=== PATIENT | male | born 1960 | race Hispanic/Latino ===

== ENCOUNTER 2021-07-13 11:40 | Inpatient (IN) | payer SELFPAY, OTHER ==
[2021-07-13] VITALS (10 sets, daily range): BP systolic 104–148; BP diastolic 65–87
[~2021-07-13] VITALS: Ht 160 cm; Wt 70.9 kg
[2021-07-13] MEDS ORDERED: DEXAMETHASONE SOD PHOS 10 MG/1 ML VIAL IV NR (12:00)
[2021-07-13 12:21] LABS: BASOPHILS % 0.1 % (0.0-1.0); EOSINOPHILS % 0.3 % (0.0-6.0); HEMATOCRIT 37.9 % (38.2-49.6); HEMOGLOBIN 12.8 g/dL (14.0-18.0); LYMPHOCYTES # (AUTO) 0.8 (1.0-3.2); LYMPHOCYTES % 11.8 % (18.0-39.1); MEAN CORPUSCULAR HEMOGLOBIN 30.2 pg (28-32); MEAN CORPUSCULAR HGB CONC 33.8 g/dL (31-35); MEAN CORPUSCULAR VOLUME 89.4 fL (81-99); MONOCYTES # (AUTO) 0.2 (0.2-0.8); MONOCYTES % 2.4 % (4.4-11.3); NEUTROPHILS % 84.5 % (38.7-80.0); PLATELET COUNT 239 x10e3/uL (140-360); RED BLOOD COUNT 4.24 x10e6/uL (4.3-5.7); RED CELL DISTRIBUTION WIDTH 13.5 % (11.7-14.4)
[2021-07-13 12:39] LABS: ALBUMIN/GLOBULIN RATIO 0.4 (0.8-2.0); ANION GAP 14.8 mmol/L (8-16); CALCIUM 7.9 mg/dL (8.4-10.2); CREATININE, SERUM 0.7 mg/dL (0.72-1.25); POTASSIUM 4.8 mmol/L (3.5-5.1)
[2021-07-13] MEDS ORDERED: HYDRALAZINE HCL 20 MG/ML VIAL IV PRN (14:15)
[2021-07-13] MEDS ORDERED: POTASSIUM CHLORIDE 20 MEQ TAB CR PO PRN (14:15)
[2021-07-13] MEDS ORDERED: GUAIFENESIN/CODEINE 5 ML LIQD PO PRN (14:15)
[2021-07-13] MEDS ORDERED: SIMETHICONE 80 MG CHEW PO PRN (14:15)
[2021-07-13] MEDS ORDERED: DEXTROSE 50% SYRINGE 50 ML IV PRN ×2 (14:15→15:00)
[2021-07-13] MEDS ORDERED: ONDANSETRON HCL INJ 2MG/ML 2ML 2 MG/ML VIAL IV PRN (14:15)
[2021-07-13] MEDS ORDERED: LIDOCAINE 4% PATCH TP PRN (14:15)
[2021-07-13] MEDS ORDERED: DOCUSATE SODIUM 100 MG CAP PO PRN (14:15)
[2021-07-13] MEDS ORDERED: TRAMADOL HCL 50 MG TAB PO PRN (14:15)
[2021-07-13] MEDS ORDERED: DIPHENHYDRAMINE HCL 25 MG CAP PO PRN (14:15)
[2021-07-13] MEDS ORDERED: ALBUTEROL/IPRATROPIUM 3 ML NEB NEB PRN (14:15)
[2021-07-13] MEDS ORDERED: CHLORASEPTIC SPRAY 177 ML BTL MM PRN (14:15)
[2021-07-13] MEDS: CEFTRIAXONE 1 GM in SODIUM CHLORIDE 0.9% 50ML 50 ML IV SCH (14:39)
[2021-07-13] MEDS ORDERED: REMDESIVIR 200MG 200 MG in SODIUM CHLORIDE 0.9% 100 ML IV ONE (14:45)
[2021-07-13] MEDS ORDERED: ENOXAPARIN SOD INJ 40 MG/0.4 ML SYR SC SCH (17:00)
[2021-07-13 17:35] LABS: FERRITIN 1891.76 ng/mL (21.81-274.66)
[2021-07-13] MEDS: INSULIN REGULAR, HUMAN 100 UNIT/1 ML SQ SCH ×2 (17:46→21:33)
[2021-07-13] MEDS: ENOXAPARIN INJ 80 MG/0.8 ML SYR SC SCH (21:32)
[2021-07-13] MEDS: METHYLPREDNISOLONE SOD SUCC 125 MG/2ML VIAL IV SCH (21:33)
[2021-07-14] VITALS (24 sets, daily range): BP systolic 89–119; BP diastolic 55–74
[2021-07-14 05:38] LABS: HEMATOCRIT 39.1 % (38.2-49.6); HEMOGLOBIN 13.1 g/dL (14.0-18.0); LYMPHOCYTES # (AUTO) 0.7 (1.0-3.2); MEAN CORPUSCULAR HGB CONC 33.5 g/dL (31-35); MEAN CORPUSCULAR VOLUME 89.5 fL (81-99); MONOCYTES # (AUTO) 0.1 (0.2-0.8); NEUTROPHILS % 82.4 % (38.7-80.0); PLATELET COUNT 261 x10e3/uL (140-360); RED BLOOD COUNT 4.37 x10e6/uL (4.3-5.7); RED CELL DISTRIBUTION WIDTH 13.4 % (11.7-14.4)
[2021-07-14 06:12] LABS: ANION GAP 13.3 mmol/L (8-16); CALCIUM 8.4 mg/dL (8.4-10.2); CREATININE, SERUM 0.66 mg/dL (0.72-1.25); MAGNESIUM 2.1 MG/DL (1.3-2.1); PHOSPHORUS 3.3 MG/DL (2.3-4.7); POTASSIUM 4.3 mmol/L (3.5-5.1)
[2021-07-14] MEDS: METHYLPREDNISOLONE SOD SUCC 125 MG/2ML VIAL IV SCH (06:27)
[2021-07-14 06:33] LABS: THYROID STIMULATING HORMONE 0.161 uIU/mL (0.350-4.940)
[2021-07-14] MEDS: PANTOPRAZOLE SOD 40 MG TABEC PO SCH (08:16)
[2021-07-14] MEDS: REMDESIVIR 100MG 100 MG in SODIUM CHLORIDE 0.9% 100 ML IV SCH (08:30)
[2021-07-14] MEDS: INSULIN REGULAR, HUMAN 100 UNIT/1 ML SQ SCH ×4 (08:30→20:20)
[2021-07-14] MEDS: CEFTRIAXONE 1 GM in SODIUM CHLORIDE 0.9% 50ML 50 ML IV SCH (08:31)
[2021-07-14] MEDS: ENOXAPARIN INJ 80 MG/0.8 ML SYR SC SCH ×2 (08:31→20:16)
[2021-07-14] MEDS ORDERED: DEXAMETHASONE PHOS 4MG/ML 5ML MULTIDOSE VIAL IV SCH (09:00)
[2021-07-14] MEDS ORDERED: LACTATED RINGER'S 500 ML INJ ONE (10:30)
[2021-07-14] MEDS: INSULIN GLARGINE 100 UNITS/ML VIAL SQ SCH ×2 (13:00→20:20)
[2021-07-14] MEDS: GUAIFENESIN/CODEINE 5 ML LIQD PO PRN ×2 (18:15→22:17)
[2021-07-14] MEDS ORDERED: METHYLPREDNISOLONE SOD SUCC 125 MG/2ML VIAL IV SCH (21:00)
[2021-07-14] MEDS: Vancomycin IV 1 GM in SODIUM CHLORIDE 0.9% 250ML 250 ML IV SCH (21:58)
[2021-07-14] MEDS: BENZONATATE 100 MG CAP PO PRN (22:17)
[2021-07-15] VITALS (25 sets, daily range): BP systolic 91–135; BP diastolic 58–82
[2021-07-15 05:02] LABS: BASOPHILS % 0.2 % (0.0-1.0); HEMATOCRIT 37.6 % (38.2-49.6); HEMOGLOBIN 12.8 g/dL (14.0-18.0); LYMPHOCYTES # (AUTO) 0.8 (1.0-3.2); LYMPHOCYTES % 6.7 % (18.0-39.1); MEAN CORPUSCULAR HEMOGLOBIN 29.9 pg (28-32); MEAN CORPUSCULAR VOLUME 87.9 fL (81-99); MONOCYTES # (AUTO) 0.2 (0.2-0.8); MONOCYTES % 1.9 % (4.4-11.3); NEUTROPHILS # (AUTO) 10.9 (2.1-6.9); NEUTROPHILS % 90.6 % (38.7-80.0); PLATELET COUNT 309 x10e3/uL (140-360); RED BLOOD COUNT 4.28 x10e6/uL (4.3-5.7); RED CELL DISTRIBUTION WIDTH 13.4 % (11.7-14.4)
[2021-07-15 05:22] LABS: ALBUMIN 1.8 g/dL (3.5-5.0); ALBUMIN/GLOBULIN RATIO 0.5 (0.8-2.0); CALCIUM 8.3 mg/dL (8.4-10.2); CREATININE, SERUM 0.65 mg/dL (0.72-1.25)
[2021-07-15 06:25] LABS: LYMPHOCYTES % (MANUAL) 6 % (19-48); MONOCYTES % (MANUAL) 1 % (3.4-9.0); NEUTROPHILS % (MANUAL) 93 % (40-74); PLATELET ESTIMATE ADEQUATE; PLATELET MORPHOLOGY COMMENT NORMAL; RBC MORPHOLOGY COMMENT NORMAL
[2021-07-15] MEDS: INSULIN REGULAR, HUMAN 100 UNIT/1 ML SQ SCH ×4 (07:30→21:26)
[2021-07-15] MEDS: PANTOPRAZOLE SOD 40 MG TABEC PO SCH (07:36)
[2021-07-15] MEDS ORDERED: ONDANSETRON HCL 4 MG ORAL DISINTEGRATING TAB SL PRN (07:45)
[2021-07-15] MEDS: CEFTRIAXONE 1 GM in SODIUM CHLORIDE 0.9% 50ML 50 ML IV SCH (08:27)
[2021-07-15] MEDS: BARICITINIB 2 MG TABLET PO SCH (08:28)
[2021-07-15] MEDS: ENOXAPARIN INJ 80 MG/0.8 ML SYR SC SCH ×2 (08:29→20:04)
[2021-07-15] MEDS: INSULIN GLARGINE 100 UNITS/ML VIAL SQ SCH ×2 (08:31→21:26)
[2021-07-15] MEDS: REMDESIVIR 100MG 100 MG in SODIUM CHLORIDE 0.9% 100 ML IV SCH (09:14)
[2021-07-15] MEDS: Vancomycin IV 1 GM in SODIUM CHLORIDE 0.9% 250ML 250 ML IV SCH ×2 (11:01→21:15)
[2021-07-15] MEDS: GUAIFENESIN/CODEINE 5 ML LIQD PO PRN (12:58)
[2021-07-15] MEDS: BENZONATATE 100 MG CAP PO PRN (20:04)
[2021-07-15 20:39] LABS: INR 1.03; PROTHROMBIN TIME 14.3 seconds (11.9-14.5)
[2021-07-15 20:40] LABS: PARTIAL THROMBOPLASTIN TIME 27.2 seconds (23.8-35.5)
[2021-07-15] MEDS: METHYLPREDNISOLONE SOD SUCC 40 MG/ML VIAL 1ML IV SCH (21:15)
[2021-07-16] VITALS (25 sets, daily range): BP systolic 92–118; BP diastolic 60–83
[2021-07-16] MEDS: DEXTROSE 50% SYRINGE 50 ML IV PRN (00:45)
[2021-07-16] MEDS ORDERED: SODIUM CHLORIDE 0.9% 250ML 250 ML ONE (03:43)
[2021-07-16 06:10] LABS: BASOPHILS % 0.1 % (0.0-1.0); HEMOGLOBIN 13.8 g/dL (14.0-18.0); LYMPHOCYTES # (AUTO) 0.8 (1.0-3.2); LYMPHOCYTES % 8.4 % (18.0-39.1); MEAN CORPUSCULAR HEMOGLOBIN 30.1 pg (28-32); MEAN CORPUSCULAR HGB CONC 33.7 g/dL (31-35); MEAN CORPUSCULAR VOLUME 89.5 fL (81-99); MONOCYTES # (AUTO) 0.2 (0.2-0.8); NEUTROPHILS # (AUTO) 8.4 (2.1-6.9); NEUTROPHILS % 89.1 % (38.7-80.0); PLATELET COUNT 301 x10e3/uL (140-360); RED BLOOD COUNT 4.58 x10e6/uL (4.3-5.7); RED CELL DISTRIBUTION WIDTH 13.2 % (11.7-14.4)
[2021-07-16 06:32] LABS: ALBUMIN/GLOBULIN RATIO 0.5 (0.8-2.0); ANION GAP 14.1 mmol/L (8-16); CALCIUM 8.2 mg/dL (8.4-10.2); CREATININE, SERUM 0.61 mg/dL (0.72-1.25); POTASSIUM 4.1 mmol/L (3.5-5.1)
[2021-07-16] MEDS: PANTOPRAZOLE SOD 40 MG TABEC PO SCH (07:26)
[2021-07-16] MEDS: INSULIN REGULAR, HUMAN 100 UNIT/1 ML SQ SCH ×4 (07:30→21:15)
[2021-07-16] MEDS: BENZONATATE 100 MG CAP PO PRN (08:36)
[2021-07-16] MEDS: BARICITINIB 2 MG TABLET PO SCH (08:36)
[2021-07-16] MEDS: CEFTRIAXONE 1 GM in SODIUM CHLORIDE 0.9% 50ML 50 ML IV SCH (08:36)
[2021-07-16] MEDS: ENOXAPARIN INJ 80 MG/0.8 ML SYR SC SCH ×2 (08:38→21:15)
[2021-07-16] MEDS: INSULIN GLARGINE 100 UNITS/ML VIAL SQ SCH ×2 (08:39→21:16)
[2021-07-16] MEDS: REMDESIVIR 100MG 100 MG in SODIUM CHLORIDE 0.9% 100 ML IV SCH (09:26)
[2021-07-16] MEDS: Vancomycin IV 1 GM in SODIUM CHLORIDE 0.9% 250ML 250 ML IV SCH (10:52)
[2021-07-16] MEDS: GUAIFENESIN/CODEINE 5 ML LIQD PO PRN ×2 (12:37→21:53)
[2021-07-16] MEDS: METHYLPREDNISOLONE SOD SUCC 40 MG/ML VIAL 1ML IV SCH (21:16)
[2021-07-17] VITALS (24 sets, daily range): BP systolic 79–148; BP diastolic 46–89
[2021-07-17] MEDS: BENZONATATE 100 MG CAP PO PRN (05:00)
[2021-07-17 05:01] LABS: BASOPHILS % 0.1 % (0.0-1.0); HEMATOCRIT 42.6 % (38.2-49.6); HEMOGLOBIN 14.7 g/dL (14.0-18.0); LYMPHOCYTES # (AUTO) 0.9 (1.0-3.2); LYMPHOCYTES % 9.7 % (18.0-39.1); MEAN CORPUSCULAR HEMOGLOBIN 30.4 pg (28-32); MEAN CORPUSCULAR HGB CONC 34.5 g/dL (31-35); MONOCYTES # (AUTO) 0.1 (0.2-0.8); MONOCYTES % 1.5 % (4.4-11.3); NEUTROPHILS # (AUTO) 7.9 (2.1-6.9); NEUTROPHILS % 87.6 % (38.7-80.0); PLATELET COUNT 283 x10e3/uL (140-360); RED BLOOD COUNT 4.84 x10e6/uL (4.3-5.7); RED CELL DISTRIBUTION WIDTH 13.3 % (11.7-14.4)
[2021-07-17 05:26] LABS: ALBUMIN/GLOBULIN RATIO 0.5 (0.8-2.0); ANION GAP 14.6 mmol/L (8-16); CALCIUM 8.3 mg/dL (8.4-10.2); CREATININE, SERUM 0.65 mg/dL (0.72-1.25); POTASSIUM 4.6 mmol/L (3.5-5.1)
[2021-07-17] MEDS: PANTOPRAZOLE SOD 40 MG TABEC PO SCH (07:37)
[2021-07-17] MEDS: INSULIN REGULAR, HUMAN 100 UNIT/1 ML SQ SCH ×4 (08:07→21:00)
[2021-07-17] MEDS: REMDESIVIR 100MG 100 MG in SODIUM CHLORIDE 0.9% 100 ML IV SCH (08:27)
[2021-07-17] MEDS: BARICITINIB 2 MG TABLET PO SCH (08:27)
[2021-07-17] MEDS: ENOXAPARIN INJ 80 MG/0.8 ML SYR SC SCH ×2 (08:27→21:26)
[2021-07-17] MEDS: INSULIN GLARGINE 100 UNITS/ML VIAL SQ SCH (08:28)
[2021-07-17] MEDS ORDERED: WATER STERILE 10 ML VIAL ONE (13:18)
[2021-07-17] MEDS ORDERED: MIDAZOLAM HCL 2 MG/2 ML VIAL ONE (13:18)
[2021-07-17] MEDS ORDERED: ETOMIDATE 2 MG/ML 10 ML INJ IV ONE (13:18)
[2021-07-17] MEDS ORDERED: VECURONIUM BROMIDE FOR INJ 20 MG VIAL ONE (13:18)
[2021-07-17] MEDS ORDERED: SUCCINYLCHOLINE CHLORIDE 20 MG/ML 10ML VIAL ONE (13:18)
[2021-07-17] MEDS ORDERED: DEXMEDETOMIDINE 400MCG/NS100ML 100 ML IV PRN (16:00)
[2021-07-17] MEDS ORDERED: SODIUM CHLORIDE 0.9% 1000ML 1,000 ML ONE ×2 (16:43→18:06)
[2021-07-17] MEDS: FENTANYL 2000MCG/NS 250 250 ML IV SCH (17:12)
[2021-07-17] MEDS: MIDAZOLAM HCL 5MG/ML 10ML VIAL 100 ML IV PRN ×2 (17:13→23:51)
[2021-07-17] MEDS ORDERED: NOREPINEPHRINE 8 MG/D5W 250 ML 250 ML IV PRN (18:00)
[2021-07-17] MEDS ORDERED: SODIUM CHLORIDE 0.9% 1000ML 500 ML IV ONE (18:00)
[2021-07-17 19:50] LABS: ABG HCO3 27 mmol/L (22-26); ABG PCO2 46 mmHg (35-45); ABG PH 7.37 (7.35-7.45); ABG PO2 70 mmHg (80-105); ABG TCO2 28
[2021-07-17] MEDS: METHYLPREDNISOLONE SOD SUCC 40 MG/ML VIAL 1ML IV SCH (21:26)
[2021-07-18] VITALS (25 sets, daily range): BP systolic 93–131; BP diastolic 47–73
[2021-07-18] MEDS: INSULIN REGULAR, HUMAN 100 UNIT/1 ML SQ SCH ×4 (00:58→17:28)
[2021-07-18] MEDS: FENTANYL 2000MCG/NS 250 250 ML IV SCH ×3 (02:20→19:42)
[2021-07-18] MEDS: MIDAZOLAM HCL 5MG/ML 10ML VIAL 100 ML IV PRN ×2 (05:39→08:57)
[2021-07-18 05:48] LABS: BASOPHILS % 0.1 % (0.0-1.0); HEMATOCRIT 40.5 % (38.2-49.6); HEMOGLOBIN 13.3 g/dL (14.0-18.0); LYMPHOCYTES # (AUTO) 0.8 (1.0-3.2); LYMPHOCYTES % 7.7 % (18.0-39.1); MEAN CORPUSCULAR HEMOGLOBIN 30.2 pg (28-32); MEAN CORPUSCULAR HGB CONC 32.8 g/dL (31-35); MEAN CORPUSCULAR VOLUME 91.8 fL (81-99); MONOCYTES # (AUTO) 0.1 (0.2-0.8); NEUTROPHILS # (AUTO) 9.2 (2.1-6.9); NEUTROPHILS % 90.3 % (38.7-80.0); PLATELET COUNT 347 x10e3/uL (140-360); RED BLOOD COUNT 4.41 x10e6/uL (4.3-5.7); RED CELL DISTRIBUTION WIDTH 13.4 % (11.7-14.4)
[2021-07-18 06:15] LABS: ALBUMIN 1.8 g/dL (3.5-5.0); ALBUMIN/GLOBULIN RATIO 0.4 (0.8-2.0); ANION GAP 13.5 mmol/L (8-16); CALCIUM 7.9 mg/dL (8.4-10.2); CREATININE, SERUM 0.76 mg/dL (0.72-1.25)
[2021-07-18 06:17] LABS: POTASSIUM 5.5 mmol/L (3.5-5.1)
[2021-07-18 07:26] LABS: LYMPHOCYTES % (MANUAL) 4 % (19-48); MONOCYTES % (MANUAL) 1 % (3.4-9.0); NEUTROPHILS % (MANUAL) 94 % (40-74); PLATELET ESTIMATE ADEQUATE; PLATELET MORPHOLOGY COMMENT NORMAL; RBC MORPHOLOGY COMMENT NORMAL
[2021-07-18 07:55] LABS: ABG HCO3 28 mmol/L (22-26); ABG PCO2 56 mmHg (35-45); ABG PH 7.31 (7.35-7.45); ABG PO2 133 mmHg (80-105); ABG TCO2 30
[2021-07-18] MEDS: BARICITINIB 2 MG TABLET PO SCH (08:41)
[2021-07-18] MEDS: FAMOTIDINE 20 MG/2 ML VIAL IV SCH ×2 (08:41→17:05)
[2021-07-18] MEDS: SENNA-S TABLET PO SCH (08:41)
[2021-07-18] MEDS: ENOXAPARIN INJ 80 MG/0.8 ML SYR SC SCH ×2 (08:42→21:13)
[2021-07-18] MEDS: INSULIN GLARGINE 100 UNITS/ML VIAL SQ SCH (08:56)
[2021-07-18 14:03] LABS: ANION GAP 13.2 mmol/L (8-16); CALCIUM 7.9 mg/dL (8.4-10.2); CREATININE, SERUM 0.71 mg/dL (0.72-1.25); POTASSIUM 5.2 mmol/L (3.5-5.1)
[2021-07-18] MEDS ORDERED: FUROSEMIDE INJ 10 MG/ML 4 ML VIAL IV ONE (14:15)
[2021-07-18] MEDS ORDERED: FUROSEMIDE INJ 10 MG/ML 4 ML VIAL ONE (14:28)
[2021-07-18] MEDS: METHYLPREDNISOLONE SOD SUCC 40 MG/ML VIAL 1ML IV SCH (22:26)
[2021-07-19] VITALS (27 sets, daily range): BP systolic 92–140; BP diastolic 41–77
[2021-07-19] MEDS: INSULIN REGULAR, HUMAN 100 UNIT/1 ML SQ SCH ×5 (00:15→23:35)
[2021-07-19] MEDS: MIDAZOLAM HCL 5MG/ML 10ML VIAL 100 ML IV PRN ×2 (03:00→15:19)
[2021-07-19 04:56] LABS: BASOPHILS % 0.1 % (0.0-1.0); EOSINOPHILS # (AUTO) 0.1 (0.0-0.4); EOSINOPHILS % 0.9 % (0.0-6.0); HEMATOCRIT 38.2 % (38.2-49.6); HEMOGLOBIN 12.9 g/dL (14.0-18.0); LYMPHOCYTES # (AUTO) 1.9 (1.0-3.2); LYMPHOCYTES % 16.2 % (18.0-39.1); MEAN CORPUSCULAR HEMOGLOBIN 29.9 pg (28-32); MEAN CORPUSCULAR HGB CONC 33.8 g/dL (31-35); MEAN CORPUSCULAR VOLUME 88.6 fL (81-99); MONOCYTES # (AUTO) 0.3 (0.2-0.8); MONOCYTES % 2.5 % (4.4-11.3); NEUTROPHILS # (AUTO) 9.3 (2.1-6.9); NEUTROPHILS % 79.3 % (38.7-80.0); PLATELET COUNT 332 x10e3/uL (140-360); RED BLOOD COUNT 4.31 x10e6/uL (4.3-5.7); RED CELL DISTRIBUTION WIDTH 13.2 % (11.7-14.4)
[2021-07-19 05:14] LABS: ALBUMIN 1.8 g/dL (3.5-5.0); ALBUMIN/GLOBULIN RATIO 0.5 (0.8-2.0); ANION GAP 13.5 mmol/L (8-16); CALCIUM 8.3 mg/dL (8.4-10.2); CREATININE, SERUM 0.7 mg/dL (0.72-1.25); POTASSIUM 4.5 mmol/L (3.5-5.1)
[2021-07-19] MEDS: FENTANYL 2000MCG/NS 250 250 ML IV SCH ×2 (05:27→15:18)
[2021-07-19 08:14] LABS: ABG HCO3 33 mmol/L (22-26); ABG PCO2 53 mmHg (35-45); ABG PH 7.41 (7.35-7.45); ABG PO2 105 mmHg (80-105); ABG TCO2 35
[2021-07-19] MEDS: BARICITINIB 2 MG TABLET PO SCH (09:41)
[2021-07-19] MEDS: FAMOTIDINE 20 MG/2 ML VIAL IV SCH ×2 (09:41→17:08)
[2021-07-19] MEDS: SENNA-S TABLET PO SCH (09:41)
[2021-07-19] MEDS: ENOXAPARIN INJ 80 MG/0.8 ML SYR SC SCH ×2 (09:41→21:21)
[2021-07-19] MEDS: INSULIN GLARGINE 100 UNITS/ML VIAL SQ SCH (09:42)
[2021-07-19] MEDS ORDERED: CEFEPIME 1 GM in SODIUM CHLORIDE 0.9% 50ML 50 ML IV SCH (14:00)
[2021-07-19] MEDS: METHYLPREDNISOLONE SOD SUCC 40 MG/ML VIAL 1ML IV SCH (22:12)
[2021-07-20] VITALS (23 sets, daily range): BP systolic 90–156; BP diastolic 45–66
[2021-07-20] MEDS: MIDAZOLAM HCL 5MG/ML 10ML VIAL 100 ML IV PRN ×3 (00:10→21:17)
[2021-07-20 05:00] LABS: BASOPHILS % 0.1 % (0.0-1.0); HEMATOCRIT 37.7 % (38.2-49.6); HEMOGLOBIN 12.7 g/dL (14.0-18.0); LYMPHOCYTES # (AUTO) 0.5 (1.0-3.2); LYMPHOCYTES % 5.6 % (18.0-39.1); MEAN CORPUSCULAR HEMOGLOBIN 30.2 pg (28-32); MEAN CORPUSCULAR HGB CONC 33.7 g/dL (31-35); MEAN CORPUSCULAR VOLUME 89.5 fL (81-99); MONOCYTES # (AUTO) 0.1 (0.2-0.8); MONOCYTES % 0.7 % (4.4-11.3); NEUTROPHILS % 92.6 % (38.7-80.0); PLATELET COUNT 360 x10e3/uL (140-360); RED BLOOD COUNT 4.21 x10e6/uL (4.3-5.7); RED CELL DISTRIBUTION WIDTH 13.2 % (11.7-14.4)
[2021-07-20 05:28] LABS: ALBUMIN 1.9 g/dL (3.5-5.0); ALBUMIN/GLOBULIN RATIO 0.4 (0.8-2.0); ANION GAP 15.8 mmol/L (8-16); CALCIUM 8.4 mg/dL (8.4-10.2); CREATININE, SERUM 0.74 mg/dL (0.72-1.25); POTASSIUM 4.8 mmol/L (3.5-5.1)
[2021-07-20] MEDS: INSULIN REGULAR, HUMAN 100 UNIT/1 ML SQ SCH ×3 (05:51→18:18)
[2021-07-20 08:08] LABS: ABG HCO3 33 mmol/L (22-26); ABG PCO2 52 mmHg (35-45); ABG PH 7.41 (7.35-7.45); ABG PO2 73 mmHg (80-105); ABG TCO2 34
[2021-07-20] MEDS: FAMOTIDINE 20 MG/2 ML VIAL IV SCH ×2 (08:26→18:08)
[2021-07-20] MEDS: SENNA-S TABLET PO SCH (08:26)
[2021-07-20] MEDS: ENOXAPARIN INJ 80 MG/0.8 ML SYR SC SCH ×2 (08:26→21:16)
[2021-07-20] MEDS: BARICITINIB 2 MG TABLET PO SCH (08:26)
[2021-07-20] MEDS ORDERED: INSULIN GLARGINE 100 UNITS/ML VIAL SQ SCH (09:00)
[2021-07-20] MEDS: FENTANYL 2000MCG/NS 250 250 ML IV SCH (11:20)
[2021-07-20 11:41] LABS: ABG HCO3 34 mmol/L (22-26); ABG PCO2 52 mmHg (35-45); ABG PH 7.43 (7.35-7.45); ABG PO2 83 mmHg (80-105); ABG TCO2 36
[2021-07-20] MEDS: INSULIN GLARGINE 100 UNITS/ML VIAL SQ SCH (21:17)
[2021-07-20] MEDS: METHYLPREDNISOLONE SOD SUCC 40 MG/ML VIAL 1ML IV SCH (21:18)
[2021-07-21] VITALS (26 sets, daily range): BP systolic 80–145; BP diastolic 46–97
[2021-07-21] MEDS: FENTANYL 2000MCG/NS 250 250 ML IV SCH (00:21)
[2021-07-21 05:31] LABS: BASOPHILS % 0.1 % (0.0-1.0); LYMPHOCYTES # (AUTO) 0.5 (1.0-3.2); LYMPHOCYTES % 5.4 % (18.0-39.1); MEAN CORPUSCULAR HEMOGLOBIN 30.4 pg (28-32); MEAN CORPUSCULAR HGB CONC 33.3 g/dL (31-35); MEAN CORPUSCULAR VOLUME 91.1 fL (81-99); MONOCYTES # (AUTO) 0.2 (0.2-0.8); MONOCYTES % 1.8 % (4.4-11.3); NEUTROPHILS # (AUTO) 8.6 (2.1-6.9); NEUTROPHILS % 92.2 % (38.7-80.0); PLATELET COUNT 359 x10e3/uL (140-360); RED BLOOD COUNT 4.28 x10e6/uL (4.3-5.7); RED CELL DISTRIBUTION WIDTH 12.8 % (11.7-14.4)
[2021-07-21] MEDS: INSULIN REGULAR, HUMAN 100 UNIT/1 ML SQ SCH ×4 (05:44→18:14)
[2021-07-21 05:55] LABS: ALBUMIN 1.9 g/dL (3.5-5.0); ALBUMIN/GLOBULIN RATIO 0.4 (0.8-2.0); ANION GAP 12.4 mmol/L (8-16); CALCIUM 8.5 mg/dL (8.4-10.2); CREATININE, SERUM 0.61 mg/dL (0.72-1.25); POTASSIUM 4.4 mmol/L (3.5-5.1)
[2021-07-21] MEDS: MIDAZOLAM HCL 5MG/ML 10ML VIAL 100 ML IV PRN (06:15)
[2021-07-21 08:12] LABS: ABG HCO3 36 mmol/L (22-26); ABG PCO2 52 mmHg (35-45); ABG PH 7.44 (7.35-7.45); ABG PO2 73 mmHg (80-105); ABG TCO2 37
[2021-07-21] MEDS ORDERED: HYDRALAZINE HCL 20 MG/ML VIAL IV PRN (08:15)
[2021-07-21] MEDS ORDERED: LACTULOSE SYRUP 20 GM/30 ML UDC PO ONE (09:00)
[2021-07-21] MEDS: BARICITINIB 2 MG TABLET PO SCH (09:34)
[2021-07-21] MEDS: FAMOTIDINE 20 MG/2 ML VIAL IV SCH ×2 (09:34→17:33)
[2021-07-21] MEDS: SENNA-S TABLET PO SCH (09:34)
[2021-07-21] MEDS: ENOXAPARIN INJ 80 MG/0.8 ML SYR SC SCH ×2 (09:34→21:45)
[2021-07-21] MEDS: INSULIN GLARGINE 100 UNITS/ML VIAL SQ SCH ×2 (09:35→21:45)
[2021-07-21] MEDS: METHYLPREDNISOLONE SOD SUCC 40 MG/ML VIAL 1ML IV SCH (21:50)
[2021-07-21] MEDS ORDERED: VECURONIUM BROMIDE FOR INJ 20 MG VIAL ONE (22:19)
[2021-07-21] MEDS: ACETAMINOPHEN 325 MG TAB PO PRN (23:15)
[2021-07-22] VITALS (28 sets, daily range): BP systolic 90–225; BP diastolic 45–89
[2021-07-22] MEDS ORDERED: VECURONIUM BROMIDE FOR INJ 20 MG VIAL IV ONE
[2021-07-22] MEDS: MIDAZOLAM HCL 5MG/ML 10ML VIAL 100 ML IV PRN ×2 (01:23→21:58)
[2021-07-22] MEDS: FENTANYL 2000MCG/NS 250 250 ML IV SCH ×2 (01:23→13:11)
[2021-07-22] MEDS ORDERED: ATROPINE SULFATE 0.1 MG/ML 10ML SYR IV PRN (05:00)
[2021-07-22 05:39] LABS: BASOPHILS % 0.1 % (0.0-1.0); HEMATOCRIT 41.8 % (38.2-49.6); LYMPHOCYTES # (AUTO) 0.5 (1.0-3.2); LYMPHOCYTES % 4.4 % (18.0-39.1); MEAN CORPUSCULAR HEMOGLOBIN 30.2 pg (28-32); MEAN CORPUSCULAR HGB CONC 33.5 g/dL (31-35); MEAN CORPUSCULAR VOLUME 90.1 fL (81-99); MONOCYTES # (AUTO) 0.2 (0.2-0.8); MONOCYTES % 1.8 % (4.4-11.3); NEUTROPHILS # (AUTO) 9.8 (2.1-6.9); NEUTROPHILS % 93.4 % (38.7-80.0); PLATELET COUNT 376 x10e3/uL (140-360); RED BLOOD COUNT 4.64 x10e6/uL (4.3-5.7); RED CELL DISTRIBUTION WIDTH 12.8 % (11.7-14.4)
[2021-07-22] MEDS ORDERED: ATROPINE SULFATE 0.1 MG/ML 10ML SYR ONE (05:54)
[2021-07-22] MEDS: INSULIN REGULAR, HUMAN 100 UNIT/1 ML SQ SCH ×4 (06:00→18:43)
[2021-07-22 06:13] LABS: ALBUMIN/GLOBULIN RATIO 0.4 (0.8-2.0); ANION GAP 12.9 mmol/L (8-16); CALCIUM 9.3 mg/dL (8.4-10.2); CREATININE, SERUM 0.68 mg/dL (0.72-1.25); POTASSIUM 4.9 mmol/L (3.5-5.1)
[2021-07-22] MEDS ORDERED: METOCLOPRAMIDE HCL 10 MG/2ML VIAL IV ONE (07:20)
[2021-07-22 09:05] LABS: ABG HCO3 33 mmol/L (22-26); ABG PCO2 49 mmHg (35-45); ABG PH 7.44 (7.35-7.45); ABG PO2 99 mmHg (80-105); ABG TCO2 34
[2021-07-22] MEDS ORDERED: LACTULOSE SYRUP 20 GM/30 ML UDC PO ONE (09:10)
[2021-07-22] MEDS ORDERED: BISACODYL 10 MG SUPP PR ONE (09:10)
[2021-07-22] MEDS: SENNA-S TABLET PO SCH (10:06)
[2021-07-22] MEDS: BARICITINIB 2 MG TABLET PO SCH (10:06)
[2021-07-22] MEDS: FAMOTIDINE 20 MG/2 ML VIAL IV SCH ×2 (10:06→18:42)
[2021-07-22] MEDS: ENOXAPARIN INJ 80 MG/0.8 ML SYR SC SCH (10:06)
[2021-07-22] MEDS: INSULIN GLARGINE 100 UNITS/ML VIAL SQ SCH ×2 (10:07→21:55)
[2021-07-22] MEDS: METOCLOPRAMIDE HCL 10 MG/2ML VIAL IV SCH ×2 (13:01→18:42)
[2021-07-22] MEDS: METHYLPREDNISOLONE SOD SUCC 40 MG/ML VIAL 1ML IV SCH (22:00)
[2021-07-23] VITALS (26 sets, daily range): BP systolic 83–144; BP diastolic 40–94
[2021-07-23] MEDS: METOCLOPRAMIDE HCL 10 MG/2ML VIAL IV SCH ×4 (02:56→17:20)
[2021-07-23] MEDS: FENTANYL 2000MCG/NS 250 250 ML IV SCH ×2 (05:23→22:25)
[2021-07-23] MEDS: MIDAZOLAM HCL 5MG/ML 10ML VIAL 100 ML IV PRN ×2 (05:32→13:36)
[2021-07-23] MEDS: INSULIN REGULAR, HUMAN 100 UNIT/1 ML SQ SCH ×4 (06:00→17:20)
[2021-07-23 06:20] LABS: BASOPHILS % 0.1 % (0.0-1.0); HEMATOCRIT 41.3 % (38.2-49.6); HEMOGLOBIN 13.7 g/dL (14.0-18.0); LYMPHOCYTES # (AUTO) 0.5 (1.0-3.2); LYMPHOCYTES % 6.5 % (18.0-39.1); MEAN CORPUSCULAR HGB CONC 33.2 g/dL (31-35); MEAN CORPUSCULAR VOLUME 90.4 fL (81-99); MONOCYTES # (AUTO) 0.1 (0.2-0.8); MONOCYTES % 1.4 % (4.4-11.3); NEUTROPHILS # (AUTO) 7.6 (2.1-6.9); NEUTROPHILS % 91.6 % (38.7-80.0); PLATELET COUNT 388 x10e3/uL (140-360); RED BLOOD COUNT 4.57 x10e6/uL (4.3-5.7)
[2021-07-23 06:50] LABS: ALBUMIN/GLOBULIN RATIO 0.4 (0.8-2.0); ANION GAP 13.7 mmol/L (8-16); CREATININE, SERUM 0.65 mg/dL (0.72-1.25); POTASSIUM 4.7 mmol/L (3.5-5.1)
[2021-07-23 08:16] LABS: ABG HCO3 34 mmol/L (22-26); ABG PCO2 49 mmHg (35-45); ABG PH 7.45 (7.35-7.45); ABG PO2 95 mmHg (80-105)
[2021-07-23 08:17] LABS: ABG TCO2 35
[2021-07-23] MEDS: SENNA-S TABLET PO SCH (08:44)
[2021-07-23] MEDS: BARICITINIB 2 MG TABLET PO SCH (08:44)
[2021-07-23] MEDS: FAMOTIDINE 20 MG/2 ML VIAL IV SCH ×2 (08:44→17:20)
[2021-07-23] MEDS: INSULIN GLARGINE 100 UNITS/ML VIAL SQ SCH ×2 (08:46→20:42)
[2021-07-23] MEDS ORDERED: BUPIVACAINE HCL 0.5% INJ 30 ML VIAL INJ ONE (10:03)
[2021-07-23] MEDS ORDERED: LIDOCAINE HCL 1% 30ML-PF VIAL ONE (10:03)
[2021-07-23] MEDS ORDERED: LIDOCAINE 1% W/EPINEPHRINE 20 ML VIAL ONE (10:34)
[2021-07-23 13:38] LABS: ABG PH 7.43 (7.35-7.45)
[2021-07-23 13:39] LABS: ABG HCO3 33 mmol/L (22-26); ABG PCO2 50 mmHg (35-45); ABG PO2 94 mmHg (80-105); ABG TCO2 34
[2021-07-23] MEDS ORDERED: POVIDONE IODINE 0.05% 0.05 % ML PO ONE (13:50)
[2021-07-23] MEDS ORDERED: ROCURONIUM BROMIDE 10 MG/ML 5ML VIAL IV ONE (13:50)
[2021-07-23] MEDS ORDERED: SEVOFLURANE INHAL SOLN 250 ML PEN BTL ONE (13:50)
[2021-07-23] MEDS ORDERED: FENTANYL CITRATE/PF 100MCG/2 ML INJ ONE (14:32)
[2021-07-23] MEDS: ACETAMINOPHEN 325 MG TAB PO PRN (20:11)
[2021-07-23] MEDS: METHYLPREDNISOLONE SOD SUCC 40 MG/ML VIAL 1ML IV SCH (22:00)
[2021-07-24] VITALS (30 sets, daily range): BP systolic 98–143; BP diastolic 47–72
[2021-07-24] MEDS: METOCLOPRAMIDE HCL 10 MG/2ML VIAL IV SCH ×4 (00:14→17:39)
[2021-07-24] MEDS: MIDAZOLAM HCL 5MG/ML 10ML VIAL 100 ML IV PRN ×2 (05:00→23:25)
[2021-07-24 05:20] LABS: BASOPHILS % 0.2 % (0.0-1.0); HEMATOCRIT 44.6 % (38.2-49.6); LYMPHOCYTES # (AUTO) 0.7 (1.0-3.2); LYMPHOCYTES % 5.6 % (18.0-39.1); MEAN CORPUSCULAR HEMOGLOBIN 30.1 pg (28-32); MEAN CORPUSCULAR HGB CONC 33.6 g/dL (31-35); MEAN CORPUSCULAR VOLUME 89.6 fL (81-99); MONOCYTES # (AUTO) 0.2 (0.2-0.8); MONOCYTES % 1.4 % (4.4-11.3); NEUTROPHILS % 92.3 % (38.7-80.0); PLATELET COUNT 398 x10e3/uL (140-360); RED BLOOD COUNT 4.98 x10e6/uL (4.3-5.7); RED CELL DISTRIBUTION WIDTH 12.9 % (11.7-14.4)
[2021-07-24 05:30] LABS: ANION GAP 16.7 mmol/L (8-16); CALCIUM 9.5 mg/dL (8.4-10.2); CREATININE, SERUM 0.65 mg/dL (0.72-1.25); POTASSIUM 4.7 mmol/L (3.5-5.1)
[2021-07-24] MEDS: INSULIN REGULAR, HUMAN 100 UNIT/1 ML SQ SCH ×4 (05:38→18:25)
[2021-07-24 08:45] LABS: ABG HCO3 33 mmol/L (22-26); ABG PCO2 48 mmHg (35-45); ABG PH 7.44 (7.35-7.45); ABG PO2 93 mmHg (80-105); ABG TCO2 34
[2021-07-24] MEDS: ENOXAPARIN INJ 80 MG/0.8 ML SYR SC SCH ×2 (09:57→21:09)
[2021-07-24] MEDS: SENNA-S TABLET PO SCH (09:57)
[2021-07-24] MEDS: FAMOTIDINE 20 MG/2 ML VIAL IV SCH ×2 (09:57→17:39)
[2021-07-24] MEDS: ALBUMIN 25% 25GM 100ML 0.25 GM/ML BTL IV SCH ×3 (09:57→21:38)
[2021-07-24] MEDS: INSULIN GLARGINE 100 UNITS/ML VIAL SQ SCH ×2 (10:32→21:10)
[2021-07-24] MEDS: BARICITINIB 2 MG TABLET PO SCH (12:31)
[2021-07-25] VITALS (26 sets, daily range): BP systolic 92–122; BP diastolic 36–61
[2021-07-25] MEDS: METOCLOPRAMIDE HCL 10 MG/2ML VIAL IV SCH ×5 (00:13→23:28)
[2021-07-25] MEDS: ACETAMINOPHEN 325 MG TAB PO PRN ×3 (02:00→22:41)
[2021-07-25 04:48] LABS: BASOPHILS % 0.1 % (0.0-1.0); EOSINOPHILS # (AUTO) 0.2 (0.0-0.4); EOSINOPHILS % 1.5 % (0.0-6.0); HEMATOCRIT 34.7 % (38.2-49.6); HEMOGLOBIN 11.5 g/dL (14.0-18.0); LYMPHOCYTES # (AUTO) 1.3 (1.0-3.2); LYMPHOCYTES % 13.2 % (18.0-39.1); MEAN CORPUSCULAR HEMOGLOBIN 29.8 pg (28-32); MEAN CORPUSCULAR HGB CONC 33.1 g/dL (31-35); MEAN CORPUSCULAR VOLUME 89.9 fL (81-99); MONOCYTES # (AUTO) 0.2 (0.2-0.8); MONOCYTES % 1.6 % (4.4-11.3); NEUTROPHILS # (AUTO) 8.4 (2.1-6.9); NEUTROPHILS % 83.1 % (38.7-80.0); PLATELET COUNT 360 x10e3/uL (140-360); RED BLOOD COUNT 3.86 x10e6/uL (4.3-5.7); RED CELL DISTRIBUTION WIDTH 13.1 % (11.7-14.4)
[2021-07-25] MEDS: FENTANYL 2000MCG/NS 250 250 ML IV SCH ×2 (05:05→21:00)
[2021-07-25 05:17] LABS: ALBUMIN 3.3 g/dL (3.5-5.0); ALBUMIN/GLOBULIN RATIO 0.9 (0.8-2.0); ANION GAP 14.4 mmol/L (8-16); CALCIUM 9.2 mg/dL (8.4-10.2); CREATININE, SERUM 0.75 mg/dL (0.72-1.25); POTASSIUM 4.4 mmol/L (3.5-5.1)
[2021-07-25] MEDS: INSULIN REGULAR, HUMAN 100 UNIT/1 ML SQ SCH ×5 (05:45→23:29)
[2021-07-25] MEDS: MIDAZOLAM HCL 5MG/ML 10ML VIAL 100 ML IV PRN (08:00)
[2021-07-25] MEDS: INSULIN GLARGINE 100 UNITS/ML VIAL SQ SCH ×2 (08:51→22:05)
[2021-07-25] MEDS: ENOXAPARIN INJ 80 MG/0.8 ML SYR SC SCH ×2 (08:51→21:08)
[2021-07-25] MEDS: FAMOTIDINE 20 MG/2 ML VIAL IV SCH ×2 (08:51→16:22)
[2021-07-25] MEDS: SENNA-S TABLET PO SCH (08:51)
[2021-07-25 10:23] LABS: ABG PCO2 44 mmHg (35-45); ABG PH 7.44 (7.35-7.45)
[2021-07-25 10:24] LABS: ABG HCO3 30 mmol/L (22-26); ABG PO2 104 mmHg (80-105); ABG TCO2 31
[2021-07-25] MEDS ORDERED: MIDAZOLAM HCL 2 MG/2 ML VIAL IV PRN (12:45)
[2021-07-25] MEDS: PROPOFOL IV EMULSION 10MG/ML 100 ML IV PRN (14:03)
[2021-07-25 17:29] LABS: ABG HCO3 30 mmol/L (22-26); ABG PCO2 46 mmHg (35-45); ABG PH 7.42 (7.35-7.45); ABG PO2 94 mmHg (80-105); ABG TCO2 31
[2021-07-26] VITALS (24 sets, daily range): BP systolic 90–157; BP diastolic 41–78
[2021-07-26] MEDS: PROPOFOL IV EMULSION 10MG/ML 100 ML IV PRN ×2 (03:00→22:00)
[2021-07-26] MEDS: METOCLOPRAMIDE HCL 10 MG/2ML VIAL IV SCH ×3 (05:20→17:40)
[2021-07-26] MEDS: INSULIN REGULAR, HUMAN 100 UNIT/1 ML SQ SCH ×3 (06:34→17:41)
[2021-07-26 06:35] LABS: BASOPHILS % 0.2 % (0.0-1.0); EOSINOPHILS # (AUTO) 0.1 (0.0-0.4); EOSINOPHILS % 1.5 % (0.0-6.0); HEMATOCRIT 37.7 % (38.2-49.6); HEMOGLOBIN 12.2 g/dL (14.0-18.0); LYMPHOCYTES # (AUTO) 1.3 (1.0-3.2); LYMPHOCYTES % 14.3 % (18.0-39.1); MEAN CORPUSCULAR HEMOGLOBIN 29.7 pg (28-32); MEAN CORPUSCULAR HGB CONC 32.4 g/dL (31-35); MEAN CORPUSCULAR VOLUME 91.7 fL (81-99); MONOCYTES # (AUTO) 0.2 (0.2-0.8); MONOCYTES % 2.3 % (4.4-11.3); NEUTROPHILS # (AUTO) 7.4 (2.1-6.9); NEUTROPHILS % 81.4 % (38.7-80.0); PLATELET COUNT 405 x10e3/uL (140-360); RED BLOOD COUNT 4.11 x10e6/uL (4.3-5.7); RED CELL DISTRIBUTION WIDTH 13.2 % (11.7-14.4)
[2021-07-26 07:15] LABS: ALBUMIN 2.8 g/dL (3.5-5.0); ALBUMIN/GLOBULIN RATIO 0.7 (0.8-2.0); ANION GAP 15.3 mmol/L (8-16); CREATININE, SERUM 0.66 mg/dL (0.72-1.25); POTASSIUM 4.3 mmol/L (3.5-5.1)
[2021-07-26 08:42] LABS: ABG HCO3 29 mmol/L (22-26); ABG PCO2 43 mmHg (35-45); ABG PH 7.44 (7.35-7.45); ABG PO2 77 mmHg (80-105); ABG TCO2 30
[2021-07-26] MEDS: ENOXAPARIN INJ 80 MG/0.8 ML SYR SC SCH ×2 (08:44→20:46)
[2021-07-26] MEDS: SENNA-S TABLET PO SCH (08:44)
[2021-07-26] MEDS: FAMOTIDINE 20 MG/2 ML VIAL IV SCH ×2 (08:44→17:40)
[2021-07-26] MEDS: INSULIN GLARGINE 100 UNITS/ML VIAL SQ SCH ×2 (08:45→21:29)
[2021-07-26] MEDS: ACETAMINOPHEN 325 MG TAB PO PRN ×2 (09:42→18:05)
[2021-07-26] MEDS ORDERED: ACETAMINOPHEN 1000 MG/100 ML IV NR (09:45)
[2021-07-26] MEDS ORDERED: SODIUM CHLORIDE 0.9% 1000ML 1,000 ML IV ONE (10:15)
[2021-07-26] MEDS ORDERED: SODIUM CHLORIDE 0.9% 100 ML ONE (11:06)
[2021-07-26] MEDS: Vancomycin IV 1 GM in SODIUM CHLORIDE 0.9% 250ML 250 ML IV SCH ×2 (11:14→21:29)
[2021-07-26] MEDS: MEROPENEM 1 GM in SODIUM CHLORIDE 0.9% 100 ML IV SCH ×3 (11:14→22:48)
[2021-07-26 12:07] LABS: CLARITY,URINE SL CLOUDY (CLEAR); COLOR,URINE YELLOW (YELLOW); KETONES,URINE NEGATIVE (NEGATIVE); LEUKOCYTE ESTERASE ,URINE NEGATIVE (NEGATIVE); NITRITE,URINE NEGATIVE (NEGATIVE); PROTEIN,URINE DIPSTICK 1+ (NEGATIVE)
[2021-07-26 12:08] LABS: BACTERIA,URINE RARE /HPF; EPITHELIAL CELLS,URINE FEW /LPF; RBC,URINE 0-5 /HPF (0-5); WBC,URINE (MAN) 0-5 /HPF (0-5)
[2021-07-26] MEDS ORDERED: SODIUM CHLORIDE 0.9% 250ML 250 ML ONE (12:59)
[2021-07-26] MEDS: FENTANYL 2000MCG/NS 250 250 ML IV SCH (14:44)
[2021-07-27] VITALS (26 sets, daily range): BP systolic 89–161; BP diastolic 36–71
[2021-07-27] MEDS: INSULIN REGULAR, HUMAN 100 UNIT/1 ML SQ SCH ×4 (00:17→17:43)
[2021-07-27] MEDS: METOCLOPRAMIDE HCL 10 MG/2ML VIAL IV SCH ×4 (00:30→16:39)
[2021-07-27] MEDS: PROPOFOL IV EMULSION 10MG/ML 100 ML IV PRN ×4 (02:10→17:21)
[2021-07-27] MEDS: ACETAMINOPHEN 325 MG TAB PO PRN (02:26)
[2021-07-27] MEDS: MEROPENEM 1 GM in SODIUM CHLORIDE 0.9% 100 ML IV SCH ×3 (05:47→21:38)
[2021-07-27 06:21] LABS: BASOPHILS % 0.2 % (0.0-1.0); EOSINOPHILS # (AUTO) 0.2 (0.0-0.4); EOSINOPHILS % 1.7 % (0.0-6.0); HEMATOCRIT 36.5 % (38.2-49.6); LYMPHOCYTES # (AUTO) 1.4 (1.0-3.2); LYMPHOCYTES % 15.7 % (18.0-39.1); MEAN CORPUSCULAR HEMOGLOBIN 29.8 pg (28-32); MEAN CORPUSCULAR HGB CONC 32.9 g/dL (31-35); MEAN CORPUSCULAR VOLUME 90.6 fL (81-99); MONOCYTES # (AUTO) 0.2 (0.2-0.8); MONOCYTES % 2.3 % (4.4-11.3); NEUTROPHILS # (AUTO) 7.1 (2.1-6.9); NEUTROPHILS % 79.5 % (38.7-80.0); PLATELET COUNT 417 x10e3/uL (140-360); RED BLOOD COUNT 4.03 x10e6/uL (4.3-5.7); RED CELL DISTRIBUTION WIDTH 13.4 % (11.7-14.4)
[2021-07-27 06:48] LABS: ALBUMIN 2.1 g/dL (3.5-5.0); ALBUMIN/GLOBULIN RATIO 0.5 (0.8-2.0); ANION GAP 12.9 mmol/L (8-16); CALCIUM 8.6 mg/dL (8.4-10.2); CREATININE, SERUM 0.54 mg/dL (0.72-1.25); POTASSIUM 3.9 mmol/L (3.5-5.1)
[2021-07-27 09:02] LABS: ABG HCO3 27 mmol/L (22-26); ABG PCO2 36 mmHg (35-45); ABG PH 7.48 (7.35-7.45); ABG PO2 63 mmHg (80-105); ABG TCO2 28
[2021-07-27] MEDS: SENNA-S TABLET PO SCH (10:14)
[2021-07-27] MEDS: FAMOTIDINE 20 MG/2 ML VIAL IV SCH ×2 (10:14→16:39)
[2021-07-27] MEDS: ENOXAPARIN INJ 80 MG/0.8 ML SYR SC SCH ×2 (10:14→20:28)
[2021-07-27] MEDS: INSULIN GLARGINE 100 UNITS/ML VIAL SQ SCH ×2 (10:15→20:28)
[2021-07-27] MEDS ORDERED: IBUPROFEN 800MG/ 200ML 200 ML IV PRN (11:15)
[2021-07-27] MEDS ORDERED: ACETAMINOPHEN 1000 MG/100 ML IV PRN (11:15)
[2021-07-27] MEDS: Vancomycin IV 1.5 GM in SODIUM CHLORIDE 0.9% 250ML 300 ML IV SCH ×2 (12:33→22:44)
[2021-07-27] MEDS: FENTANYL 2000MCG/NS 250 250 ML IV SCH (17:22)
[2021-07-27] MEDS ORDERED: SODIUM CHLORIDE 0.9% 250ML 250 ML ONE (20:51)
[2021-07-27] MEDS ORDERED: SODIUM CHLORIDE 0.9% 1000ML 1,000 ML ONE (20:51)
[2021-07-27] MEDS ORDERED: Vancomycin IV 500 MG ONE (20:52)
[2021-07-27] MEDS ORDERED: Vancomycin IV 1 GM VIAL ONE (20:55)
[2021-07-27] MEDS ORDERED: SODIUM CHLORIDE 0.9% 500ML 500 ML ONE (20:56)
[2021-07-28] VITALS (27 sets, daily range): BP systolic 96–187; BP diastolic 45–75
[2021-07-28] MEDS: METOCLOPRAMIDE HCL 10 MG/2ML VIAL IV SCH ×5 (00:39→23:53)
[2021-07-28] MEDS: INSULIN REGULAR, HUMAN 100 UNIT/1 ML SQ SCH ×5 (00:45→23:58)
[2021-07-28] MEDS: MEROPENEM 1 GM in SODIUM CHLORIDE 0.9% 100 ML IV SCH ×3 (06:06→21:36)
[2021-07-28 06:17] LABS: BASOPHILS % 0.4 % (0.0-1.0); EOSINOPHILS # (AUTO) 0.2 (0.0-0.4); EOSINOPHILS % 1.8 % (0.0-6.0); HEMATOCRIT 33.1 % (38.2-49.6); LYMPHOCYTES # (AUTO) 1.1 (1.0-3.2); LYMPHOCYTES % 12.6 % (18.0-39.1); MEAN CORPUSCULAR HEMOGLOBIN 29.8 pg (28-32); MEAN CORPUSCULAR HGB CONC 33.2 g/dL (31-35); MEAN CORPUSCULAR VOLUME 89.7 fL (81-99); MONOCYTES # (AUTO) 0.3 (0.2-0.8); NEUTROPHILS # (AUTO) 6.9 (2.1-6.9); NEUTROPHILS % 81.5 % (38.7-80.0); PLATELET COUNT 407 x10e3/uL (140-360); RED BLOOD COUNT 3.69 x10e6/uL (4.3-5.7); RED CELL DISTRIBUTION WIDTH 13.6 % (11.7-14.4)
[2021-07-28 06:59] LABS: ALBUMIN 1.8 g/dL (3.5-5.0); ALBUMIN/GLOBULIN RATIO 0.4 (0.8-2.0); ANION GAP 12.7 mmol/L (8-16); CALCIUM 7.9 mg/dL (8.4-10.2); CREATININE, SERUM 0.52 mg/dL (0.72-1.25); POTASSIUM 3.7 mmol/L (3.5-5.1)
[2021-07-28] MEDS: PROPOFOL IV EMULSION 10MG/ML 100 ML IV PRN ×6 (07:30→22:46)
[2021-07-28] MEDS: FAMOTIDINE 20 MG/2 ML VIAL IV SCH ×2 (09:29→18:05)
[2021-07-28] MEDS: SENNA-S TABLET PO SCH (09:29)
[2021-07-28] MEDS: ENOXAPARIN INJ 80 MG/0.8 ML SYR SC SCH ×2 (09:32→21:25)
[2021-07-28] MEDS ORDERED: LORAZEPAM INJ 2 MG/ML VIAL IV ONE (10:25)
[2021-07-28 10:26] LABS: ABG HCO3 27 mmol/L (22-26); ABG PCO2 36 mmHg (35-45); ABG PH 7.49 (7.35-7.45); ABG PO2 54 mmHg (80-105); ABG TCO2 28
[2021-07-28] MEDS: Vancomycin IV 1.5 GM in SODIUM CHLORIDE 0.9% 250ML 300 ML IV SCH ×2 (11:00→23:52)
[2021-07-28] MEDS: NOREPINEPHRINE 8 MG/D5W 250 ML 250 ML IV SCH (11:20)
[2021-07-28] MEDS: DEXAMETHASONE SOD PHOS 10 MG/1 ML VIAL IV SCH (14:27)
[2021-07-28] MEDS: FENTANYL 2000MCG/NS 250 250 ML IV SCH (16:24)
[2021-07-28] MEDS ORDERED: INSULIN GLARGINE 100 UNITS/ML VIAL SQ SCH (21:00)
[2021-07-29] VITALS (26 sets, daily range): BP systolic 98–143; BP diastolic 44–73
[2021-07-29] MEDS: PROPOFOL IV EMULSION 10MG/ML 100 ML IV PRN ×6 (03:58→23:00)
[2021-07-29 05:16] LABS: BASOPHILS % 0.3 % (0.0-1.0); HEMATOCRIT 32.9 % (38.2-49.6); HEMOGLOBIN 10.9 g/dL (14.0-18.0); LYMPHOCYTES # (AUTO) 1.1 (1.0-3.2); LYMPHOCYTES % 15.1 % (18.0-39.1); MEAN CORPUSCULAR HEMOGLOBIN 29.5 pg (28-32); MEAN CORPUSCULAR HGB CONC 33.1 g/dL (31-35); MEAN CORPUSCULAR VOLUME 89.2 fL (81-99); MONOCYTES # (AUTO) 0.2 (0.2-0.8); MONOCYTES % 2.9 % (4.4-11.3); NEUTROPHILS # (AUTO) 5.9 (2.1-6.9); NEUTROPHILS % 80.5 % (38.7-80.0); PLATELET COUNT 452 x10e3/uL (140-360); RED BLOOD COUNT 3.69 x10e6/uL (4.3-5.7); RED CELL DISTRIBUTION WIDTH 13.5 % (11.7-14.4)
[2021-07-29] MEDS: MEROPENEM 1 GM in SODIUM CHLORIDE 0.9% 100 ML IV SCH ×3 (05:25→22:33)
[2021-07-29] MEDS: METOCLOPRAMIDE HCL 10 MG/2ML VIAL IV SCH ×4 (05:25→23:41)
[2021-07-29 05:38] LABS: ALBUMIN 1.9 g/dL (3.5-5.0); ALBUMIN/GLOBULIN RATIO 0.4 (0.8-2.0); CALCIUM 8.5 mg/dL (8.4-10.2); CREATININE, SERUM 0.65 mg/dL (0.72-1.25)
[2021-07-29] MEDS: INSULIN REGULAR, HUMAN 100 UNIT/1 ML SQ SCH ×3 (06:01→18:01)
[2021-07-29] MEDS: SENNA-S TABLET PO SCH (08:14)
[2021-07-29] MEDS: FAMOTIDINE 20 MG/2 ML VIAL IV SCH ×2 (08:14→18:00)
[2021-07-29] MEDS: DEXAMETHASONE SOD PHOS 10 MG/1 ML VIAL IV SCH (08:14)
[2021-07-29] MEDS: ENOXAPARIN INJ 80 MG/0.8 ML SYR SC SCH ×2 (08:14→22:33)
[2021-07-29] MEDS: INSULIN GLARGINE 100 UNITS/ML VIAL SQ SCH ×2 (09:04→21:47)
[2021-07-29] MEDS ORDERED: MAGNESIUM HYDROXIDE 30 ML UDC PO ONE ×2 (09:10→11:25)
[2021-07-29] MEDS ORDERED: BISACODYL 10 MG SUPP PR ONE ×2 (09:10→11:25)
[2021-07-29 09:18] LABS: ABG HCO3 30 mmol/L (22-26); ABG PCO2 49 mmHg (35-45); ABG PH 7.39 (7.35-7.45); ABG PO2 66 mmHg (80-105); ABG TCO2 31
[2021-07-29 11:05] LABS: EOSINOPHILS % (MANUAL) 1 % (0-7); LYMPHOCYTES % (MANUAL) 15 % (19-48); MONOCYTES % (MANUAL) 1 % (3.4-9.0); NEUTROPHILS % (MANUAL) 83 % (40-74); PLATELET ESTIMATE ADEQUATE; PLATELET MORPHOLOGY COMMENT NORMAL; RBC MORPHOLOGY COMMENT NORMAL
[2021-07-29] MEDS: FENTANYL 2000MCG/NS 250 250 ML IV SCH (11:08)
[2021-07-29] MEDS: Vancomycin IV 1.5 GM in SODIUM CHLORIDE 0.9% 250ML 300 ML IV SCH ×2 (11:54→23:41)
[2021-07-29] MEDS: NOREPINEPHRINE 8 MG/D5W 250 ML 250 ML IV SCH (19:48)
[2021-07-30] VITALS (27 sets, daily range): BP systolic 88–156; BP diastolic 44–89
[2021-07-30] MEDS: INSULIN REGULAR, HUMAN 100 UNIT/1 ML SQ SCH ×4 (00:38→17:23)
[2021-07-30] MEDS: PROPOFOL IV EMULSION 10MG/ML 100 ML IV PRN ×9 (03:50→22:35)
[2021-07-30] MEDS: MEROPENEM 1 GM in SODIUM CHLORIDE 0.9% 100 ML IV SCH ×2 (05:16→13:00)
[2021-07-30] MEDS: METOCLOPRAMIDE HCL 10 MG/2ML VIAL IV SCH ×3 (05:16→17:11)
[2021-07-30] MEDS: FENTANYL 2000MCG/NS 250 250 ML IV SCH ×2 (06:11→17:12)
[2021-07-30] MEDS: NOREPINEPHRINE 8 MG/D5W 250 ML 250 ML IV SCH ×2 (06:18→22:40)
[2021-07-30 07:21] LABS: ABG HCO3 37 mmol/L (22-26); ABG PCO2 38 mmHg (35-45); ABG PO2 53 mmHg (80-105); ABG TCO2 38
[2021-07-30 07:39] LABS: BASOPHILS % 0.2 % (0.0-1.0); EOSINOPHILS # (AUTO) 0.2 (0.0-0.4); EOSINOPHILS % 1.5 % (0.0-6.0); HEMATOCRIT 30.5 % (38.2-49.6); HEMOGLOBIN 10.3 g/dL (14.0-18.0); LYMPHOCYTES # (AUTO) 3.1 (1.0-3.2); LYMPHOCYTES % 25.6 % (18.0-39.1); MEAN CORPUSCULAR HEMOGLOBIN 31.1 pg (28-32); MEAN CORPUSCULAR HGB CONC 33.8 g/dL (31-35); MEAN CORPUSCULAR VOLUME 92.1 fL (81-99); MONOCYTES # (AUTO) 0.4 (0.2-0.8); MONOCYTES % 3.6 % (4.4-11.3); PLATELET COUNT 435 x10e3/uL (140-360); RED BLOOD COUNT 3.31 x10e6/uL (4.3-5.7); RED CELL DISTRIBUTION WIDTH 13.9 % (11.7-14.4)
[2021-07-30 08:01] LABS: ALBUMIN 1.8 g/dL (3.5-5.0); ALBUMIN/GLOBULIN RATIO 0.4 (0.8-2.0); ANION GAP 7.8 mmol/L (8-16); CALCIUM 7.8 mg/dL (8.4-10.2); CREATININE, SERUM 0.5 mg/dL (0.72-1.25); POTASSIUM 3.8 mmol/L (3.5-5.1)
[2021-07-30] MEDS: ENOXAPARIN INJ 80 MG/0.8 ML SYR SC SCH ×2 (08:01→21:53)
[2021-07-30] MEDS: SENNA-S TABLET PO SCH (08:01)
[2021-07-30] MEDS: FAMOTIDINE 20 MG/2 ML VIAL IV SCH ×2 (08:01→17:11)
[2021-07-30] MEDS: INSULIN GLARGINE 100 UNITS/ML VIAL SQ SCH ×2 (08:17→21:53)
[2021-07-30] MEDS ORDERED: VECURONIUM BROMIDE FOR INJ 20 MG VIAL IV STA (09:10)
[2021-07-30] MEDS ORDERED: LORAZEPAM INJ 2 MG/ML VIAL IV ONE (09:15)
[2021-07-30] MEDS: ACETAZOLAMIDE SODIUM 500 MG/VIAL IV SCH ×2 (09:22→22:00)
[2021-07-30] MEDS: Vancomycin IV 1.5 GM in SODIUM CHLORIDE 0.9% 250ML 300 ML IV SCH (11:17)
[2021-07-30] MEDS ORDERED: ACETAZOLAMIDE SODIUM 500 MG/VIAL ONE (22:08)
[2021-07-31] VITALS (27 sets, daily range): BP systolic 93–168; BP diastolic 39–67
[2021-07-31] MEDS: METOCLOPRAMIDE HCL 10 MG/2ML VIAL IV SCH ×4 (00:50→17:04)
[2021-07-31] MEDS: ACETAMINOPHEN 325 MG TAB PO PRN ×4 (00:50→21:50)
[2021-07-31] MEDS: INSULIN REGULAR, HUMAN 100 UNIT/1 ML SQ SCH ×4 (00:50→18:01)
[2021-07-31] MEDS: PROPOFOL IV EMULSION 10MG/ML 100 ML IV PRN ×5 (05:24→21:30)
[2021-07-31] MEDS: FENTANYL 2000MCG/NS 250 250 ML IV SCH ×2 (05:25→18:00)
[2021-07-31] MEDS: SENNA-S TABLET PO SCH (07:39)
[2021-07-31] MEDS: ENOXAPARIN INJ 80 MG/0.8 ML SYR SC SCH ×2 (07:39→21:50)
[2021-07-31] MEDS: FAMOTIDINE 20 MG/2 ML VIAL IV SCH ×2 (07:39→17:04)
[2021-07-31 08:01] LABS: BASOPHILS # (AUTO) 0.1 (0.0-0.1); BASOPHILS % 0.5 % (0.0-1.0); EOSINOPHILS # (AUTO) 0.3 (0.0-0.4); EOSINOPHILS % 2.7 % (0.0-6.0); HEMATOCRIT 35.4 % (38.2-49.6); LYMPHOCYTES % 21.1 % (18.0-39.1); MEAN CORPUSCULAR HGB CONC 31.1 g/dL (31-35); MEAN CORPUSCULAR VOLUME 96.5 fL (81-99); MONOCYTES # (AUTO) 0.4 (0.2-0.8); MONOCYTES % 3.8 % (4.4-11.3); NEUTROPHILS # (AUTO) 6.5 (2.1-6.9); PLATELET COUNT 398 x10e3/uL (140-360); RED BLOOD COUNT 3.67 x10e6/uL (4.3-5.7); RED CELL DISTRIBUTION WIDTH 14.3 % (11.7-14.4)
[2021-07-31 08:21] LABS: ALBUMIN 1.9 g/dL (3.5-5.0); ALBUMIN/GLOBULIN RATIO 0.4 (0.8-2.0); CALCIUM 8.2 mg/dL (8.4-10.2); CREATININE, SERUM 0.51 mg/dL (0.72-1.25); POTASSIUM 3.7 mmol/L (3.5-5.1)
[2021-07-31 08:23] LABS: ANION GAP 4.7 mmol/L (8-16)
[2021-07-31] MEDS: INSULIN GLARGINE 100 UNITS/ML VIAL SQ SCH ×3 (08:31→22:30)
[2021-07-31 08:52] LABS: ABG HCO3 37 mmol/L (22-26); ABG PCO2 65 mmHg (35-45); ABG PH 7.36 (7.35-7.45); ABG PO2 101 mmHg (80-105); ABG TCO2 39
[2021-07-31 13:56] LABS: ABG HCO3 36 mmol/L (22-26); ABG PCO2 57 mmHg (35-45); ABG PH 7.41 (7.35-7.45); ABG PO2 88 mmHg (80-105); ABG TCO2 38
[2021-07-31] MEDS ORDERED: DEXMEDETOMIDINE 400MCG/NS100ML 100 ML IV PRN (16:45)
[2021-07-31] MEDS ORDERED: HYDROCODONE/APAP 7.5MG-325MG 1 EA TAB PO PRN (16:45)
[2021-08-01] VITALS (25 sets, daily range): BP systolic 88–139; BP diastolic 45–74
[2021-08-01] MEDS: METOCLOPRAMIDE HCL 10 MG/2ML VIAL IV SCH ×4 (01:00→17:30)
[2021-08-01] MEDS: PROPOFOL IV EMULSION 10MG/ML 100 ML IV PRN ×6 (03:30→22:35)
[2021-08-01] MEDS ORDERED: ACETAMINOPHEN 1000 MG/100 ML IV STA (04:03)
[2021-08-01] MEDS: INSULIN REGULAR, HUMAN 100 UNIT/1 ML SQ SCH ×4 (06:00→17:59)
[2021-08-01 07:00] LABS: BASOPHILS % 0.2 % (0.0-1.0); EOSINOPHILS # (AUTO) 0.3 (0.0-0.4); EOSINOPHILS % 3.3 % (0.0-6.0); HEMATOCRIT 33.6 % (38.2-49.6); HEMOGLOBIN 10.8 g/dL (14.0-18.0); LYMPHOCYTES # (AUTO) 1.9 (1.0-3.2); MEAN CORPUSCULAR HEMOGLOBIN 30.2 pg (28-32); MEAN CORPUSCULAR HGB CONC 32.1 g/dL (31-35); MEAN CORPUSCULAR VOLUME 93.9 fL (81-99); MONOCYTES # (AUTO) 0.3 (0.2-0.8); MONOCYTES % 3.6 % (4.4-11.3); NEUTROPHILS # (AUTO) 6.4 (2.1-6.9); NEUTROPHILS % 70.2 % (38.7-80.0); PLATELET COUNT 347 x10e3/uL (140-360); RED BLOOD COUNT 3.58 x10e6/uL (4.3-5.7); RED CELL DISTRIBUTION WIDTH 14.2 % (11.7-14.4)
[2021-08-01 07:27] LABS: ALBUMIN 1.8 g/dL (3.5-5.0); ALBUMIN/GLOBULIN RATIO 0.4 (0.8-2.0); CALCIUM 8.4 mg/dL (8.4-10.2); CREATININE, SERUM 0.45 mg/dL (0.72-1.25)
[2021-08-01 07:36] LABS: POTASSIUM 3.9 mmol/L (3.5-5.1)
[2021-08-01] MEDS ORDERED: ACETAMINOPHEN 1000 MG/100 ML 100 ML IV ONE ×2 (07:44→21:40)
[2021-08-01] MEDS ORDERED: ROCURONIUM 1250MG/NS 250 250 ML IV PRN (07:45)
[2021-08-01 07:51] LABS: ANION GAP 8.9 mmol/L (8-16)
[2021-08-01] MEDS: SENNA-S TABLET PO SCH (07:51)
[2021-08-01] MEDS: FAMOTIDINE 20 MG/2 ML VIAL IV SCH ×2 (07:51→17:30)
[2021-08-01] MEDS: FENTANYL 2000MCG/NS 250 250 ML IV SCH ×2 (07:55→20:35)
[2021-08-01] MEDS: ENOXAPARIN INJ 80 MG/0.8 ML SYR SC SCH ×2 (09:53→20:30)
[2021-08-01 09:54] LABS: ABG PH 7.44 (7.35-7.45)
[2021-08-01 09:55] LABS: ABG HCO3 37 mmol/L (22-26); ABG PCO2 54 mmHg (35-45); ABG PO2 70 mmHg (80-105); ABG TCO2 39
[2021-08-01] MEDS: INSULIN GLARGINE 100 UNITS/ML VIAL SQ SCH (10:25)
[2021-08-01] MEDS: NOREPINEPHRINE 8 MG/D5W 250 ML 250 ML IV SCH (11:00)
[2021-08-02] VITALS (24 sets, daily range): BP systolic 84–138; BP diastolic 41–68
[2021-08-02] MEDS ORDERED: ACETAMINOPHEN 1000 MG/100 ML IV STA (00:13)
[2021-08-02] MEDS: METOCLOPRAMIDE HCL 10 MG/2ML VIAL IV SCH ×4 (00:29→17:29)
[2021-08-02] MEDS: INSULIN REGULAR, HUMAN 100 UNIT/1 ML SQ SCH ×4 (01:03→17:29)
[2021-08-02] MEDS: PROPOFOL IV EMULSION 10MG/ML 100 ML IV PRN ×6 (04:20→14:51)
[2021-08-02] MEDS: ACETAMINOPHEN 325 MG/10 ML UDC NG PRN ×3 (05:30→17:45)
[2021-08-02 05:53] LABS: BASOPHILS % 0.2 % (0.0-1.0); EOSINOPHILS # (AUTO) 0.3 (0.0-0.4); EOSINOPHILS % 3.6 % (0.0-6.0); HEMATOCRIT 33.6 % (38.2-49.6); HEMOGLOBIN 10.8 g/dL (14.0-18.0); LYMPHOCYTES # (AUTO) 1.5 (1.0-3.2); LYMPHOCYTES % 15.6 % (18.0-39.1); MEAN CORPUSCULAR HEMOGLOBIN 29.8 pg (28-32); MEAN CORPUSCULAR HGB CONC 32.1 g/dL (31-35); MEAN CORPUSCULAR VOLUME 92.6 fL (81-99); MONOCYTES # (AUTO) 0.3 (0.2-0.8); MONOCYTES % 2.7 % (4.4-11.3); NEUTROPHILS # (AUTO) 7.2 (2.1-6.9); NEUTROPHILS % 77.1 % (38.7-80.0); PLATELET COUNT 308 x10e3/uL (140-360); RED BLOOD COUNT 3.63 x10e6/uL (4.3-5.7); RED CELL DISTRIBUTION WIDTH 14.2 % (11.7-14.4)
[2021-08-02 06:25] LABS: ALBUMIN 1.8 g/dL (3.5-5.0); ALBUMIN/GLOBULIN RATIO 0.3 (0.8-2.0); ANION GAP 9.2 mmol/L (8-16); CALCIUM 8.5 mg/dL (8.4-10.2); CREATININE, SERUM 0.43 mg/dL (0.72-1.25); POTASSIUM 4.2 mmol/L (3.5-5.1)
[2021-08-02 08:38] LABS: ABG PCO2 87 mmHg (35-45); ABG PH 7.28 (7.35-7.45); ABG PO2 88 mmHg (80-105)
[2021-08-02 08:39] LABS: ABG HCO3 41 mmol/L (22-26); ABG TCO2 43
[2021-08-02] MEDS: ENOXAPARIN INJ 80 MG/0.8 ML SYR SC SCH ×2 (09:37→21:00)
[2021-08-02] MEDS: SENNA-S TABLET PO SCH (09:37)
[2021-08-02] MEDS: FAMOTIDINE 20 MG/2 ML VIAL IV SCH ×2 (09:37→17:29)
[2021-08-02] MEDS: FENTANYL 2000MCG/NS 250 250 ML IV SCH ×2 (09:38→21:50)
[2021-08-02] MEDS: INSULIN GLARGINE 100 UNITS/ML VIAL SQ SCH ×2 (09:38→21:00)
[2021-08-02] MEDS: NOREPINEPHRINE 8 MG/D5W 250 ML 250 ML IV SCH ×2 (09:55→21:50)
[2021-08-02] MEDS ORDERED: ACETAZOLAMIDE SODIUM 500 MG/VIAL IV ONE (13:30)
[2021-08-02] MEDS ORDERED: LORAZEPAM INJ 2 MG/ML VIAL IV ONE (13:30)
[2021-08-02] MEDS ORDERED: MEROPENEM 1 GM in SODIUM CHLORIDE 0.9% 100 ML IV SCH (14:00)
[2021-08-02] MEDS ORDERED: Vancomycin IV 1 GM in SODIUM CHLORIDE 0.9% 250ML 250 ML IV ONE (17:45)
[2021-08-02] MEDS ORDERED: ALBUMIN 25% 25GM 100ML 0.25 GM/ML BTL IV ONE (17:45)
[2021-08-02] MEDS ORDERED: SODIUM BICARBONATE 8.4% INJ 50 ML SYR IV STA (17:56)
[2021-08-02] MEDS ORDERED: VECURONIUM BROMIDE FOR INJ 20 MG VIAL IV STA (17:56)
[2021-08-02] MEDS ORDERED: VECURONIUM BROMIDE FOR INJ 20 MG VIAL ONE (18:07)
[2021-08-02 18:21] LABS: ABG PCO2 > 130 mmHg (35-45); ABG PH 6.86 (7.35-7.45); ABG PO2 66 mmHg (80-105)
[2021-08-02] MEDS ORDERED: ROCURONIUM 1250MG/NS 250 250 ML IV PRN (18:30)
[2021-08-02] MEDS: MEROPENEM 1 GM in SODIUM CHLORIDE 0.9% 100 ML IV SCH (18:34)
[2021-08-02] MEDS: MIDAZOLAM HCL 5MG/ML 10ML VIAL 100 ML IV PRN (19:06)
[2021-08-02] MEDS ORDERED: MIDAZOLAM HCL 5MG/ML 10ML VIAL 100 ML IV ONE (19:08)
[2021-08-02 20:27] LABS: ABG PCO2 > 130 mmHg (35-45); ABG PH 7.12 (7.35-7.45); ABG PO2 93 mmHg (80-105)
[2021-08-02] MEDS: ROCURONIUM BROMIDE 1,250 MG in SODIUM CHLORIDE 0.9% 250ML 125 ML IV PRN (21:25)
[2021-08-02 21:30] LABS: ABG PH 7.17 (7.35-7.45)
[2021-08-02 21:31] LABS: ABG HCO3 40 mmol/L (22-26); ABG PCO2 109 mmHg (35-45); ABG PO2 84 mmHg (80-105); ABG TCO2 43
[2021-08-03] VITALS (25 sets, daily range): BP systolic 88–164; BP diastolic 39–67
[2021-08-03] MEDS: MEROPENEM 1 GM in SODIUM CHLORIDE 0.9% 100 ML IV SCH ×4 (00:15→22:31)
[2021-08-03] MEDS: INSULIN REGULAR, HUMAN 100 UNIT/1 ML SQ SCH ×4 (00:20→17:43)
[2021-08-03] MEDS: METOCLOPRAMIDE HCL 10 MG/2ML VIAL IV SCH ×5 (00:25→23:57)
[2021-08-03] MEDS: ACETAMINOPHEN 325 MG TAB PO PRN ×2 (00:30→06:15)
[2021-08-03] MEDS: MIDAZOLAM HCL 5MG/ML 10ML VIAL 100 ML IV PRN ×3 (03:00→18:31)
[2021-08-03 03:37] LABS: ABG HCO3 43 mmol/L (22-26); ABG PCO2 122 mmHg (35-45); ABG PH 7.16 (7.35-7.45); ABG PO2 74 mmHg (80-105); ABG TCO2 47
[2021-08-03] MEDS: FENTANYL 2000MCG/NS 250 250 ML IV SCH ×3 (06:19→23:29)
[2021-08-03 06:32] LABS: BASOPHILS % 0.2 % (0.0-1.0); EOSINOPHILS # (AUTO) 0.1 (0.0-0.4); EOSINOPHILS % 1.3 % (0.0-6.0); HEMATOCRIT 34.3 % (38.2-49.6); LYMPHOCYTES # (AUTO) 0.8 (1.0-3.2); LYMPHOCYTES % 8.6 % (18.0-39.1); MEAN CORPUSCULAR HEMOGLOBIN 29.4 pg (28-32); MEAN CORPUSCULAR HGB CONC 29.2 g/dL (31-35); MEAN CORPUSCULAR VOLUME 100.9 fL (81-99); MONOCYTES # (AUTO) 0.3 (0.2-0.8); MONOCYTES % 3.3 % (4.4-11.3); NEUTROPHILS # (AUTO) 7.8 (2.1-6.9); NEUTROPHILS % 85.6 % (38.7-80.0); PLATELET COUNT 242 x10e3/uL (140-360); RED CELL DISTRIBUTION WIDTH 14.1 % (11.7-14.4)
[2021-08-03 06:40] LABS: INR 1.06; PROTHROMBIN TIME 14.6 seconds (11.9-14.5)
[2021-08-03 06:41] LABS: PARTIAL THROMBOPLASTIN TIME 52.6 seconds (23.8-35.5)
[2021-08-03 06:48] LABS: ALBUMIN 2.7 g/dL (3.5-5.0); ALBUMIN/GLOBULIN RATIO 0.6 (0.8-2.0); CALCIUM 8.8 mg/dL (8.4-10.2); CREATININE, SERUM 0.53 mg/dL (0.72-1.25); POTASSIUM 4.3 mmol/L (3.5-5.1)
[2021-08-03 06:52] LABS: ANION GAP 5.3 mmol/L (8-16)
[2021-08-03 09:08] LABS: ABG PH 7.22 (7.35-7.45)
[2021-08-03 09:09] LABS: ABG HCO3 42 mmol/L (22-26); ABG PCO2 104 mmHg (35-45); ABG PO2 86 mmHg (80-105); ABG TCO2 45
[2021-08-03] MEDS: FAMOTIDINE 20 MG/2 ML VIAL IV SCH ×2 (09:55→17:43)
[2021-08-03] MEDS: Vancomycin IV 1 GM in SODIUM CHLORIDE 0.9% 250ML 250 ML IV SCH ×2 (09:55→20:53)
[2021-08-03] MEDS: ENOXAPARIN INJ 80 MG/0.8 ML SYR SC SCH ×2 (09:55→21:40)
[2021-08-03] MEDS: SENNA-S TABLET PO SCH (09:55)
[2021-08-03] MEDS: INSULIN GLARGINE 100 UNITS/ML VIAL SQ SCH ×2 (09:56→21:00)
[2021-08-03 11:48] LABS: ABG PH 7.25 (7.35-7.45)
[2021-08-03 11:49] LABS: ABG HCO3 43 mmol/L (22-26); ABG PCO2 99 mmHg (35-45); ABG PO2 82 mmHg (80-105); ABG TCO2 46
[2021-08-03] MEDS: DEXTROSE 50% SYRINGE 50 ML IV PRN (11:50)
[2021-08-03] MEDS: ACETAMINOPHEN 1000 MG/100 ML IV SCH ×3 (12:09→23:58)
[2021-08-03] MEDS ORDERED: SODIUM CHLORIDE 0.9% 1000ML 1,000 ML ONE (12:57)
[2021-08-03] MEDS ORDERED: LACTULOSE SYRUP 20 GM/30 ML UDC PO SCH (14:00)
[2021-08-03] MEDS: DEXAMETHASONE SOD PHOS 10 MG/1 ML VIAL IV SCH (14:18)
[2021-08-03] MEDS: NOREPINEPHRINE 8 MG/D5W 250 ML 250 ML IV SCH (15:34)
[2021-08-03] MEDS: LACTULOSE SYRUP 20 GM/30 ML UDC PO SCH (21:39)
[2021-08-04] VITALS (26 sets, daily range): BP systolic 100–142; BP diastolic 48–70
[2021-08-04] MEDS: INSULIN REGULAR, HUMAN 100 UNIT/1 ML SQ SCH ×4 (00:20→16:28)
[2021-08-04] MEDS: NOREPINEPHRINE 8 MG/D5W 250 ML 250 ML IV SCH ×2 (03:13→07:21)
[2021-08-04] MEDS: MIDAZOLAM HCL 5MG/ML 10ML VIAL 100 ML IV PRN ×3 (05:01→21:18)
[2021-08-04 05:57] LABS: BASOPHILS % 0.3 % (0.0-1.0); EOSINOPHILS % 0.2 % (0.0-6.0); HEMOGLOBIN 9.4 g/dL (14.0-18.0); LYMPHOCYTES # (AUTO) 0.9 (1.0-3.2); LYMPHOCYTES % 13.8 % (18.0-39.1); MEAN CORPUSCULAR HEMOGLOBIN 29.3 pg (28-32); MEAN CORPUSCULAR HGB CONC 30.3 g/dL (31-35); MEAN CORPUSCULAR VOLUME 96.6 fL (81-99); MONOCYTES # (AUTO) 0.2 (0.2-0.8); MONOCYTES % 3.2 % (4.4-11.3); NEUTROPHILS % 81.1 % (38.7-80.0); PLATELET COUNT 249 x10e3/uL (140-360); RED BLOOD COUNT 3.21 x10e6/uL (4.3-5.7); RED CELL DISTRIBUTION WIDTH 13.8 % (11.7-14.4)
[2021-08-04] MEDS: ACETAMINOPHEN 1000 MG/100 ML IV SCH (06:00)
[2021-08-04] MEDS: MEROPENEM 1 GM in SODIUM CHLORIDE 0.9% 100 ML IV SCH (06:23)
[2021-08-04] MEDS: METOCLOPRAMIDE HCL 10 MG/2ML VIAL IV SCH ×3 (06:23→16:22)
[2021-08-04 06:24] LABS: ALBUMIN 2.4 g/dL (3.5-5.0); ALBUMIN/GLOBULIN RATIO 0.5 (0.8-2.0); CALCIUM 8.9 mg/dL (8.4-10.2); CREATININE, SERUM 0.53 mg/dL (0.72-1.25)
[2021-08-04 06:42] LABS: ANION GAP 13.2 mmol/L (8-16); POTASSIUM 4.2 mmol/L (3.5-5.1)
[2021-08-04 06:49] LABS: ABG HCO3 43 mmol/L (22-26); ABG PCO2 85 mmHg (35-45); ABG PH 7.31 (7.35-7.45); ABG PO2 134 mmHg (80-105); ABG TCO2 46
[2021-08-04] MEDS: ROCURONIUM BROMIDE 1,250 MG in SODIUM CHLORIDE 0.9% 250ML 125 ML IV PRN (07:24)
[2021-08-04] MEDS: Vancomycin IV 1 GM in SODIUM CHLORIDE 0.9% 250ML 250 ML IV SCH (07:34)
[2021-08-04] MEDS: FENTANYL 2000MCG/NS 250 250 ML IV SCH ×2 (08:16→16:24)
[2021-08-04] MEDS: DEXAMETHASONE SOD PHOS 10 MG/1 ML VIAL IV SCH (08:25)
[2021-08-04] MEDS: LACTULOSE SYRUP 20 GM/30 ML UDC PO SCH ×3 (08:25→21:20)
[2021-08-04] MEDS: SENNA-S TABLET PO SCH (08:25)
[2021-08-04] MEDS: FAMOTIDINE 20 MG/2 ML VIAL IV SCH ×2 (08:25→16:22)
[2021-08-04] MEDS: ENOXAPARIN INJ 80 MG/0.8 ML SYR SC SCH ×2 (08:26→21:20)
[2021-08-04] MEDS: INSULIN GLARGINE 100 UNITS/ML VIAL SQ SCH ×2 (08:27→21:00)
[2021-08-04] MEDS: CEFEPIME 1 GM in SODIUM CHLORIDE 0.9% 50ML 50 ML IV SCH ×2 (13:01→21:20)
[2021-08-05] VITALS (26 sets, daily range): BP systolic 92–175; BP diastolic 42–76
[2021-08-05] MEDS: INSULIN REGULAR, HUMAN 100 UNIT/1 ML SQ SCH ×4 (00:39→17:10)
[2021-08-05] MEDS: METOCLOPRAMIDE HCL 10 MG/2ML VIAL IV SCH ×4 (00:39→17:02)
[2021-08-05] MEDS: FENTANYL 2000MCG/NS 250 250 ML IV SCH ×3 (02:34→19:31)
[2021-08-05 05:56] LABS: BASOPHILS % 0.5 % (0.0-1.0); EOSINOPHILS # (AUTO) 0.1 (0.0-0.4); EOSINOPHILS % 1.2 % (0.0-6.0); HEMATOCRIT 29.6 % (38.2-49.6); HEMOGLOBIN 8.9 g/dL (14.0-18.0); LYMPHOCYTES # (AUTO) 1.9 (1.0-3.2); LYMPHOCYTES % 28.3 % (18.0-39.1); MEAN CORPUSCULAR HEMOGLOBIN 29.9 pg (28-32); MEAN CORPUSCULAR HGB CONC 30.1 g/dL (31-35); MEAN CORPUSCULAR VOLUME 99.3 fL (81-99); MONOCYTES # (AUTO) 0.6 (0.2-0.8); MONOCYTES % 8.6 % (4.4-11.3); NEUTROPHILS % 60.8 % (38.7-80.0); PLATELET COUNT 256 x10e3/uL (140-360); RED BLOOD COUNT 2.98 x10e6/uL (4.3-5.7); RED CELL DISTRIBUTION WIDTH 14.2 % (11.7-14.4)
[2021-08-05 06:12] LABS: ALBUMIN 2.1 g/dL (3.5-5.0); ALBUMIN/GLOBULIN RATIO 0.5 (0.8-2.0); CALCIUM 8.6 mg/dL (8.4-10.2); POTASSIUM 3.6 mmol/L (3.5-5.1)
[2021-08-05] MEDS: CEFEPIME 1 GM in SODIUM CHLORIDE 0.9% 50ML 50 ML IV SCH ×3 (06:25→21:22)
[2021-08-05] MEDS: MIDAZOLAM HCL 5MG/ML 10ML VIAL 100 ML IV PRN ×3 (06:40→19:31)
[2021-08-05 06:42] LABS: CREATININE, SERUM 0.48 mg/dL (0.72-1.25)
[2021-08-05 06:47] LABS: ANION GAP 10.6 mmol/L (8-16)
[2021-08-05] MEDS: DEXAMETHASONE SOD PHOS 10 MG/1 ML VIAL IV SCH (08:38)
[2021-08-05] MEDS: LACTULOSE SYRUP 20 GM/30 ML UDC PO SCH (08:41)
[2021-08-05] MEDS: SENNA-S TABLET PO SCH (08:41)
[2021-08-05] MEDS: FAMOTIDINE 20 MG/2 ML VIAL IV SCH ×2 (08:41→17:02)
[2021-08-05] MEDS: ENOXAPARIN INJ 80 MG/0.8 ML SYR SC SCH ×2 (08:41→21:20)
[2021-08-05] MEDS: INSULIN GLARGINE 100 UNITS/ML VIAL SQ SCH ×2 (08:57→21:21)
[2021-08-05 08:59] LABS: ABG PCO2 > 130 mmHg (35-45); ABG PH 7.15 (7.35-7.45); ABG PO2 92 mmHg (80-105)
[2021-08-05 15:57] LABS: ABG HCO3 46 mmol/L (22-26); ABG PCO2 84 mmHg (35-45); ABG PH 7.35 (7.35-7.45); ABG PO2 82 mmHg (80-105); ABG TCO2 48
[2021-08-05] MEDS: ROCURONIUM BROMIDE 1,250 MG in SODIUM CHLORIDE 0.9% 250ML 125 ML IV PRN (19:31)
[2021-08-06] VITALS (29 sets, daily range): BP systolic 80–178; BP diastolic 47–82
[2021-08-06] MEDS: METOCLOPRAMIDE HCL 10 MG/2ML VIAL IV SCH ×4 (00:11→17:05)
[2021-08-06] MEDS: INSULIN REGULAR, HUMAN 100 UNIT/1 ML SQ SCH ×4 (00:14→17:08)
[2021-08-06] MEDS: MIDAZOLAM HCL 5MG/ML 10ML VIAL 100 ML IV PRN ×5 (01:00→23:21)
[2021-08-06] MEDS: FENTANYL 2000MCG/NS 250 250 ML IV SCH ×3 (04:07→18:03)
[2021-08-06] MEDS: CEFEPIME 1 GM in SODIUM CHLORIDE 0.9% 50ML 50 ML IV SCH ×3 (05:19→20:46)
[2021-08-06 05:37] LABS: BASOPHILS % 0.2 % (0.0-1.0); EOSINOPHILS # (AUTO) 0.2 (0.0-0.4); EOSINOPHILS % 2.5 % (0.0-6.0); HEMATOCRIT 30.6 % (38.2-49.6); HEMOGLOBIN 9.4 g/dL (14.0-18.0); LYMPHOCYTES # (AUTO) 2.3 (1.0-3.2); MEAN CORPUSCULAR HEMOGLOBIN 29.5 pg (28-32); MEAN CORPUSCULAR HGB CONC 30.7 g/dL (31-35); MEAN CORPUSCULAR VOLUME 95.9 fL (81-99); MONOCYTES # (AUTO) 0.8 (0.2-0.8); MONOCYTES % 9.8 % (4.4-11.3); NEUTROPHILS % 59.9 % (38.7-80.0); PLATELET COUNT 278 x10e3/uL (140-360); RED BLOOD COUNT 3.19 x10e6/uL (4.3-5.7); RED CELL DISTRIBUTION WIDTH 14.3 % (11.7-14.4)
[2021-08-06 06:08] LABS: ALBUMIN 2.2 g/dL (3.5-5.0); ALBUMIN/GLOBULIN RATIO 0.5 (0.8-2.0); CALCIUM 8.6 mg/dL (8.4-10.2); POTASSIUM 3.5 mmol/L (3.5-5.1)
[2021-08-06 06:30] LABS: ANION GAP 11.5 mmol/L (8-16); CREATININE, SERUM 0.46 mg/dL (0.72-1.25)
[2021-08-06] MEDS: DEXAMETHASONE SOD PHOS 10 MG/1 ML VIAL IV SCH (08:35)
[2021-08-06] MEDS: FAMOTIDINE 20 MG/2 ML VIAL IV SCH ×2 (08:35→17:05)
[2021-08-06] MEDS: INSULIN GLARGINE 100 UNITS/ML VIAL SQ SCH ×2 (08:36→21:00)
[2021-08-06] MEDS: SENNA-S TABLET PO SCH (08:36)
[2021-08-06] MEDS: ENOXAPARIN INJ 80 MG/0.8 ML SYR SC SCH ×2 (08:36→20:46)
[2021-08-06 09:40] LABS: ABG PH 7.28 (7.35-7.45)
[2021-08-06 09:41] LABS: ABG HCO3 46 mmol/L (22-26); ABG PCO2 98 mmHg (35-45); ABG PO2 87 mmHg (80-105); ABG TCO2 48
[2021-08-06] MEDS: NOREPINEPHRINE 8 MG/D5W 250 ML 250 ML IV SCH (19:45)
[2021-08-06 22:43] LABS: ABG HCO3 45 mmol/L (22-26); ABG PCO2 58 mmHg (35-45); ABG PO2 54 mmHg (80-105); ABG TCO2 47
[2021-08-07] VITALS (27 sets, daily range): BP systolic 97–222; BP diastolic 43–73
[2021-08-07] MEDS: METOCLOPRAMIDE HCL 10 MG/2ML VIAL IV SCH ×4 (00:34→18:05)
[2021-08-07] MEDS: INSULIN REGULAR, HUMAN 100 UNIT/1 ML SQ SCH ×4 (00:35→18:05)
[2021-08-07 05:11] LABS: BASOPHILS % 0.5 % (0.0-1.0); EOSINOPHILS # (AUTO) 0.3 (0.0-0.4); EOSINOPHILS % 3.4 % (0.0-6.0); HEMATOCRIT 27.1 % (38.2-49.6); HEMOGLOBIN 8.3 g/dL (14.0-18.0); LYMPHOCYTES # (AUTO) 2.4 (1.0-3.2); MEAN CORPUSCULAR HEMOGLOBIN 29.3 pg (28-32); MEAN CORPUSCULAR HGB CONC 30.6 g/dL (31-35); MEAN CORPUSCULAR VOLUME 95.8 fL (81-99); MONOCYTES # (AUTO) 0.8 (0.2-0.8); MONOCYTES % 9.5 % (4.4-11.3); NEUTROPHILS # (AUTO) 4.4 (2.1-6.9); NEUTROPHILS % 55.2 % (38.7-80.0); PLATELET COUNT 314 x10e3/uL (140-360); RED BLOOD COUNT 2.83 x10e6/uL (4.3-5.7); RED CELL DISTRIBUTION WIDTH 14.4 % (11.7-14.4)
[2021-08-07] MEDS: CEFEPIME 1 GM in SODIUM CHLORIDE 0.9% 50ML 50 ML IV SCH ×3 (05:40→22:45)
[2021-08-07 05:44] LABS: ALBUMIN 2.1 g/dL (3.5-5.0); ALBUMIN/GLOBULIN RATIO 0.5 (0.8-2.0); ANION GAP 9.8 mmol/L (8-16); CALCIUM 8.1 mg/dL (8.4-10.2); CREATININE, SERUM 0.5 mg/dL (0.72-1.25); POTASSIUM 3.8 mmol/L (3.5-5.1)
[2021-08-07] MEDS: FENTANYL 2000MCG/NS 250 250 ML IV SCH (08:24)
[2021-08-07] MEDS: FAMOTIDINE 20 MG/2 ML VIAL IV SCH ×2 (08:31→18:05)
[2021-08-07] MEDS: DEXAMETHASONE SOD PHOS 10 MG/1 ML VIAL IV SCH (08:31)
[2021-08-07] MEDS: ENOXAPARIN INJ 80 MG/0.8 ML SYR SC SCH ×2 (08:32→22:00)
[2021-08-07] MEDS: INSULIN GLARGINE 100 UNITS/ML VIAL SQ SCH ×2 (08:33→22:00)
[2021-08-07 08:34] LABS: ABG PCO2 57 mmHg (35-45); ABG PH 7.48 (7.35-7.45)
[2021-08-07] MEDS: SENNA-S TABLET PO SCH (08:34)
[2021-08-07 08:35] LABS: ABG HCO3 42 mmol/L (22-26); ABG PO2 143 mmHg (80-105); ABG TCO2 44
[2021-08-07] MEDS: MIDAZOLAM HCL 5MG/ML 10ML VIAL 100 ML IV PRN ×2 (10:20→18:39)
[2021-08-07] MEDS ORDERED: PROPOFOL IV EMULSION 10MG/ML 100 ML ONE (10:49)
[2021-08-07] MEDS: NOREPINEPHRINE 8 MG/D5W 250 ML 250 ML IV SCH (13:52)
[2021-08-07] MEDS: PROPOFOL IV EMULSION 10MG/ML 100 ML IV PRN (18:37)
[2021-08-08] VITALS (26 sets, daily range): BP systolic 90–172; BP diastolic 41–82
[2021-08-08] MEDS: MIDAZOLAM HCL 5MG/ML 10ML VIAL 100 ML IV PRN ×2 (00:05→04:57)
[2021-08-08] MEDS: INSULIN REGULAR, HUMAN 100 UNIT/1 ML SQ SCH ×4 (00:05→17:20)
[2021-08-08] MEDS: METOCLOPRAMIDE HCL 10 MG/2ML VIAL IV SCH ×5 (00:05→23:48)
[2021-08-08] MEDS: FENTANYL 2000MCG/NS 250 250 ML IV SCH ×3 (02:50→22:25)
[2021-08-08 05:01] LABS: BASOPHILS % 0.4 % (0.0-1.0); EOSINOPHILS # (AUTO) 0.3 (0.0-0.4); EOSINOPHILS % 3.1 % (0.0-6.0); HEMATOCRIT 27.6 % (38.2-49.6); HEMOGLOBIN 8.8 g/dL (14.0-18.0); LYMPHOCYTES # (AUTO) 2.4 (1.0-3.2); LYMPHOCYTES % 28.7 % (18.0-39.1); MEAN CORPUSCULAR HEMOGLOBIN 29.5 pg (28-32); MEAN CORPUSCULAR HGB CONC 31.9 g/dL (31-35); MEAN CORPUSCULAR VOLUME 92.6 fL (81-99); MONOCYTES # (AUTO) 0.8 (0.2-0.8); MONOCYTES % 9.2 % (4.4-11.3); NEUTROPHILS # (AUTO) 4.8 (2.1-6.9); NEUTROPHILS % 56.9 % (38.7-80.0); PLATELET COUNT 317 x10e3/uL (140-360); RED BLOOD COUNT 2.98 x10e6/uL (4.3-5.7); RED CELL DISTRIBUTION WIDTH 14.1 % (11.7-14.4)
[2021-08-08 05:58] LABS: ALBUMIN 2.1 g/dL (3.5-5.0); ALBUMIN/GLOBULIN RATIO 0.5 (0.8-2.0); ANION GAP 10.1 mmol/L (8-16); CALCIUM 8.4 mg/dL (8.4-10.2); CREATININE, SERUM 0.49 mg/dL (0.72-1.25); POTASSIUM 4.1 mmol/L (3.5-5.1)
[2021-08-08] MEDS: CEFEPIME 1 GM in SODIUM CHLORIDE 0.9% 50ML 50 ML IV SCH ×3 (06:33→20:50)
[2021-08-08] MEDS: DEXAMETHASONE SOD PHOS 10 MG/1 ML VIAL IV SCH (08:17)
[2021-08-08] MEDS: FAMOTIDINE 20 MG/2 ML VIAL IV SCH ×2 (08:18→17:17)
[2021-08-08] MEDS: SENNA-S TABLET PO SCH (08:18)
[2021-08-08] MEDS: ENOXAPARIN INJ 80 MG/0.8 ML SYR SC SCH ×2 (08:18→20:50)
[2021-08-08] MEDS: INSULIN GLARGINE 100 UNITS/ML VIAL SQ SCH ×2 (08:19→21:10)
[2021-08-08 09:49] LABS: ABG HCO3 38 mmol/L (22-26); ABG PCO2 50 mmHg (35-45); ABG PH 7.49 (7.35-7.45); ABG PO2 78 mmHg (80-105); ABG TCO2 39
[2021-08-08] MEDS: PROPOFOL IV EMULSION 10MG/ML 100 ML IV PRN ×3 (10:13→23:49)
[2021-08-08] MEDS: EYE LUBRICANT OPTH OINT 3.5GM TUBE OP SCH ×2 (11:30→17:17)
[2021-08-08] MEDS ORDERED: SODIUM CHLORIDE 0.9% 50ML 50 ML ONE (13:23)
[2021-08-08] MEDS: NOREPINEPHRINE 8 MG/D5W 250 ML 250 ML IV SCH (13:30)
[2021-08-09] VITALS (26 sets, daily range): BP systolic 95–179; BP diastolic 40–67
[2021-08-09] MEDS: INSULIN REGULAR, HUMAN 100 UNIT/1 ML SQ SCH ×4 (00:19→17:24)
[2021-08-09] MEDS: PROPOFOL IV EMULSION 10MG/ML 100 ML IV PRN ×5 (01:13→22:00)
[2021-08-09] MEDS: FENTANYL 2000MCG/NS 250 250 ML IV SCH ×3 (01:37→19:19)
[2021-08-09] MEDS: ACETAMINOPHEN 325 MG/10 ML UDC NG PRN (04:01)
[2021-08-09] MEDS: CEFEPIME 1 GM in SODIUM CHLORIDE 0.9% 50ML 50 ML IV SCH ×3 (05:45→21:26)
[2021-08-09] MEDS: METOCLOPRAMIDE HCL 10 MG/2ML VIAL IV SCH ×3 (05:46→17:20)
[2021-08-09 06:22] LABS: BASOPHILS # (AUTO) 0.1 (0.0-0.1); BASOPHILS % 0.7 % (0.0-1.0); EOSINOPHILS # (AUTO) 0.4 (0.0-0.4); EOSINOPHILS % 4.1 % (0.0-6.0); HEMOGLOBIN 10.1 g/dL (14.0-18.0); LYMPHOCYTES # (AUTO) 2.6 (1.0-3.2); LYMPHOCYTES % 25.3 % (18.0-39.1); MEAN CORPUSCULAR HGB CONC 31.6 g/dL (31-35); MONOCYTES # (AUTO) 0.8 (0.2-0.8); MONOCYTES % 7.4 % (4.4-11.3); NEUTROPHILS # (AUTO) 6.2 (2.1-6.9); NEUTROPHILS % 60.9 % (38.7-80.0); PLATELET COUNT 427 x10e3/uL (140-360); RED BLOOD COUNT 3.48 x10e6/uL (4.3-5.7); RED CELL DISTRIBUTION WIDTH 14.7 % (11.7-14.4)
[2021-08-09 06:40] LABS: ALBUMIN 2.4 g/dL (3.5-5.0); ALBUMIN/GLOBULIN RATIO 0.5 (0.8-2.0); CREATININE, SERUM 0.51 mg/dL (0.72-1.25)
[2021-08-09] MEDS: EYE LUBRICANT OPTH OINT 3.5GM TUBE OP SCH ×2 (08:03→17:20)
[2021-08-09] MEDS: DEXAMETHASONE SOD PHOS 10 MG/1 ML VIAL IV SCH (08:03)
[2021-08-09] MEDS: SENNA-S TABLET PO SCH (08:03)
[2021-08-09] MEDS: FAMOTIDINE 20 MG/2 ML VIAL IV SCH ×2 (08:03→17:20)
[2021-08-09] MEDS: ENOXAPARIN INJ 80 MG/0.8 ML SYR SC SCH ×2 (08:03→21:25)
[2021-08-09] MEDS: INSULIN GLARGINE 100 UNITS/ML VIAL SQ SCH ×2 (08:04→21:00)
[2021-08-09 08:33] LABS: ABG PH 7.42 (7.35-7.45)
[2021-08-09 08:34] LABS: ABG HCO3 35 mmol/L (22-26); ABG PCO2 54 mmHg (35-45); ABG PO2 60 mmHg (80-105); ABG TCO2 37
[2021-08-09] MEDS: NOREPINEPHRINE 8 MG/D5W 250 ML 250 ML IV SCH (13:30)
[2021-08-10] VITALS (27 sets, daily range): BP systolic 90–176; BP diastolic 42–95
[2021-08-10] MEDS: METOCLOPRAMIDE HCL 10 MG/2ML VIAL IV SCH ×4 (00:04→17:07)
[2021-08-10] MEDS: INSULIN REGULAR, HUMAN 100 UNIT/1 ML SQ SCH ×4 (00:06→17:09)
[2021-08-10] MEDS: PROPOFOL IV EMULSION 10MG/ML 100 ML IV PRN ×7 (01:00→22:42)
[2021-08-10] MEDS: FENTANYL 2000MCG/NS 250 250 ML IV SCH ×3 (04:45→22:42)
[2021-08-10] MEDS: CEFEPIME 1 GM in SODIUM CHLORIDE 0.9% 50ML 50 ML IV SCH ×3 (05:01→22:14)
[2021-08-10] MEDS: ACETAMINOPHEN 325 MG/10 ML UDC NG PRN ×2 (05:02→14:41)
[2021-08-10 06:07] LABS: BASOPHILS # (AUTO) 0.1 (0.0-0.1); BASOPHILS % 0.5 % (0.0-1.0); EOSINOPHILS # (AUTO) 0.4 (0.0-0.4); EOSINOPHILS % 4.4 % (0.0-6.0); HEMATOCRIT 32.8 % (38.2-49.6); HEMOGLOBIN 10.7 g/dL (14.0-18.0); LYMPHOCYTES # (AUTO) 2.3 (1.0-3.2); LYMPHOCYTES % 23.2 % (18.0-39.1); MEAN CORPUSCULAR HEMOGLOBIN 28.9 pg (28-32); MEAN CORPUSCULAR HGB CONC 32.6 g/dL (31-35); MEAN CORPUSCULAR VOLUME 88.6 fL (81-99); MONOCYTES # (AUTO) 0.7 (0.2-0.8); NEUTROPHILS # (AUTO) 6.4 (2.1-6.9); PLATELET COUNT 474 x10e3/uL (140-360); RED CELL DISTRIBUTION WIDTH 14.7 % (11.7-14.4)
[2021-08-10 06:24] LABS: ALBUMIN 2.6 g/dL (3.5-5.0); ALBUMIN/GLOBULIN RATIO 0.5 (0.8-2.0); ANION GAP 16.3 mmol/L (8-16); CALCIUM 9.4 mg/dL (8.4-10.2); CREATININE, SERUM 0.5 mg/dL (0.72-1.25); POTASSIUM 4.3 mmol/L (3.5-5.1)
[2021-08-10] MEDS: DEXAMETHASONE SOD PHOS 10 MG/1 ML VIAL IV SCH (08:04)
[2021-08-10] MEDS: SENNA-S TABLET PO SCH (08:06)
[2021-08-10] MEDS: ENOXAPARIN INJ 80 MG/0.8 ML SYR SC SCH ×2 (08:06→21:00)
[2021-08-10] MEDS: EYE LUBRICANT OPTH OINT 3.5GM TUBE OP SCH ×2 (08:06→17:07)
[2021-08-10] MEDS: FAMOTIDINE 20 MG/2 ML VIAL IV SCH ×2 (08:06→17:07)
[2021-08-10] MEDS: INSULIN GLARGINE 100 UNITS/ML VIAL SQ SCH ×2 (08:09→21:00)
[2021-08-10 08:46] LABS: ABG HCO3 34 mmol/L (22-26); ABG PCO2 51 mmHg (35-45); ABG PH 7.44 (7.35-7.45); ABG PO2 71 mmHg (80-105); ABG TCO2 36
[2021-08-11] VITALS (17 sets, daily range): BP systolic 86–177; BP diastolic 40–74
[2021-08-11] MEDS: INSULIN REGULAR, HUMAN 100 UNIT/1 ML SQ SCH ×4 (00:02→18:26)
[2021-08-11] MEDS: ACETAMINOPHEN 325 MG/10 ML UDC NG PRN (01:30)
[2021-08-11] MEDS: PROPOFOL IV EMULSION 10MG/ML 100 ML IV PRN ×5 (03:31→22:38)
[2021-08-11] MEDS: CEFEPIME 1 GM in SODIUM CHLORIDE 0.9% 50ML 50 ML IV SCH ×3 (05:05→20:57)
[2021-08-11] MEDS: METOCLOPRAMIDE HCL 10 MG/2ML VIAL IV SCH ×4 (05:44→18:25)
[2021-08-11 06:23] LABS: BASOPHILS # (AUTO) 0.1 (0.0-0.1); BASOPHILS % 0.6 % (0.0-1.0); EOSINOPHILS # (AUTO) 0.5 (0.0-0.4); EOSINOPHILS % 4.2 % (0.0-6.0); HEMATOCRIT 30.8 % (38.2-49.6); HEMOGLOBIN 9.8 g/dL (14.0-18.0); LYMPHOCYTES # (AUTO) 1.5 (1.0-3.2); LYMPHOCYTES % 14.2 % (18.0-39.1); MEAN CORPUSCULAR HEMOGLOBIN 29.3 pg (28-32); MEAN CORPUSCULAR HGB CONC 31.8 g/dL (31-35); MEAN CORPUSCULAR VOLUME 91.9 fL (81-99); MONOCYTES # (AUTO) 0.6 (0.2-0.8); MONOCYTES % 5.5 % (4.4-11.3); NEUTROPHILS # (AUTO) 8.1 (2.1-6.9); NEUTROPHILS % 75.1 % (38.7-80.0); PLATELET COUNT 431 x10e3/uL (140-360); RED BLOOD COUNT 3.35 x10e6/uL (4.3-5.7); RED CELL DISTRIBUTION WIDTH 14.7 % (11.7-14.4)
[2021-08-11 06:37] LABS: ALBUMIN 2.3 g/dL (3.5-5.0); ALBUMIN/GLOBULIN RATIO 0.5 (0.8-2.0); ANION GAP 10.4 mmol/L (8-16); CALCIUM 9.3 mg/dL (8.4-10.2); CREATININE, SERUM 0.52 mg/dL (0.72-1.25); POTASSIUM 4.4 mmol/L (3.5-5.1)
[2021-08-11 07:26] LABS: ABG HCO3 39 mmol/L (22-26); ABG PCO2 68 mmHg (35-45); ABG PH 7.36 (7.35-7.45); ABG PO2 75 mmHg (80-105); ABG TCO2 41
[2021-08-11] MEDS: FENTANYL 2000MCG/NS 250 250 ML IV SCH ×2 (08:23→22:41)
[2021-08-11] MEDS: DEXAMETHASONE SOD PHOS 10 MG/1 ML VIAL IV SCH (08:27)
[2021-08-11] MEDS: FAMOTIDINE 20 MG/2 ML VIAL IV SCH ×2 (08:28→16:37)
[2021-08-11] MEDS: SENNA-S TABLET PO SCH (08:28)
[2021-08-11] MEDS: EYE LUBRICANT OPTH OINT 3.5GM TUBE OP SCH ×2 (08:28→16:37)
[2021-08-11] MEDS: ENOXAPARIN INJ 80 MG/0.8 ML SYR SC SCH ×2 (08:29→20:57)
[2021-08-11] MEDS: INSULIN GLARGINE 100 UNITS/ML VIAL SQ SCH ×2 (08:31→20:56)
[2021-08-11] MEDS ORDERED: NOREPINEPHRINE 8 MG/D5W 250 ML 250 ML IV SCH (09:45)
[2021-08-11] MEDS ORDERED: SODIUM CHLORIDE 1 GM TAB PO ONE (14:00)
[2021-08-11] MEDS ORDERED: ALTEPLASE RECOMBINANT 2 MG/2 ML VIAL IV PRN (14:45)
[2021-08-11] MEDS ORDERED: LORAZEPAM INJ 2 MG/ML VIAL IV ONE (16:00)
[2021-08-11] MEDS: NOREPINEPHRINE 8 MG/D5W 250 ML 250 ML IV SCH (20:54)
[2021-08-12] VITALS (25 sets, daily range): BP systolic 98–176; BP diastolic 44–64
[2021-08-12] MEDS: METOCLOPRAMIDE HCL 10 MG/2ML VIAL IV SCH ×4 (00:28→18:18)
[2021-08-12] MEDS: INSULIN REGULAR, HUMAN 100 UNIT/1 ML SQ SCH ×3 (00:29→12:41)
[2021-08-12] MEDS: PROPOFOL IV EMULSION 10MG/ML 100 ML IV PRN ×5 (01:05→23:06)
[2021-08-12] MEDS: CEFEPIME 1 GM in SODIUM CHLORIDE 0.9% 50ML 50 ML IV SCH ×3 (05:18→22:15)
[2021-08-12 05:34] LABS: BASOPHILS % 0.4 % (0.0-1.0); EOSINOPHILS # (AUTO) 0.2 (0.0-0.4); EOSINOPHILS % 2.2 % (0.0-6.0); HEMATOCRIT 29.2 % (38.2-49.6); HEMOGLOBIN 9.4 g/dL (14.0-18.0); LYMPHOCYTES # (AUTO) 1.8 (1.0-3.2); LYMPHOCYTES % 16.4 % (18.0-39.1); MEAN CORPUSCULAR HEMOGLOBIN 29.1 pg (28-32); MEAN CORPUSCULAR HGB CONC 32.2 g/dL (31-35); MEAN CORPUSCULAR VOLUME 90.4 fL (81-99); MONOCYTES # (AUTO) 0.8 (0.2-0.8); MONOCYTES % 6.9 % (4.4-11.3); NEUTROPHILS # (AUTO) 8.2 (2.1-6.9); NEUTROPHILS % 73.6 % (38.7-80.0); PLATELET COUNT 470 x10e3/uL (140-360); RED BLOOD COUNT 3.23 x10e6/uL (4.3-5.7); RED CELL DISTRIBUTION WIDTH 14.5 % (11.7-14.4)
[2021-08-12 05:59] LABS: ALBUMIN 2.3 g/dL (3.5-5.0); ALBUMIN/GLOBULIN RATIO 0.4 (0.8-2.0); ANION GAP 14.1 mmol/L (8-16); CALCIUM 9.3 mg/dL (8.4-10.2); CREATININE, SERUM 0.53 mg/dL (0.72-1.25); POTASSIUM 4.1 mmol/L (3.5-5.1)
[2021-08-12 07:13] LABS: ABG PH 7.37 (7.35-7.45)
[2021-08-12 07:14] LABS: ABG HCO3 40 mmol/L (22-26); ABG PCO2 69 mmHg (35-45); ABG PO2 59 mmHg (80-105); ABG TCO2 42
[2021-08-12] MEDS: INSULIN GLARGINE 100 UNITS/ML VIAL SQ SCH ×2 (09:43→20:55)
[2021-08-12] MEDS: FENTANYL 2000MCG/NS 250 250 ML IV SCH ×2 (09:44→20:57)
[2021-08-12] MEDS: DEXAMETHASONE SOD PHOS 10 MG/1 ML VIAL IV SCH (09:53)
[2021-08-12] MEDS: FAMOTIDINE 20 MG/2 ML VIAL IV SCH ×2 (09:54→18:15)
[2021-08-12] MEDS: EYE LUBRICANT OPTH OINT 3.5GM TUBE OP SCH ×2 (09:54→18:17)
[2021-08-12] MEDS: SENNA-S TABLET PO SCH (09:54)
[2021-08-12] MEDS: ENOXAPARIN INJ 80 MG/0.8 ML SYR SC SCH ×2 (09:55→20:31)
[2021-08-12] MEDS ORDERED: DEXTROSE 50% SYRINGE 50 ML IV PRN (18:30)
[2021-08-12] MEDS: LORAZEPAM INJ 2 MG/ML VIAL IV PRN (18:43)
[2021-08-12] MEDS: INSULIN LISPRO 100 UNIT/1 ML 3ML VIAL SQ SCH (18:44)
[2021-08-12] MEDS: NOREPINEPHRINE 8 MG/D5W 250 ML 250 ML IV SCH (20:30)
[2021-08-13] VITALS (26 sets, daily range): BP systolic 91–187; BP diastolic 43–85
[2021-08-13] MEDS: METOCLOPRAMIDE HCL 10 MG/2ML VIAL IV SCH ×5 (00:19→23:40)
[2021-08-13] MEDS: INSULIN LISPRO 100 UNIT/1 ML 3ML VIAL SQ SCH ×4 (00:30→23:41)
[2021-08-13] MEDS: PROPOFOL IV EMULSION 10MG/ML 100 ML IV PRN ×6 (02:39→20:19)
[2021-08-13 05:21] LABS: BASOPHILS # (AUTO) 0.1 (0.0-0.1); EOSINOPHILS # (AUTO) 0.2 (0.0-0.4); HEMOGLOBIN 8.7 g/dL (14.0-18.0); LYMPHOCYTES # (AUTO) 1.7 (1.0-3.2); LYMPHOCYTES % 27.9 % (18.0-39.1); MEAN CORPUSCULAR HEMOGLOBIN 31.1 pg (28-32); MEAN CORPUSCULAR HGB CONC 33.5 g/dL (31-35); MEAN CORPUSCULAR VOLUME 92.9 fL (81-99); MONOCYTES # (AUTO) 0.7 (0.2-0.8); NEUTROPHILS # (AUTO) 3.3 (2.1-6.9); NEUTROPHILS % 54.6 % (38.7-80.0); PLATELET COUNT 491 x10e3/uL (140-360); RED CELL DISTRIBUTION WIDTH 14.4 % (11.7-14.4)
[2021-08-13 05:43] LABS: ALBUMIN 2.1 g/dL (3.5-5.0); ALBUMIN/GLOBULIN RATIO 0.4 (0.8-2.0); ANION GAP 14.2 mmol/L (8-16); CALCIUM 8.5 mg/dL (8.4-10.2); CREATININE, SERUM 0.48 mg/dL (0.72-1.25); POTASSIUM 4.2 mmol/L (3.5-5.1)
[2021-08-13] MEDS: CEFEPIME 1 GM in SODIUM CHLORIDE 0.9% 50ML 50 ML IV SCH ×3 (05:52→21:34)
[2021-08-13] MEDS: FENTANYL 2000MCG/NS 250 250 ML IV SCH ×2 (06:40→16:35)
[2021-08-13] MEDS: FAMOTIDINE 20 MG/2 ML VIAL IV SCH ×2 (08:25→17:01)
[2021-08-13] MEDS: SENNA-S TABLET PO SCH (08:25)
[2021-08-13] MEDS: BALSAM PERU/CASTOR OIL 60 GM OINT...G. TP SCH (08:25)
[2021-08-13] MEDS: EYE LUBRICANT OPTH OINT 3.5GM TUBE OP SCH ×2 (08:25→17:01)
[2021-08-13] MEDS: ENOXAPARIN INJ 80 MG/0.8 ML SYR SC SCH ×2 (08:25→21:20)
[2021-08-13] MEDS: INSULIN GLARGINE 100 UNITS/ML VIAL SQ SCH ×2 (08:26→21:34)
[2021-08-13 08:29] LABS: ABG PH 7.33 (7.35-7.45)
[2021-08-13 08:30] LABS: ABG HCO3 41 mmol/L (22-26); ABG PCO2 78 mmHg (35-45); ABG PO2 80 mmHg (80-105); ABG TCO2 43
[2021-08-13] MEDS: NOREPINEPHRINE 8 MG/D5W 250 ML 250 ML IV SCH (19:00)
[2021-08-14] VITALS (26 sets, daily range): BP systolic 87–172; BP diastolic 51–120
[2021-08-14] MEDS: FENTANYL 2000MCG/NS 250 250 ML IV SCH ×4 (02:41→22:35)
[2021-08-14] MEDS: PROPOFOL IV EMULSION 10MG/ML 100 ML IV PRN ×5 (03:34→23:20)
[2021-08-14 05:07] LABS: BASOPHILS # (AUTO) 0.1 (0.0-0.1); BASOPHILS % 1.1 % (0.0-1.0); EOSINOPHILS # (AUTO) 0.6 (0.0-0.4); EOSINOPHILS % 6.9 % (0.0-6.0); HEMATOCRIT 30.9 % (38.2-49.6); HEMOGLOBIN 9.3 g/dL (14.0-18.0); LYMPHOCYTES # (AUTO) 1.5 (1.0-3.2); LYMPHOCYTES % 17.7 % (18.0-39.1); MEAN CORPUSCULAR HEMOGLOBIN 29.2 pg (28-32); MEAN CORPUSCULAR HGB CONC 30.1 g/dL (31-35); MEAN CORPUSCULAR VOLUME 97.2 fL (81-99); MONOCYTES # (AUTO) 0.9 (0.2-0.8); MONOCYTES % 10.3 % (4.4-11.3); NEUTROPHILS # (AUTO) 5.4 (2.1-6.9); NEUTROPHILS % 63.2 % (38.7-80.0); PLATELET COUNT 516 x10e3/uL (140-360); RED BLOOD COUNT 3.18 x10e6/uL (4.3-5.7); RED CELL DISTRIBUTION WIDTH 14.7 % (11.7-14.4)
[2021-08-14] MEDS: CEFEPIME 1 GM in SODIUM CHLORIDE 0.9% 50ML 50 ML IV SCH (05:11)
[2021-08-14] MEDS: METOCLOPRAMIDE HCL 10 MG/2ML VIAL IV SCH ×3 (05:11→17:01)
[2021-08-14] MEDS: INSULIN LISPRO 100 UNIT/1 ML 3ML VIAL SQ SCH ×3 (05:23→17:11)
[2021-08-14 05:54] LABS: ALBUMIN 2.2 g/dL (3.5-5.0); ALBUMIN/GLOBULIN RATIO 0.4 (0.8-2.0); ANION GAP 12.7 mmol/L (8-16); CALCIUM 9.1 mg/dL (8.4-10.2); CREATININE, SERUM 0.46 mg/dL (0.72-1.25); POTASSIUM 4.7 mmol/L (3.5-5.1)
[2021-08-14 08:09] LABS: ABG PH 7.31 (7.35-7.45)
[2021-08-14] MEDS: FAMOTIDINE 20 MG/2 ML VIAL IV SCH ×2 (08:09→17:01)
[2021-08-14] MEDS: ENOXAPARIN INJ 80 MG/0.8 ML SYR SC SCH ×2 (08:09→21:27)
[2021-08-14] MEDS: SENNA-S TABLET PO SCH (08:09)
[2021-08-14] MEDS: EYE LUBRICANT OPTH OINT 3.5GM TUBE OP SCH ×2 (08:09→17:01)
[2021-08-14 08:10] LABS: ABG HCO3 50 mmol/L (22-26); ABG PCO2 101 mmHg (35-45); ABG PO2 97 mmHg (80-105); ABG TCO2 > 50
[2021-08-14] MEDS: BALSAM PERU/CASTOR OIL 60 GM OINT...G. TP SCH (08:10)
[2021-08-14] MEDS: INSULIN GLARGINE 100 UNITS/ML VIAL SQ SCH ×2 (08:10→21:26)
[2021-08-14] MEDS: LORAZEPAM INJ 2 MG/ML VIAL IV PRN (09:06)
[2021-08-14] MEDS ORDERED: VECURONIUM BROMIDE FOR INJ 20 MG VIAL IV STA (09:17)
[2021-08-14] MEDS ORDERED: FUROSEMIDE INJ 10 MG/ML 4 ML VIAL IV ONE (09:30)
[2021-08-14] MEDS ORDERED: VECURONIUM BROMIDE FOR INJ 20 MG VIAL ONE (09:39)
[2021-08-14] MEDS ORDERED: METOPROLOL TARTRATE INJ 1 MG/ML VIAL IV PRN (17:30)
[2021-08-14] MEDS: NOREPINEPHRINE 8 MG/D5W 250 ML 250 ML IV SCH (19:00)
[2021-08-15] VITALS (23 sets, daily range): BP systolic 103–154; BP diastolic 55–66
[2021-08-15] MEDS: METOCLOPRAMIDE HCL 10 MG/2ML VIAL IV SCH ×4 (00:40→17:23)
[2021-08-15] MEDS: INSULIN LISPRO 100 UNIT/1 ML 3ML VIAL SQ SCH ×4 (00:48→18:44)
[2021-08-15] MEDS: PROPOFOL IV EMULSION 10MG/ML 100 ML IV PRN ×7 (02:15→21:08)
[2021-08-15 06:16] LABS: BASOPHILS % 0.7 % (0.0-1.0); EOSINOPHILS % 0.5 % (0.0-6.0); HEMATOCRIT 31.2 % (38.2-49.6); HEMOGLOBIN 9.3 g/dL (14.0-18.0); LYMPHOCYTES # (AUTO) 0.6 (1.0-3.2); LYMPHOCYTES % 14.8 % (18.0-39.1); MEAN CORPUSCULAR HEMOGLOBIN 29.6 pg (28-32); MEAN CORPUSCULAR HGB CONC 29.8 g/dL (31-35); MEAN CORPUSCULAR VOLUME 99.4 fL (81-99); MONOCYTES # (AUTO) 0.5 (0.2-0.8); MONOCYTES % 11.4 % (4.4-11.3); NEUTROPHILS % 70.5 % (38.7-80.0); PLATELET COUNT 411 x10e3/uL (140-360); RED BLOOD COUNT 3.14 x10e6/uL (4.3-5.7); RED CELL DISTRIBUTION WIDTH 14.7 % (11.7-14.4)
[2021-08-15 06:55] LABS: ALBUMIN 2.3 g/dL (3.5-5.0); ALBUMIN/GLOBULIN RATIO 0.4 (0.8-2.0); ANION GAP 15.2 mmol/L (8-16); CALCIUM 9.6 mg/dL (8.4-10.2); CREATININE, SERUM 0.73 mg/dL (0.72-1.25); POTASSIUM 5.2 mmol/L (3.5-5.1)
[2021-08-15 08:42] LABS: ABG PH 7.19 (7.35-7.45)
[2021-08-15 08:43] LABS: ABG PCO2 > 130 mmHg (35-45)
[2021-08-15 08:47] LABS: ABG PO2 124 mmHg (80-105)
[2021-08-15] MEDS: ENOXAPARIN INJ 80 MG/0.8 ML SYR SC SCH ×2 (09:33→21:07)
[2021-08-15] MEDS: SENNA-S TABLET PO SCH (09:33)
[2021-08-15] MEDS: EYE LUBRICANT OPTH OINT 3.5GM TUBE OP SCH ×2 (09:33→17:23)
[2021-08-15] MEDS: BALSAM PERU/CASTOR OIL 60 GM OINT...G. TP SCH (09:33)
[2021-08-15] MEDS: FAMOTIDINE 20 MG/2 ML VIAL IV SCH ×2 (09:33→17:23)
[2021-08-15] MEDS: INSULIN GLARGINE 100 UNITS/ML VIAL SQ SCH ×2 (09:43→22:06)
[2021-08-15 10:07] LABS: ABG HCO3 53 mmol/L (22-26); ABG PCO2 108 mmHg (35-45); ABG PO2 129 mmHg (80-105)
[2021-08-15 10:08] LABS: ABG TCO2 > 50
[2021-08-15] MEDS ORDERED: SODIUM CHLORIDE 0.9% 1000ML 1,000 ML ONE ×2 (10:42→15:07)
[2021-08-15] MEDS: LORAZEPAM INJ 2 MG/ML VIAL IV PRN ×3 (11:30→21:08)
[2021-08-15] MEDS: FENTANYL 2000MCG/NS 250 250 ML IV SCH ×2 (12:35→17:25)
[2021-08-15 15:32] LABS: ABG PH 7.31 (7.35-7.45)
[2021-08-15 15:36] LABS: ABG HCO3 54 mmol/L (22-26); ABG PCO2 108 mmHg (35-45); ABG PO2 78 mmHg (80-105); ABG TCO2 > 50
[2021-08-16] VITALS (25 sets, daily range): BP systolic 92–147; BP diastolic 41–79
[2021-08-16] MEDS: METOCLOPRAMIDE HCL 10 MG/2ML VIAL IV SCH ×4 (00:27→19:07)
[2021-08-16] MEDS: INSULIN LISPRO 100 UNIT/1 ML 3ML VIAL SQ SCH ×4 (00:28→18:00)
[2021-08-16] MEDS: PROPOFOL IV EMULSION 10MG/ML 100 ML IV PRN ×5 (00:30→14:16)
[2021-08-16] MEDS: LORAZEPAM INJ 2 MG/ML VIAL IV PRN ×4 (04:07→19:20)
[2021-08-16 05:58] LABS: BASOPHILS # (AUTO) 0.1 (0.0-0.1); BASOPHILS % 1.5 % (0.0-1.0); EOSINOPHILS # (AUTO) 0.2 (0.0-0.4); EOSINOPHILS % 3.5 % (0.0-6.0); HEMATOCRIT 28.9 % (38.2-49.6); HEMOGLOBIN 8.7 g/dL (14.0-18.0); LYMPHOCYTES # (AUTO) 1.1 (1.0-3.2); LYMPHOCYTES % 17.2 % (18.0-39.1); MEAN CORPUSCULAR HEMOGLOBIN 30.2 pg (28-32); MEAN CORPUSCULAR HGB CONC 30.1 g/dL (31-35); MEAN CORPUSCULAR VOLUME 100.3 fL (81-99); MONOCYTES # (AUTO) 0.6 (0.2-0.8); MONOCYTES % 8.9 % (4.4-11.3); NEUTROPHILS # (AUTO) 4.4 (2.1-6.9); NEUTROPHILS % 66.5 % (38.7-80.0); PLATELET COUNT 532 x10e3/uL (140-360); RED BLOOD COUNT 2.88 x10e6/uL (4.3-5.7); RED CELL DISTRIBUTION WIDTH 14.8 % (11.7-14.4)
[2021-08-16 06:16] LABS: ALBUMIN 2.3 g/dL (3.5-5.0); ALBUMIN/GLOBULIN RATIO 0.4 (0.8-2.0); ANION GAP 10.9 mmol/L (8-16); CALCIUM 9.5 mg/dL (8.4-10.2); CREATININE, SERUM 0.63 mg/dL (0.72-1.25); POTASSIUM 4.9 mmol/L (3.5-5.1)
[2021-08-16] MEDS: ACETAMINOPHEN 325 MG/10 ML UDC NG PRN (07:17)
[2021-08-16] MEDS: FAMOTIDINE 20 MG/2 ML VIAL IV SCH ×2 (09:02→19:06)
[2021-08-16] MEDS: SENNA-S TABLET PO SCH (09:02)
[2021-08-16] MEDS: EYE LUBRICANT OPTH OINT 3.5GM TUBE OP SCH ×2 (09:02→19:06)
[2021-08-16] MEDS: ENOXAPARIN INJ 80 MG/0.8 ML SYR SC SCH ×2 (09:02→22:04)
[2021-08-16] MEDS: INSULIN GLARGINE 100 UNITS/ML VIAL SQ SCH ×2 (09:03→22:05)
[2021-08-16] MEDS: BALSAM PERU/CASTOR OIL 60 GM OINT...G. TP SCH (09:03)
[2021-08-16] MEDS ORDERED: ACETAMINOPHEN 1000 MG/100 ML IV PRN ×2 (10:45→12:30)
[2021-08-16] MEDS ORDERED: ACETAMINOPHEN 1000 MG/100 ML 100 ML IV ONE (10:55)
[2021-08-16 13:24] LABS: ABG HCO3 58 mmol/L (22-26); ABG PCO2 71 mmHg (35-45); ABG PH 7.52 (7.35-7.45); ABG PO2 76 mmHg (80-105); ABG TCO2 > 50
[2021-08-16] MEDS: ACETAZOLAMIDE SODIUM 500 MG/VIAL IV SCH ×2 (13:26→19:06)
[2021-08-16] MEDS ORDERED: VECURONIUM BROMIDE FOR INJ 20 MG VIAL IV STA (13:33)
[2021-08-16] MEDS ORDERED: VECURONIUM BROMIDE FOR INJ 20 MG VIAL ONE (13:39)
[2021-08-16] MEDS: FENTANYL 2000MCG/NS 250 250 ML IV SCH (14:14)
[2021-08-16] MEDS: Vancomycin IV 1 GM in SODIUM CHLORIDE 0.9% 250ML 250 ML IV SCH (19:06)
[2021-08-16] MEDS ORDERED: ENOXAPARIN SODIUM INJ 100 MG/ML SYR SC SCH (21:00)
[2021-08-16] MEDS: CEFEPIME 2 GM in SODIUM CHLORIDE 0.9% 100 ML IV SCH (22:05)
[2021-08-17] VITALS (25 sets, daily range): BP systolic 93–195; BP diastolic 43–74
[2021-08-17] MEDS: METOCLOPRAMIDE HCL 10 MG/2ML VIAL IV SCH ×5 (01:13→23:40)
[2021-08-17] MEDS: Vancomycin IV 1 GM in SODIUM CHLORIDE 0.9% 250ML 250 ML IV SCH ×2 (02:57→15:36)
[2021-08-17] MEDS: FENTANYL 2000MCG/NS 250 250 ML IV SCH ×2 (02:58→17:40)
[2021-08-17] MEDS: PROPOFOL IV EMULSION 10MG/ML 100 ML IV PRN ×5 (02:59→16:48)
[2021-08-17 05:11] LABS: BASOPHILS # (AUTO) 0.1 (0.0-0.1); BASOPHILS % 1.2 % (0.0-1.0); EOSINOPHILS # (AUTO) 0.5 (0.0-0.4); EOSINOPHILS % 7.2 % (0.0-6.0); HEMATOCRIT 29.2 % (38.2-49.6); HEMOGLOBIN 8.8 g/dL (14.0-18.0); LYMPHOCYTES # (AUTO) 1.3 (1.0-3.2); LYMPHOCYTES % 17.4 % (18.0-39.1); MEAN CORPUSCULAR HGB CONC 30.1 g/dL (31-35); MEAN CORPUSCULAR VOLUME 96.4 fL (81-99); MONOCYTES # (AUTO) 0.6 (0.2-0.8); MONOCYTES % 8.3 % (4.4-11.3); NEUTROPHILS # (AUTO) 4.8 (2.1-6.9); NEUTROPHILS % 64.8 % (38.7-80.0); PLATELET COUNT 523 x10e3/uL (140-360); RED BLOOD COUNT 3.03 x10e6/uL (4.3-5.7); RED CELL DISTRIBUTION WIDTH 15.3 % (11.7-14.4)
[2021-08-17 05:26] LABS: ALBUMIN 2.1 g/dL (3.5-5.0); ALBUMIN/GLOBULIN RATIO 0.4 (0.8-2.0); ANION GAP 12.1 mmol/L (8-16); CALCIUM 9.5 mg/dL (8.4-10.2); CREATININE, SERUM 0.61 mg/dL (0.72-1.25); POTASSIUM 4.1 mmol/L (3.5-5.1)
[2021-08-17] MEDS: INSULIN LISPRO 100 UNIT/1 ML 3ML VIAL SQ SCH ×5 (06:00→23:41)
[2021-08-17] MEDS: CEFEPIME 2 GM in SODIUM CHLORIDE 0.9% 100 ML IV SCH ×3 (06:41→21:16)
[2021-08-17] MEDS: EYE LUBRICANT OPTH OINT 3.5GM TUBE OP SCH ×2 (08:47→17:09)
[2021-08-17] MEDS: ACETAZOLAMIDE SODIUM 500 MG/VIAL IV SCH ×2 (08:47→17:09)
[2021-08-17] MEDS: ENOXAPARIN INJ 80 MG/0.8 ML SYR SC SCH ×2 (08:50→20:51)
[2021-08-17] MEDS: BALSAM PERU/CASTOR OIL 60 GM OINT...G. TP SCH (08:51)
[2021-08-17] MEDS: LORAZEPAM INJ 2 MG/ML VIAL IV PRN (09:19)
[2021-08-17 09:43] LABS: ABG PCO2 72 mmHg (35-45); ABG PH 7.42 (7.35-7.45)
[2021-08-17 09:44] LABS: ABG HCO3 47 mmol/L (22-26); ABG PO2 93 mmHg (80-105); ABG TCO2 49
[2021-08-17] MEDS: INSULIN GLARGINE 100 UNITS/ML VIAL SQ SCH ×2 (09:57→20:52)
[2021-08-17] MEDS: NOREPINEPHRINE 8 MG/D5W 250 ML 250 ML IV SCH (20:07)
[2021-08-18] VITALS (25 sets, daily range): BP systolic 96–145; BP diastolic 42–59
[2021-08-18] MEDS: Vancomycin IV 1 GM in SODIUM CHLORIDE 0.9% 250ML 250 ML IV SCH ×2 (02:53→15:00)
[2021-08-18 05:39] LABS: BASOPHILS # (AUTO) 0.1 (0.0-0.1); BASOPHILS % 1.3 % (0.0-1.0); EOSINOPHILS # (AUTO) 0.5 (0.0-0.4); EOSINOPHILS % 9.7 % (0.0-6.0); HEMOGLOBIN 8.2 g/dL (14.0-18.0); LYMPHOCYTES # (AUTO) 1.6 (1.0-3.2); LYMPHOCYTES % 27.7 % (18.0-39.1); MEAN CORPUSCULAR HEMOGLOBIN 29.6 pg (28-32); MEAN CORPUSCULAR HGB CONC 30.4 g/dL (31-35); MEAN CORPUSCULAR VOLUME 97.5 fL (81-99); MONOCYTES # (AUTO) 0.5 (0.2-0.8); MONOCYTES % 9.1 % (4.4-11.3); NEUTROPHILS # (AUTO) 2.8 (2.1-6.9); NEUTROPHILS % 49.9 % (38.7-80.0); PLATELET COUNT 434 x10e3/uL (140-360); RED BLOOD COUNT 2.77 x10e6/uL (4.3-5.7)
[2021-08-18] MEDS: CEFEPIME 2 GM in SODIUM CHLORIDE 0.9% 100 ML IV SCH ×3 (05:42→21:01)
[2021-08-18] MEDS: METOCLOPRAMIDE HCL 10 MG/2ML VIAL IV SCH ×3 (05:43→17:06)
[2021-08-18] MEDS: INSULIN LISPRO 100 UNIT/1 ML 3ML VIAL SQ SCH ×4 (05:43→23:45)
[2021-08-18] MEDS: PROPOFOL IV EMULSION 10MG/ML 100 ML IV PRN ×5 (05:46→22:36)
[2021-08-18 06:06] LABS: ALBUMIN 1.9 g/dL (3.5-5.0); ALBUMIN/GLOBULIN RATIO 0.4 (0.8-2.0); ANION GAP 12.8 mmol/L (8-16); CALCIUM 9.5 mg/dL (8.4-10.2); CREATININE, SERUM 0.58 mg/dL (0.72-1.25); POTASSIUM 3.8 mmol/L (3.5-5.1)
[2021-08-18] MEDS: FENTANYL 2000MCG/NS 250 250 ML IV SCH ×3 (07:05→20:21)
[2021-08-18 08:07] LABS: ABG PH 7.27 (7.35-7.45)
[2021-08-18 08:09] LABS: ABG HCO3 41 mmol/L (22-26); ABG PCO2 90 mmHg (35-45); ABG PO2 119 mmHg (80-105); ABG TCO2 44
[2021-08-18] MEDS: EYE LUBRICANT OPTH OINT 3.5GM TUBE OP SCH ×2 (08:37→16:13)
[2021-08-18] MEDS: BALSAM PERU/CASTOR OIL 60 GM OINT...G. TP SCH (08:37)
[2021-08-18] MEDS: ENOXAPARIN INJ 80 MG/0.8 ML SYR SC SCH ×2 (08:37→21:01)
[2021-08-18] MEDS: ACETAZOLAMIDE SODIUM 500 MG/VIAL IV SCH ×2 (08:37→16:13)
[2021-08-18] MEDS: INSULIN GLARGINE 100 UNITS/ML VIAL SQ SCH ×2 (08:38→21:03)
[2021-08-18] MEDS: LORAZEPAM INJ 2 MG/ML VIAL IV PRN (09:56)
[2021-08-18 11:36] LABS: BAND NEUTROPHILS % (MANUAL) 4 %; EOSINOPHILS % (MANUAL) 10 % (0-7); LYMPHOCYTES % (MANUAL) 24 % (19-48); MONOCYTES % (MANUAL) 4 % (3.4-9.0); NEUTROPHILS % (MANUAL) 56 % (40-74); PLATELET ESTIMATE ADEQUATE; PLATELET MORPHOLOGY COMMENT NORMAL; PROMYELOCYTES % (MANUAL) 1 % (0-0); RBC MORPHOLOGY COMMENT NORMAL
[2021-08-18] MEDS: NOREPINEPHRINE 8 MG/D5W 250 ML 250 ML IV SCH (19:52)
[2021-08-19] VITALS (25 sets, daily range): BP systolic 89–176; BP diastolic 41–65
[2021-08-19] MEDS: METOCLOPRAMIDE HCL 10 MG/2ML VIAL IV SCH ×5 (00:18→23:46)
[2021-08-19] MEDS: PROPOFOL IV EMULSION 10MG/ML 100 ML IV PRN ×2 (01:47→05:28)
[2021-08-19] MEDS: CEFEPIME 2 GM in SODIUM CHLORIDE 0.9% 100 ML IV SCH ×3 (05:27→22:16)
[2021-08-19] MEDS: NOREPINEPHRINE 8 MG/D5W 250 ML 250 ML IV SCH ×2 (05:29→05:52)
[2021-08-19] MEDS: INSULIN LISPRO 100 UNIT/1 ML 3ML VIAL SQ SCH ×4 (05:58→23:40)
[2021-08-19 06:09] LABS: BASOPHILS # (AUTO) 0.1 (0.0-0.1); BASOPHILS % 1.2 % (0.0-1.0); EOSINOPHILS # (AUTO) 0.8 (0.0-0.4); EOSINOPHILS % 12.7 % (0.0-6.0); HEMATOCRIT 28.9 % (38.2-49.6); HEMOGLOBIN 8.6 g/dL (14.0-18.0); LYMPHOCYTES # (AUTO) 1.3 (1.0-3.2); LYMPHOCYTES % 21.1 % (18.0-39.1); MEAN CORPUSCULAR HEMOGLOBIN 29.3 pg (28-32); MEAN CORPUSCULAR HGB CONC 29.8 g/dL (31-35); MEAN CORPUSCULAR VOLUME 98.3 fL (81-99); MONOCYTES # (AUTO) 0.6 (0.2-0.8); MONOCYTES % 10.4 % (4.4-11.3); NEUTROPHILS # (AUTO) 3.1 (2.1-6.9); NEUTROPHILS % 51.4 % (38.7-80.0); PLATELET COUNT 409 x10e3/uL (140-360); RED BLOOD COUNT 2.94 x10e6/uL (4.3-5.7); RED CELL DISTRIBUTION WIDTH 15.1 % (11.7-14.4)
[2021-08-19 06:30] LABS: ALBUMIN/GLOBULIN RATIO 0.3 (0.8-2.0); ANION GAP 13.2 mmol/L (8-16); CALCIUM 9.8 mg/dL (8.4-10.2); CREATININE, SERUM 0.57 mg/dL (0.72-1.25); POTASSIUM 4.2 mmol/L (3.5-5.1)
[2021-08-19] MEDS: EYE LUBRICANT OPTH OINT 3.5GM TUBE OP SCH ×2 (08:19→17:41)
[2021-08-19] MEDS: BALSAM PERU/CASTOR OIL 60 GM OINT...G. TP SCH (08:19)
[2021-08-19] MEDS: ENOXAPARIN INJ 80 MG/0.8 ML SYR SC SCH ×2 (08:19→21:06)
[2021-08-19] MEDS: INSULIN GLARGINE 100 UNITS/ML VIAL SQ SCH ×2 (08:20→21:05)
[2021-08-19] MEDS: FENTANYL 2000MCG/NS 250 250 ML IV SCH ×2 (09:31→22:16)
[2021-08-19] MEDS ORDERED: PROPOFOL IV EMULSION 10MG/ML 100 ML ONE (15:29)
[2021-08-19] MEDS: PROPOFOL IV EMULSION 10MG/ML 100 ML IV SCH ×2 (15:43→22:16)
[2021-08-19 17:32] LABS: ABG PH 7.28 (7.35-7.45)
[2021-08-19 17:33] LABS: ABG HCO3 42 mmol/L (22-26); ABG PCO2 90 mmHg (35-45); ABG PO2 114 mmHg (80-105); ABG TCO2 44
[2021-08-20] VITALS (33 sets, daily range): BP systolic 99–182; BP diastolic 42–76
[2021-08-20] MEDS: PROPOFOL IV EMULSION 10MG/ML 100 ML IV SCH ×7 (01:13→21:34)
[2021-08-20] MEDS: CEFEPIME 2 GM in SODIUM CHLORIDE 0.9% 100 ML IV SCH ×3 (05:39→20:36)
[2021-08-20] MEDS: METOCLOPRAMIDE HCL 10 MG/2ML VIAL IV SCH ×4 (05:39→23:37)
[2021-08-20] MEDS: INSULIN LISPRO 100 UNIT/1 ML 3ML VIAL SQ SCH ×4 (05:39→23:38)
[2021-08-20 05:57] LABS: BASOPHILS # (AUTO) 0.1 (0.0-0.1); BASOPHILS % 1.1 % (0.0-1.0); EOSINOPHILS # (AUTO) 0.5 (0.0-0.4); EOSINOPHILS % 11.7 % (0.0-6.0); HEMATOCRIT 28.2 % (38.2-49.6); HEMOGLOBIN 8.5 g/dL (14.0-18.0); LYMPHOCYTES # (AUTO) 1.5 (1.0-3.2); LYMPHOCYTES % 33.8 % (18.0-39.1); MEAN CORPUSCULAR HEMOGLOBIN 29.4 pg (28-32); MEAN CORPUSCULAR HGB CONC 30.1 g/dL (31-35); MEAN CORPUSCULAR VOLUME 97.6 fL (81-99); MONOCYTES # (AUTO) 0.5 (0.2-0.8); MONOCYTES % 11.7 % (4.4-11.3); NEUTROPHILS # (AUTO) 1.7 (2.1-6.9); NEUTROPHILS % 38.6 % (38.7-80.0); PLATELET COUNT 356 x10e3/uL (140-360); RED BLOOD COUNT 2.89 x10e6/uL (4.3-5.7); RED CELL DISTRIBUTION WIDTH 15.1 % (11.7-14.4)
[2021-08-20 06:20] LABS: ALBUMIN/GLOBULIN RATIO 0.3 (0.8-2.0); ANION GAP 13.1 mmol/L (8-16); CALCIUM 9.9 mg/dL (8.4-10.2); CREATININE, SERUM 0.56 mg/dL (0.72-1.25); POTASSIUM 4.1 mmol/L (3.5-5.1)
[2021-08-20] MEDS: EYE LUBRICANT OPTH OINT 3.5GM TUBE OP SCH ×2 (08:47→17:08)
[2021-08-20] MEDS: ENOXAPARIN INJ 80 MG/0.8 ML SYR SC SCH ×2 (08:48→20:36)
[2021-08-20] MEDS: BALSAM PERU/CASTOR OIL 60 GM OINT...G. TP SCH (08:48)
[2021-08-20] MEDS: INSULIN GLARGINE 100 UNITS/ML VIAL SQ SCH ×2 (09:03→20:35)
[2021-08-20 09:27] LABS: ABG PH 7.28 (7.35-7.45)
[2021-08-20 09:28] LABS: ABG PCO2 92 mmHg (35-45); ABG PO2 76 mmHg (80-105)
[2021-08-20 09:29] LABS: ABG HCO3 43 mmol/L (22-26); ABG TCO2 46
[2021-08-20] MEDS: LORAZEPAM INJ 2 MG/ML VIAL IV PRN ×2 (09:35→11:46)
[2021-08-20] MEDS: FENTANYL 2000MCG/NS 250 250 ML IV SCH (11:45)
[2021-08-20] MEDS ORDERED: HYDROCORTISONE SOD SUCCINATE 100 MG VIAL IV ONE (12:45)
[2021-08-20] MEDS ORDERED: NOREPINEPHRINE 8 MG/D5W 250 ML 250 ML IV PRN (18:00)
[2021-08-21] VITALS (26 sets, daily range): BP systolic 84–182; BP diastolic 43–80
[2021-08-21] MEDS: PROPOFOL IV EMULSION 10MG/ML 100 ML IV SCH ×7 (00:16→20:51)
[2021-08-21] MEDS: FENTANYL 2000MCG/NS 250 250 ML IV SCH ×2 (00:18→14:42)
[2021-08-21 05:06] LABS: BASOPHILS % 0.4 % (0.0-1.0); EOSINOPHILS # (AUTO) 0.2 (0.0-0.4); EOSINOPHILS % 3.2 % (0.0-6.0); HEMATOCRIT 25.3 % (38.2-49.6); HEMOGLOBIN 7.8 g/dL (14.0-18.0); LYMPHOCYTES # (AUTO) 1.1 (1.0-3.2); LYMPHOCYTES % 22.8 % (18.0-39.1); MEAN CORPUSCULAR HEMOGLOBIN 29.4 pg (28-32); MEAN CORPUSCULAR HGB CONC 30.8 g/dL (31-35); MEAN CORPUSCULAR VOLUME 95.5 fL (81-99); MONOCYTES # (AUTO) 0.6 (0.2-0.8); MONOCYTES % 13.3 % (4.4-11.3); NEUTROPHILS # (AUTO) 2.7 (2.1-6.9); NEUTROPHILS % 57.9 % (38.7-80.0); PLATELET COUNT 331 x10e3/uL (140-360); RED BLOOD COUNT 2.65 x10e6/uL (4.3-5.7); RED CELL DISTRIBUTION WIDTH 15.1 % (11.7-14.4)
[2021-08-21] MEDS: CEFEPIME 2 GM in SODIUM CHLORIDE 0.9% 100 ML IV SCH (05:23)
[2021-08-21] MEDS: METOCLOPRAMIDE HCL 10 MG/2ML VIAL IV SCH (05:23)
[2021-08-21] MEDS: INSULIN LISPRO 100 UNIT/1 ML 3ML VIAL SQ SCH ×4 (05:26→23:41)
[2021-08-21 05:36] LABS: ALBUMIN 1.9 g/dL (3.5-5.0); ALBUMIN/GLOBULIN RATIO 0.3 (0.8-2.0); ANION GAP 9.4 mmol/L (8-16); CALCIUM 9.7 mg/dL (8.4-10.2); CREATININE, SERUM 0.57 mg/dL (0.72-1.25); POTASSIUM 4.4 mmol/L (3.5-5.1)
[2021-08-21 07:59] LABS: ABG PH 7.32 (7.35-7.45)
[2021-08-21 08:00] LABS: ABG HCO3 46 mmol/L (22-26); ABG PCO2 89 mmHg (35-45); ABG PO2 139 mmHg (80-105); ABG TCO2 48
[2021-08-21] MEDS: EYE LUBRICANT OPTH OINT 3.5GM TUBE OP SCH ×2 (08:48→17:31)
[2021-08-21] MEDS: ENOXAPARIN INJ 80 MG/0.8 ML SYR SC SCH ×2 (08:48→20:51)
[2021-08-21] MEDS: BALSAM PERU/CASTOR OIL 60 GM OINT...G. TP SCH (09:07)
[2021-08-21] MEDS: INSULIN GLARGINE 100 UNITS/ML VIAL SQ SCH ×2 (09:10→20:51)
[2021-08-21] MEDS: LORAZEPAM INJ 2 MG/ML VIAL IV PRN ×3 (09:28→20:51)
[2021-08-21] MEDS: HYDROCORTISONE SOD SUCCINATE 100 MG VIAL IV SCH ×2 (09:34→20:51)
[2021-08-21] MEDS: MEROPENEM 500 MG in SODIUM CHLORIDE 0.9% 50ML 50 ML IV SCH ×2 (14:39→21:25)
[2021-08-22] VITALS (24 sets, daily range): BP systolic 90–197; BP diastolic 44–88
[2021-08-22] MEDS: PROPOFOL IV EMULSION 10MG/ML 100 ML IV SCH ×5 (03:00→19:00)
[2021-08-22] MEDS: FENTANYL 2000MCG/NS 250 250 ML IV SCH ×3 (03:56→17:35)
[2021-08-22 04:34] LABS: BASOPHILS % 0.6 % (0.0-1.0); EOSINOPHILS % 0.6 % (0.0-6.0); HEMATOCRIT 24.3 % (38.2-49.6); HEMOGLOBIN 7.7 g/dL (14.0-18.0); LYMPHOCYTES # (AUTO) 1.5 (1.0-3.2); LYMPHOCYTES % 28.4 % (18.0-39.1); MEAN CORPUSCULAR HGB CONC 31.7 g/dL (31-35); MEAN CORPUSCULAR VOLUME 94.6 fL (81-99); MONOCYTES # (AUTO) 0.5 (0.2-0.8); MONOCYTES % 9.4 % (4.4-11.3); PLATELET COUNT 328 x10e3/uL (140-360); RED BLOOD COUNT 2.57 x10e6/uL (4.3-5.7); RED CELL DISTRIBUTION WIDTH 15.3 % (11.7-14.4)
[2021-08-22 04:56] LABS: ALBUMIN 1.9 g/dL (3.5-5.0); ALBUMIN/GLOBULIN RATIO 0.3 (0.8-2.0); ANION GAP 9.6 mmol/L (8-16); CALCIUM 9.2 mg/dL (8.4-10.2); CREATININE, SERUM 0.55 mg/dL (0.72-1.25); POTASSIUM 4.6 mmol/L (3.5-5.1)
[2021-08-22] MEDS: INSULIN LISPRO 100 UNIT/1 ML 3ML VIAL SQ SCH ×4 (05:14→23:27)
[2021-08-22] MEDS: MEROPENEM 500 MG in SODIUM CHLORIDE 0.9% 50ML 50 ML IV SCH ×3 (05:14→21:17)
[2021-08-22] MEDS: HYDROCORTISONE SOD SUCCINATE 100 MG VIAL IV SCH ×2 (08:15→21:17)
[2021-08-22] MEDS: EYE LUBRICANT OPTH OINT 3.5GM TUBE OP SCH ×2 (08:16→18:05)
[2021-08-22] MEDS: ENOXAPARIN INJ 80 MG/0.8 ML SYR SC SCH ×2 (08:16→20:05)
[2021-08-22] MEDS: INSULIN GLARGINE 100 UNITS/ML VIAL SQ SCH ×2 (08:17→20:06)
[2021-08-22 08:39] LABS: ABG HCO3 46 mmol/L (22-26); ABG PCO2 67 mmHg (35-45); ABG PH 7.44 (7.35-7.45); ABG PO2 96 mmHg (80-105); ABG TCO2 48
[2021-08-22] MEDS: BALSAM PERU/CASTOR OIL 60 GM OINT...G. TP SCH (09:46)
[2021-08-22] MEDS ORDERED: MEROPENEM 500 MG VIAL ONE (13:04)
[2021-08-22] MEDS ORDERED: SODIUM CHLORIDE 0.9% 50ML 50 ML ONE (13:08)
[2021-08-23] VITALS (25 sets, daily range): BP systolic 89–176; BP diastolic 40–87
[2021-08-23] MEDS: PROPOFOL IV EMULSION 10MG/ML 100 ML IV SCH ×6 (00:20→18:30)
[2021-08-23 05:12] LABS: BASOPHILS # (AUTO) 0.1 (0.0-0.1); EOSINOPHILS # (AUTO) 0.1 (0.0-0.4); EOSINOPHILS % 1.6 % (0.0-6.0); HEMATOCRIT 26.3 % (38.2-49.6); LYMPHOCYTES # (AUTO) 1.5 (1.0-3.2); LYMPHOCYTES % 22.1 % (18.0-39.1); MEAN CORPUSCULAR HEMOGLOBIN 28.9 pg (28-32); MEAN CORPUSCULAR HGB CONC 30.4 g/dL (31-35); MEAN CORPUSCULAR VOLUME 94.9 fL (81-99); MONOCYTES # (AUTO) 0.6 (0.2-0.8); MONOCYTES % 9.1 % (4.4-11.3); NEUTROPHILS # (AUTO) 4.2 (2.1-6.9); NEUTROPHILS % 62.2 % (38.7-80.0); PLATELET COUNT 315 x10e3/uL (140-360); RED BLOOD COUNT 2.77 x10e6/uL (4.3-5.7); RED CELL DISTRIBUTION WIDTH 15.4 % (11.7-14.4)
[2021-08-23 05:44] LABS: ALBUMIN/GLOBULIN RATIO 0.4 (0.8-2.0); ANION GAP 11.4 mmol/L (8-16); CALCIUM 9.2 mg/dL (8.4-10.2); CREATININE, SERUM 0.52 mg/dL (0.72-1.25); POTASSIUM 4.4 mmol/L (3.5-5.1)
[2021-08-23] MEDS: INSULIN LISPRO 100 UNIT/1 ML 3ML VIAL SQ SCH ×3 (05:59→18:00)
[2021-08-23] MEDS: MEROPENEM 500 MG in SODIUM CHLORIDE 0.9% 50ML 50 ML IV SCH ×3 (05:59→21:07)
[2021-08-23 08:20] LABS: ABG HCO3 46 mmol/L (22-26); ABG PCO2 65 mmHg (35-45); ABG PH 7.46 (7.35-7.45); ABG PO2 98 mmHg (80-105); ABG TCO2 48
[2021-08-23] MEDS: INSULIN GLARGINE 100 UNITS/ML VIAL SQ SCH ×2 (08:58→20:03)
[2021-08-23] MEDS: ENOXAPARIN INJ 80 MG/0.8 ML SYR SC SCH ×2 (08:58→20:03)
[2021-08-23] MEDS: BALSAM PERU/CASTOR OIL 60 GM OINT...G. TP SCH (08:59)
[2021-08-23] MEDS: EYE LUBRICANT OPTH OINT 3.5GM TUBE OP SCH ×2 (08:59→18:29)
[2021-08-23] MEDS: LORAZEPAM INJ 2 MG/ML VIAL IV PRN ×4 (09:00→23:11)
[2021-08-23] MEDS: ACETAZOLAMIDE 250 MG TAB PO SCH ×2 (10:13→18:29)
[2021-08-23] MEDS: ALBUMIN 25% 25GM 100ML 0.25 GM/ML BTL IV SCH ×2 (11:11→13:29)
[2021-08-23] MEDS: FENTANYL 2000MCG/NS 250 250 ML IV SCH ×3 (13:46→15:11)
[2021-08-24] VITALS (23 sets, daily range): BP systolic 90–198; BP diastolic 47–92
[2021-08-24] MEDS: LORAZEPAM INJ 2 MG/ML VIAL IV PRN (02:19)
[2021-08-24] MEDS: PROPOFOL IV EMULSION 10MG/ML 100 ML IV SCH ×2 (02:19→22:37)
[2021-08-24 05:47] LABS: BASOPHILS # (AUTO) 0.1 (0.0-0.1); BASOPHILS % 0.8 % (0.0-1.0); EOSINOPHILS % 9.2 % (0.0-6.0); HEMATOCRIT 27.6 % (38.2-49.6); HEMOGLOBIN 8.8 g/dL (14.0-18.0); LYMPHOCYTES # (AUTO) 2.5 (1.0-3.2); LYMPHOCYTES % 23.8 % (18.0-39.1); MEAN CORPUSCULAR HEMOGLOBIN 29.2 pg (28-32); MEAN CORPUSCULAR HGB CONC 31.9 g/dL (31-35); MEAN CORPUSCULAR VOLUME 91.7 fL (81-99); MONOCYTES # (AUTO) 1.2 (0.2-0.8); MONOCYTES % 11.4 % (4.4-11.3); NEUTROPHILS # (AUTO) 5.4 (2.1-6.9); NEUTROPHILS % 51.4 % (38.7-80.0); PLATELET COUNT 389 x10e3/uL (140-360); RED BLOOD COUNT 3.01 x10e6/uL (4.3-5.7); RED CELL DISTRIBUTION WIDTH 16.3 % (11.7-14.4)
[2021-08-24] MEDS: MEROPENEM 500 MG in SODIUM CHLORIDE 0.9% 50ML 50 ML IV SCH ×3 (05:48→21:49)
[2021-08-24] MEDS: INSULIN LISPRO 100 UNIT/1 ML 3ML VIAL SQ SCH ×4 (05:49→17:15)
[2021-08-24 06:07] LABS: ALBUMIN 2.9 g/dL (3.5-5.0); ALBUMIN/GLOBULIN RATIO 0.5 (0.8-2.0); ANION GAP 14.1 mmol/L (8-16); CALCIUM 9.6 mg/dL (8.4-10.2); CREATININE, SERUM 0.55 mg/dL (0.72-1.25); POTASSIUM 4.1 mmol/L (3.5-5.1)
[2021-08-24 08:39] LABS: ABG HCO3 37 mmol/L (22-26); ABG PCO2 56 mmHg (35-45); ABG PH 7.43 (7.35-7.45); ABG PO2 117 mmHg (80-105); ABG TCO2 39
[2021-08-24] MEDS: BALSAM PERU/CASTOR OIL 60 GM OINT...G. TP SCH (09:56)
[2021-08-24] MEDS: ENOXAPARIN INJ 80 MG/0.8 ML SYR SC SCH ×2 (09:56→21:17)
[2021-08-24] MEDS: INSULIN GLARGINE 100 UNITS/ML VIAL SQ SCH ×2 (09:58→21:19)
[2021-08-24] MEDS: EYE LUBRICANT OPTH OINT 3.5GM TUBE OP SCH ×2 (10:00→17:11)
[2021-08-24] MEDS: FENTANYL 2000MCG/NS 250 250 ML IV SCH ×2 (12:11→22:36)
[2021-08-25] VITALS (24 sets, daily range): BP systolic 90–212; BP diastolic 41–95
[2021-08-25] MEDS: MEROPENEM 500 MG in SODIUM CHLORIDE 0.9% 50ML 50 ML IV SCH (05:32)
[2021-08-25 05:33] LABS: ALBUMIN 2.5 g/dL (3.5-5.0); ALBUMIN/GLOBULIN RATIO 0.5 (0.8-2.0); ANION GAP 12.3 mmol/L (8-16); CALCIUM 8.9 mg/dL (8.4-10.2); CREATININE, SERUM 0.54 mg/dL (0.72-1.25); POTASSIUM 4.3 mmol/L (3.5-5.1)
[2021-08-25] MEDS: PROPOFOL IV EMULSION 10MG/ML 100 ML IV SCH ×3 (05:34→22:31)
[2021-08-25 05:35] LABS: BASOPHILS # (AUTO) 0.1 (0.0-0.1); BASOPHILS % 1.1 % (0.0-1.0); EOSINOPHILS # (AUTO) 1.2 (0.0-0.4); EOSINOPHILS % 18.8 % (0.0-6.0); HEMATOCRIT 27.4 % (38.2-49.6); HEMOGLOBIN 8.4 g/dL (14.0-18.0); LYMPHOCYTES # (AUTO) 1.7 (1.0-3.2); LYMPHOCYTES % 28.5 % (18.0-39.1); MEAN CORPUSCULAR HEMOGLOBIN 29.6 pg (28-32); MEAN CORPUSCULAR HGB CONC 30.7 g/dL (31-35); MEAN CORPUSCULAR VOLUME 96.5 fL (81-99); MONOCYTES # (AUTO) 0.7 (0.2-0.8); MONOCYTES % 11.3 % (4.4-11.3); NEUTROPHILS # (AUTO) 2.4 (2.1-6.9); NEUTROPHILS % 39.2 % (38.7-80.0); PLATELET COUNT 362 x10e3/uL (140-360); RED BLOOD COUNT 2.84 x10e6/uL (4.3-5.7); RED CELL DISTRIBUTION WIDTH 16.2 % (11.7-14.4)
[2021-08-25] MEDS: INSULIN LISPRO 100 UNIT/1 ML 3ML VIAL SQ SCH ×4 (05:53→18:07)
[2021-08-25] MEDS: FENTANYL 2000MCG/NS 250 250 ML IV SCH ×2 (07:27→16:15)
[2021-08-25 07:59] LABS: ABG HCO3 34 mmol/L (22-26); ABG PCO2 56 mmHg (35-45); ABG PH 7.39 (7.35-7.45); ABG PO2 81 mmHg (80-105); ABG TCO2 36
[2021-08-25] MEDS: ENOXAPARIN INJ 80 MG/0.8 ML SYR SC SCH ×2 (08:23→20:54)
[2021-08-25] MEDS: BALSAM PERU/CASTOR OIL 60 GM OINT...G. TP SCH (08:24)
[2021-08-25] MEDS: EYE LUBRICANT OPTH OINT 3.5GM TUBE OP SCH ×2 (08:24→16:10)
[2021-08-25] MEDS: INSULIN GLARGINE 100 UNITS/ML VIAL SQ SCH ×2 (08:25→20:54)
[2021-08-25] MEDS: LORAZEPAM INJ 2 MG/ML VIAL IV PRN ×4 (14:43→21:30)
[2021-08-26] VITALS (25 sets, daily range): BP systolic 91–145; BP diastolic 5–85
[2021-08-26] MEDS: INSULIN LISPRO 100 UNIT/1 ML 3ML VIAL SQ SCH ×4 (00:07→17:58)
[2021-08-26] MEDS: FENTANYL 2000MCG/NS 250 250 ML IV SCH (05:02)
[2021-08-26 05:05] LABS: BASOPHILS # (AUTO) 0.1 (0.0-0.1); BASOPHILS % 0.9 % (0.0-1.0); EOSINOPHILS # (AUTO) 1.1 (0.0-0.4); EOSINOPHILS % 16.7 % (0.0-6.0); HEMOGLOBIN 8.1 g/dL (14.0-18.0); LYMPHOCYTES # (AUTO) 2.1 (1.0-3.2); LYMPHOCYTES % 31.9 % (18.0-39.1); MEAN CORPUSCULAR HEMOGLOBIN 28.5 pg (28-32); MEAN CORPUSCULAR VOLUME 95.1 fL (81-99); MONOCYTES # (AUTO) 0.6 (0.2-0.8); MONOCYTES % 9.5 % (4.4-11.3); NEUTROPHILS # (AUTO) 2.6 (2.1-6.9); NEUTROPHILS % 40.4 % (38.7-80.0); PLATELET COUNT 366 x10e3/uL (140-360); RED BLOOD COUNT 2.84 x10e6/uL (4.3-5.7); RED CELL DISTRIBUTION WIDTH 15.9 % (11.7-14.4)
[2021-08-26] MEDS: LORAZEPAM INJ 2 MG/ML VIAL IV PRN ×5 (05:05→20:09)
[2021-08-26] MEDS: PROPOFOL IV EMULSION 10MG/ML 100 ML IV SCH ×4 (05:05→23:00)
[2021-08-26 05:57] LABS: ALBUMIN 2.6 g/dL (3.5-5.0); ALBUMIN/GLOBULIN RATIO 0.5 (0.8-2.0); ANION GAP 11.4 mmol/L (8-16); CALCIUM 9.6 mg/dL (8.4-10.2); CREATININE, SERUM 0.52 mg/dL (0.72-1.25); POTASSIUM 4.4 mmol/L (3.5-5.1)
[2021-08-26] MEDS ORDERED: ACETAZOLAMIDE SODIUM 500 MG/VIAL IV ONE (06:00)
[2021-08-26] MEDS: BALSAM PERU/CASTOR OIL 60 GM OINT...G. TP SCH (08:24)
[2021-08-26] MEDS: ENOXAPARIN INJ 80 MG/0.8 ML SYR SC SCH ×2 (08:24→20:47)
[2021-08-26] MEDS: EYE LUBRICANT OPTH OINT 3.5GM TUBE OP SCH ×2 (08:24→17:10)
[2021-08-26] MEDS: INSULIN GLARGINE 100 UNITS/ML VIAL SQ SCH ×2 (08:25→20:47)
[2021-08-26] MEDS: ACETAMINOPHEN 325 MG/10 ML UDC NG PRN (11:27)
[2021-08-27] VITALS (23 sets, daily range): BP systolic 75–155; BP diastolic 36–82
[2021-08-27] MEDS: INSULIN LISPRO 100 UNIT/1 ML 3ML VIAL SQ SCH ×4 (00:11→18:04)
[2021-08-27] MEDS: PROPOFOL IV EMULSION 10MG/ML 100 ML IV SCH ×4 (04:00→23:10)
[2021-08-27 04:38] LABS: BASOPHILS # (AUTO) 0.1 (0.0-0.1); BASOPHILS % 1.1 % (0.0-1.0); EOSINOPHILS # (AUTO) 0.8 (0.0-0.4); EOSINOPHILS % 17.8 % (0.0-6.0); HEMATOCRIT 27.1 % (38.2-49.6); HEMOGLOBIN 8.4 g/dL (14.0-18.0); LYMPHOCYTES # (AUTO) 1.6 (1.0-3.2); LYMPHOCYTES % 33.6 % (18.0-39.1); MEAN CORPUSCULAR HEMOGLOBIN 29.2 pg (28-32); MEAN CORPUSCULAR VOLUME 94.1 fL (81-99); MONOCYTES # (AUTO) 0.6 (0.2-0.8); MONOCYTES % 11.8 % (4.4-11.3); NEUTROPHILS # (AUTO) 1.7 (2.1-6.9); NEUTROPHILS % 35.1 % (38.7-80.0); PLATELET COUNT 380 x10e3/uL (140-360); RED BLOOD COUNT 2.88 x10e6/uL (4.3-5.7); RED CELL DISTRIBUTION WIDTH 16.1 % (11.7-14.4)
[2021-08-27 04:59] LABS: ALBUMIN 2.6 g/dL (3.5-5.0); ALBUMIN/GLOBULIN RATIO 0.5 (0.8-2.0); ANION GAP 13.2 mmol/L (8-16); CALCIUM 9.5 mg/dL (8.4-10.2); CREATININE, SERUM 0.6 mg/dL (0.72-1.25); POTASSIUM 4.2 mmol/L (3.5-5.1)
[2021-08-27] MEDS: LORAZEPAM INJ 2 MG/ML VIAL IV PRN ×3 (06:49→19:30)
[2021-08-27 07:22] LABS: ABG PH 7.31 (7.35-7.45)
[2021-08-27 07:23] LABS: ABG HCO3 38 mmol/L (22-26); ABG PCO2 75 mmHg (35-45); ABG PO2 182 mmHg (80-105); ABG TCO2 40
[2021-08-27] MEDS: ENOXAPARIN INJ 80 MG/0.8 ML SYR SC SCH ×2 (09:04→21:24)
[2021-08-27] MEDS: EYE LUBRICANT OPTH OINT 3.5GM TUBE OP SCH ×2 (09:04→17:57)
[2021-08-27] MEDS: INSULIN GLARGINE 100 UNITS/ML VIAL SQ SCH ×2 (09:05→21:25)
[2021-08-27] MEDS: BALSAM PERU/CASTOR OIL 60 GM OINT...G. TP SCH (09:05)
[2021-08-27] MEDS: ACETAMINOPHEN 325 MG/10 ML UDC NG PRN ×2 (12:04→14:20)
[2021-08-27] MEDS ORDERED: LORAZEPAM INJ 2 MG/ML VIAL ONE (14:26)
[2021-08-27] MEDS: FENTANYL 2000MCG/NS 250 250 ML IV SCH (21:36)
[2021-08-28] VITALS (24 sets, daily range): BP systolic 90–160; BP diastolic 43–76
[2021-08-28] MEDS: LORAZEPAM INJ 2 MG/ML VIAL IV PRN ×5 (02:04→23:08)
[2021-08-28 04:44] LABS: BASOPHILS # (AUTO) 0.1 (0.0-0.1); EOSINOPHILS # (AUTO) 0.9 (0.0-0.4); EOSINOPHILS % 12.5 % (0.0-6.0); HEMATOCRIT 29.3 % (38.2-49.6); HEMOGLOBIN 8.8 g/dL (14.0-18.0); LYMPHOCYTES # (AUTO) 1.8 (1.0-3.2); MEAN CORPUSCULAR HEMOGLOBIN 28.7 pg (28-32); MEAN CORPUSCULAR VOLUME 95.4 fL (81-99); MONOCYTES # (AUTO) 0.6 (0.2-0.8); MONOCYTES % 7.9 % (4.4-11.3); NEUTROPHILS % 54.3 % (38.7-80.0); PLATELET COUNT 398 x10e3/uL (140-360); RED BLOOD COUNT 3.07 x10e6/uL (4.3-5.7); RED CELL DISTRIBUTION WIDTH 16.2 % (11.7-14.4)
[2021-08-28 05:06] LABS: ALBUMIN 2.7 g/dL (3.5-5.0); ALBUMIN/GLOBULIN RATIO 0.5 (0.8-2.0); ANION GAP 13.6 mmol/L (8-16); CALCIUM 9.6 mg/dL (8.4-10.2); CREATININE, SERUM 0.55 mg/dL (0.72-1.25); POTASSIUM 4.6 mmol/L (3.5-5.1)
[2021-08-28] MEDS: PROPOFOL IV EMULSION 10MG/ML 100 ML IV SCH ×4 (05:10→20:55)
[2021-08-28] MEDS: INSULIN LISPRO 100 UNIT/1 ML 3ML VIAL SQ SCH ×5 (06:19→23:53)
[2021-08-28] MEDS: EYE LUBRICANT OPTH OINT 3.5GM TUBE OP SCH ×2 (07:37→16:19)
[2021-08-28] MEDS: BALSAM PERU/CASTOR OIL 60 GM OINT...G. TP SCH (07:37)
[2021-08-28] MEDS: ENOXAPARIN INJ 80 MG/0.8 ML SYR SC SCH ×2 (08:09→20:56)
[2021-08-28] MEDS: INSULIN GLARGINE 100 UNITS/ML VIAL SQ SCH ×2 (08:14→21:02)
[2021-08-28] MEDS: FENTANYL 2000MCG/NS 250 250 ML IV SCH (16:15)
[2021-08-29] VITALS (23 sets, daily range): BP systolic 95–136; BP diastolic 44–76
[2021-08-29] MEDS: PROPOFOL IV EMULSION 10MG/ML 100 ML IV SCH ×5 (02:59→21:00)
[2021-08-29] MEDS: ACETAMINOPHEN 325 MG/10 ML UDC NG PRN (03:00)
[2021-08-29] MEDS: FENTANYL 2000MCG/NS 250 250 ML IV SCH ×2 (03:02→20:17)
[2021-08-29] MEDS: LORAZEPAM INJ 2 MG/ML VIAL IV PRN ×2 (03:20→06:50)
[2021-08-29] MEDS: INSULIN LISPRO 100 UNIT/1 ML 3ML VIAL SQ SCH ×4 (06:00→23:40)
[2021-08-29 06:04] LABS: BASOPHILS # (AUTO) 0.1 (0.0-0.1); BASOPHILS % 0.7 % (0.0-1.0); EOSINOPHILS # (AUTO) 0.6 (0.0-0.4); EOSINOPHILS % 3.6 % (0.0-6.0); HEMATOCRIT 28.2 % (38.2-49.6); HEMOGLOBIN 8.8 g/dL (14.0-18.0); LYMPHOCYTES # (AUTO) 1.2 (1.0-3.2); LYMPHOCYTES % 7.2 % (18.0-39.1); MEAN CORPUSCULAR HEMOGLOBIN 28.9 pg (28-32); MEAN CORPUSCULAR HGB CONC 31.2 g/dL (31-35); MEAN CORPUSCULAR VOLUME 92.8 fL (81-99); MONOCYTES % 6.3 % (4.4-11.3); NEUTROPHILS # (AUTO) 13.4 (2.1-6.9); NEUTROPHILS % 81.8 % (38.7-80.0); PLATELET COUNT 405 x10e3/uL (140-360); RED BLOOD COUNT 3.04 x10e6/uL (4.3-5.7)
[2021-08-29 06:53] LABS: ABG PH 7.31 (7.35-7.45)
[2021-08-29 06:54] LABS: ABG HCO3 40 mmol/L (22-26); ABG PCO2 80 mmHg (35-45); ABG PO2 95 mmHg (80-105); ABG TCO2 43
[2021-08-29 07:08] LABS: ALBUMIN 2.5 g/dL (3.5-5.0); ALBUMIN/GLOBULIN RATIO 0.4 (0.8-2.0); ANION GAP 15.1 mmol/L (8-16); CALCIUM 9.6 mg/dL (8.4-10.2); CREATININE, SERUM 0.62 mg/dL (0.72-1.25); POTASSIUM 5.1 mmol/L (3.5-5.1)
[2021-08-29] MEDS: BALSAM PERU/CASTOR OIL 60 GM OINT...G. TP SCH (07:57)
[2021-08-29] MEDS: EYE LUBRICANT OPTH OINT 3.5GM TUBE OP SCH ×2 (07:57→16:04)
[2021-08-29] MEDS: ENOXAPARIN INJ 80 MG/0.8 ML SYR SC SCH ×2 (07:58→20:43)
[2021-08-29] MEDS: INSULIN GLARGINE 100 UNITS/ML VIAL SQ SCH ×2 (08:01→20:51)
[2021-08-29] MEDS ORDERED: ACETAMINOPHEN 1000 MG/100 ML IV PRN (08:30)
[2021-08-29] MEDS ORDERED: Vancomycin IV 1 GM in SODIUM CHLORIDE 0.9% 250ML 250 ML IV ONE (08:45)
[2021-08-29] MEDS ORDERED: SODIUM CHLORIDE 0.45% 1,000 ML IV ONE (09:00)
[2021-08-29] MEDS: MEROPENEM 1 GM in SODIUM CHLORIDE 0.9% 100 ML IV SCH ×3 (09:18→23:48)
[2021-08-29 10:21] LABS: BACTERIA,URINE MANY /HPF; CLARITY,URINE CLOUDY (CLEAR); COLOR,URINE YELLOW (YELLOW); EPITHELIAL CELLS,URINE FEW /LPF; KETONES,URINE NEGATIVE (NEGATIVE); LEUKOCYTE ESTERASE ,URINE NEGATIVE (NEGATIVE); NITRITE,URINE NEGATIVE (NEGATIVE); PROTEIN,URINE DIPSTICK 1+ (NEGATIVE); RBC,URINE >50 /HPF (0-5); URINE UROBILINOGEN 0.2 mg/dL (0.2 - 1); WBC,URINE (MAN) 0-5 /HPF (0-5)
[2021-08-29] MEDS ORDERED: LACTATED RINGER'S 1,000 ML INJ SCH (19:45)
[2021-08-29] MEDS: NOREPINEPHRINE 8 MG/D5W 250 ML 250 ML IV SCH ×2 (19:45→22:00)
[2021-08-29] MEDS ORDERED: SODIUM CHLORIDE 0.9% 200 ML ONE (23:29)
[2021-08-29] MEDS ORDERED: MEROPENEM 1 GM VIAL ONE (23:31)
[2021-08-30] VITALS (25 sets, daily range): BP systolic 104–148; BP diastolic 45–58
[2021-08-30] MEDS: PROPOFOL IV EMULSION 10MG/ML 100 ML IV SCH ×5 (02:09→21:10)
[2021-08-30] MEDS: NOREPINEPHRINE 8 MG/D5W 250 ML 250 ML IV SCH (02:20)
[2021-08-30 05:47] LABS: BASOPHILS # (AUTO) 0.1 (0.0-0.1); BASOPHILS % 0.4 % (0.0-1.0); EOSINOPHILS # (AUTO) 0.1 (0.0-0.4); EOSINOPHILS % 0.4 % (0.0-6.0); HEMATOCRIT 29.4 % (38.2-49.6); HEMOGLOBIN 8.5 g/dL (14.0-18.0); LYMPHOCYTES # (AUTO) 1.4 (1.0-3.2); LYMPHOCYTES % 10.1 % (18.0-39.1); MEAN CORPUSCULAR HEMOGLOBIN 28.5 pg (28-32); MEAN CORPUSCULAR HGB CONC 28.9 g/dL (31-35); MEAN CORPUSCULAR VOLUME 98.7 fL (81-99); MONOCYTES # (AUTO) 1.1 (0.2-0.8); MONOCYTES % 7.8 % (4.4-11.3); NEUTROPHILS # (AUTO) 11.5 (2.1-6.9); NEUTROPHILS % 80.3 % (38.7-80.0); PLATELET COUNT 336 x10e3/uL (140-360); RED BLOOD COUNT 2.98 x10e6/uL (4.3-5.7); RED CELL DISTRIBUTION WIDTH 15.7 % (11.7-14.4)
[2021-08-30 06:04] LABS: ALBUMIN 2.3 g/dL (3.5-5.0); ALBUMIN/GLOBULIN RATIO 0.4 (0.8-2.0); ANION GAP 12.1 mmol/L (8-16); CALCIUM 9.8 mg/dL (8.4-10.2); CREATININE, SERUM 0.61 mg/dL (0.72-1.25)
[2021-08-30] MEDS: INSULIN LISPRO 100 UNIT/1 ML 3ML VIAL SQ SCH ×4 (06:10→23:32)
[2021-08-30 06:14] LABS: POTASSIUM 6.1 mmol/L (3.5-5.1)
[2021-08-30] MEDS: BALSAM PERU/CASTOR OIL 60 GM OINT...G. TP SCH (08:01)
[2021-08-30] MEDS: ENOXAPARIN INJ 80 MG/0.8 ML SYR SC SCH ×2 (08:01→21:09)
[2021-08-30] MEDS: EYE LUBRICANT OPTH OINT 3.5GM TUBE OP SCH ×2 (08:01→16:22)
[2021-08-30] MEDS: MEROPENEM 1 GM in SODIUM CHLORIDE 0.9% 100 ML IV SCH ×3 (08:01→23:35)
[2021-08-30] MEDS: INSULIN GLARGINE 100 UNITS/ML VIAL SQ SCH ×2 (08:02→21:49)
[2021-08-30] MEDS ORDERED: SOD POLYSTYRENE SULFONATE SUSP 15 GM/60 ML BTL PO ONE (08:15)
[2021-08-30] MEDS ORDERED: FUROSEMIDE INJ 10 MG/ML 4 ML VIAL IV ONE (12:15)
[2021-08-30] MEDS ORDERED: ACETAZOLAMIDE SODIUM 500 MG/VIAL IV ONE (13:00)
[2021-08-30 14:07] LABS: ABG HCO3 45 mmol/L (22-26); ABG PCO2 121 mmHg (35-45); ABG PH 7.18 (7.35-7.45); ABG PO2 95 mmHg (80-105); ABG TCO2 49
[2021-08-30] MEDS: FENTANYL 2000MCG/NS 250 250 ML IV SCH (16:40)
[2021-08-30 16:41] LABS: ABG PCO2 98 mmHg (35-45); ABG PH 7.28 (7.35-7.45)
[2021-08-30 16:42] LABS: ABG HCO3 46 mmol/L (22-26); ABG PO2 101 mmHg (80-105); ABG TCO2 49
[2021-08-30] MEDS: LORAZEPAM INJ 2 MG/ML VIAL IV PRN (21:09)
[2021-08-30] MEDS: ACETAMINOPHEN 325 MG/10 ML UDC NG PRN (22:11)
[2021-08-31] VITALS (23 sets, daily range): BP systolic 110–177; BP diastolic 40–67
[2021-08-31] MEDS: PROPOFOL IV EMULSION 10MG/ML 100 ML IV SCH ×5 (00:32→20:27)
[2021-08-31 05:05] LABS: BASOPHILS # (AUTO) 0.1 (0.0-0.1); BASOPHILS % 0.6 % (0.0-1.0); EOSINOPHILS # (AUTO) 0.1 (0.0-0.4); EOSINOPHILS % 0.8 % (0.0-6.0); HEMATOCRIT 26.9 % (38.2-49.6); LYMPHOCYTES # (AUTO) 1.8 (1.0-3.2); LYMPHOCYTES % 12.6 % (18.0-39.1); MEAN CORPUSCULAR HEMOGLOBIN 30.1 pg (28-32); MEAN CORPUSCULAR HGB CONC 29.7 g/dL (31-35); MEAN CORPUSCULAR VOLUME 101.1 fL (81-99); MONOCYTES # (AUTO) 1.1 (0.2-0.8); MONOCYTES % 7.8 % (4.4-11.3); NEUTROPHILS # (AUTO) 10.7 (2.1-6.9); NEUTROPHILS % 77.2 % (38.7-80.0); PLATELET COUNT 396 x10e3/uL (140-360); RED BLOOD COUNT 2.66 x10e6/uL (4.3-5.7); RED CELL DISTRIBUTION WIDTH 15.9 % (11.7-14.4)
[2021-08-31] MEDS: INSULIN LISPRO 100 UNIT/1 ML 3ML VIAL SQ SCH ×3 (05:15→18:07)
[2021-08-31 06:11] LABS: ALBUMIN 2.2 g/dL (3.5-5.0); ALBUMIN/GLOBULIN RATIO 0.3 (0.8-2.0); CREATININE, SERUM 0.59 mg/dL (0.72-1.25)
[2021-08-31 06:16] LABS: CALCIUM 9.8 mg/dL (8.4-10.2)
[2021-08-31] MEDS: MEROPENEM 1 GM in SODIUM CHLORIDE 0.9% 100 ML IV SCH ×3 (07:50→23:44)
[2021-08-31] MEDS: EYE LUBRICANT OPTH OINT 3.5GM TUBE OP SCH ×2 (08:01→16:32)
[2021-08-31] MEDS: BALSAM PERU/CASTOR OIL 60 GM OINT...G. TP SCH (08:01)
[2021-08-31] MEDS: ENOXAPARIN INJ 80 MG/0.8 ML SYR SC SCH ×2 (08:01→20:27)
[2021-08-31] MEDS: INSULIN GLARGINE 100 UNITS/ML VIAL SQ SCH ×2 (08:02→20:34)
[2021-08-31] MEDS ORDERED: MAGNESIUM HYDROXIDE 30 ML UDC PO PRN (12:00)
[2021-08-31] MEDS: FENTANYL 2000MCG/NS 250 250 ML IV SCH (12:06)
[2021-08-31] MEDS ORDERED: BISACODYL 10 MG SUPP PR ONE (12:30)
[2021-08-31 13:01] LABS: ABG PH 7.27 (7.35-7.45)
[2021-08-31 13:02] LABS: ABG HCO3 48 mmol/L (22-26); ABG PCO2 105 mmHg (35-45); ABG PO2 110 mmHg (80-105); ABG TCO2 50
[2021-08-31] MEDS: LORAZEPAM INJ 2 MG/ML VIAL IV PRN (22:22)
[2021-09-01] VITALS (25 sets, daily range): BP systolic 113–184; BP diastolic 54–80
[2021-09-01] MEDS: INSULIN LISPRO 100 UNIT/1 ML 3ML VIAL SQ SCH ×5 (00:04→23:47)
[2021-09-01 05:09] LABS: BASOPHILS # (AUTO) 0.1 (0.0-0.1); BASOPHILS % 1.4 % (0.0-1.0); EOSINOPHILS # (AUTO) 0.5 (0.0-0.4); EOSINOPHILS % 6.3 % (0.0-6.0); HEMATOCRIT 26.4 % (38.2-49.6); HEMOGLOBIN 7.5 g/dL (14.0-18.0); LYMPHOCYTES # (AUTO) 1.6 (1.0-3.2); MEAN CORPUSCULAR HEMOGLOBIN 28.6 pg (28-32); MEAN CORPUSCULAR HGB CONC 28.4 g/dL (31-35); MEAN CORPUSCULAR VOLUME 100.8 fL (81-99); MONOCYTES # (AUTO) 0.8 (0.2-0.8); MONOCYTES % 9.8 % (4.4-11.3); NEUTROPHILS # (AUTO) 4.9 (2.1-6.9); NEUTROPHILS % 61.9 % (38.7-80.0); PLATELET COUNT 430 x10e3/uL (140-360); RED BLOOD COUNT 2.62 x10e6/uL (4.3-5.7); RED CELL DISTRIBUTION WIDTH 15.9 % (11.7-14.4)
[2021-09-01 05:23] LABS: ALBUMIN 2.1 g/dL (3.5-5.0); ALBUMIN/GLOBULIN RATIO 0.4 (0.8-2.0); ANION GAP 10.1 mmol/L (8-16); CALCIUM 9.8 mg/dL (8.4-10.2); CREATININE, SERUM 0.5 mg/dL (0.72-1.25); POTASSIUM 4.1 mmol/L (3.5-5.1)
[2021-09-01] MEDS: LORAZEPAM INJ 2 MG/ML VIAL IV PRN ×3 (06:14→19:34)
[2021-09-01] MEDS: PROPOFOL IV EMULSION 10MG/ML 100 ML IV SCH ×6 (06:15→22:57)
[2021-09-01 08:06] LABS: EOSINOPHILS % (MANUAL) 8 % (0-7); LYMPHOCYTES % (MANUAL) 12 % (19-48); MONOCYTES % (MANUAL) 6 % (3.4-9.0); NEUTROPHILS % (MANUAL) 73 % (40-74)
[2021-09-01 08:07] LABS: PLATELET ESTIMATE ADEQUATE; PLATELET MORPHOLOGY COMMENT NORMAL; RBC MORPHOLOGY COMMENT NORMAL
[2021-09-01] MEDS: MEROPENEM 1 GM in SODIUM CHLORIDE 0.9% 100 ML IV SCH ×3 (08:25→23:37)
[2021-09-01] MEDS: ENOXAPARIN INJ 80 MG/0.8 ML SYR SC SCH ×2 (08:26→19:35)
[2021-09-01] MEDS: BALSAM PERU/CASTOR OIL 60 GM OINT...G. TP SCH (08:26)
[2021-09-01] MEDS: EYE LUBRICANT OPTH OINT 3.5GM TUBE OP SCH ×2 (08:26→17:08)
[2021-09-01 09:51] LABS: ABG PH 7.37 (7.35-7.45)
[2021-09-01 09:52] LABS: ABG HCO3 49 mmol/L (22-26); ABG PCO2 84 mmHg (35-45); ABG PO2 92 mmHg (80-105); ABG TCO2 50
[2021-09-01] MEDS: FENTANYL 2000MCG/NS 250 250 ML IV SCH (11:20)
[2021-09-01] MEDS ORDERED: DEXTROSE 5% 1,000 ML IV ONE (12:00)
[2021-09-01] MEDS: SENNA-S TABLET PO SCH (12:12)
[2021-09-02] VITALS (25 sets, daily range): BP systolic 112–184; BP diastolic 54–97
[2021-09-02] MEDS: PROPOFOL IV EMULSION 10MG/ML 100 ML IV SCH ×7 (02:27→23:19)
[2021-09-02 04:35] LABS: BASOPHILS # (AUTO) 0.1 (0.0-0.1); BASOPHILS % 1.1 % (0.0-1.0); EOSINOPHILS # (AUTO) 0.7 (0.0-0.4); HEMATOCRIT 27.6 % (38.2-49.6); HEMOGLOBIN 8.1 g/dL (14.0-18.0); LYMPHOCYTES # (AUTO) 1.9 (1.0-3.2); LYMPHOCYTES % 21.1 % (18.0-39.1); MEAN CORPUSCULAR HEMOGLOBIN 28.6 pg (28-32); MEAN CORPUSCULAR HGB CONC 29.3 g/dL (31-35); MEAN CORPUSCULAR VOLUME 97.5 fL (81-99); MONOCYTES # (AUTO) 0.8 (0.2-0.8); MONOCYTES % 8.3 % (4.4-11.3); NEUTROPHILS # (AUTO) 5.6 (2.1-6.9); NEUTROPHILS % 60.5 % (38.7-80.0); PLATELET COUNT 459 x10e3/uL (140-360); RED BLOOD COUNT 2.83 x10e6/uL (4.3-5.7); RED CELL DISTRIBUTION WIDTH 15.9 % (11.7-14.4)
[2021-09-02 04:56] LABS: ALBUMIN 2.2 g/dL (3.5-5.0); ALBUMIN/GLOBULIN RATIO 0.4 (0.8-2.0); ANION GAP 13.5 mmol/L (8-16); CALCIUM 9.4 mg/dL (8.4-10.2); CREATININE, SERUM 0.5 mg/dL (0.72-1.25); POTASSIUM 4.5 mmol/L (3.5-5.1)
[2021-09-02] MEDS: LORAZEPAM INJ 2 MG/ML VIAL IV PRN ×4 (05:04→22:40)
[2021-09-02] MEDS: FENTANYL 2000MCG/NS 250 250 ML IV SCH (05:08)
[2021-09-02] MEDS: INSULIN LISPRO 100 UNIT/1 ML 3ML VIAL SQ SCH ×4 (06:02→23:00)
[2021-09-02] MEDS: MEROPENEM 1 GM in SODIUM CHLORIDE 0.9% 100 ML IV SCH (08:28)
[2021-09-02] MEDS: ENOXAPARIN INJ 80 MG/0.8 ML SYR SC SCH ×2 (08:28→20:56)
[2021-09-02] MEDS: SENNA-S TABLET PO SCH (08:28)
[2021-09-02] MEDS: BALSAM PERU/CASTOR OIL 60 GM OINT...G. TP SCH (08:28)
[2021-09-02] MEDS: EYE LUBRICANT OPTH OINT 3.5GM TUBE OP SCH ×2 (08:28→17:13)
[2021-09-02] MEDS: HYDRALAZINE HCL 20 MG/ML VIAL IV PRN (22:16)
[2021-09-03] VITALS (29 sets, daily range): BP systolic 97–183; BP diastolic 52–105
[2021-09-03] MEDS: LORAZEPAM INJ 2 MG/ML VIAL IV PRN ×6 (01:00→23:20)
[2021-09-03] MEDS: FENTANYL 2000MCG/NS 250 250 ML IV SCH (01:03)
[2021-09-03] MEDS ORDERED: LORAZEPAM INJ 2 MG/ML VIAL IV ONE (01:30)
[2021-09-03] MEDS: PROPOFOL IV EMULSION 10MG/ML 100 ML IV SCH ×5 (03:40→21:43)
[2021-09-03] MEDS: INSULIN LISPRO 100 UNIT/1 ML 3ML VIAL SQ SCH ×4 (05:09→23:32)
[2021-09-03] MEDS: HYDRALAZINE HCL 20 MG/ML VIAL IV PRN (05:19)
[2021-09-03 05:40] LABS: BASOPHILS # (AUTO) 0.1 (0.0-0.1); BASOPHILS % 1.1 % (0.0-1.0); EOSINOPHILS # (AUTO) 0.3 (0.0-0.4); EOSINOPHILS % 4.6 % (0.0-6.0); HEMATOCRIT 28.7 % (38.2-49.6); HEMOGLOBIN 8.6 g/dL (14.0-18.0); LYMPHOCYTES # (AUTO) 1.2 (1.0-3.2); MEAN CORPUSCULAR HEMOGLOBIN 29.3 pg (28-32); MEAN CORPUSCULAR VOLUME 97.6 fL (81-99); MONOCYTES # (AUTO) 0.5 (0.2-0.8); MONOCYTES % 9.2 % (4.4-11.3); NEUTROPHILS # (AUTO) 3.3 (2.1-6.9); NEUTROPHILS % 60.1 % (38.7-80.0); PLATELET COUNT 416 x10e3/uL (140-360); RED BLOOD COUNT 2.94 x10e6/uL (4.3-5.7); RED CELL DISTRIBUTION WIDTH 16.1 % (11.7-14.4)
[2021-09-03 06:36] LABS: ALBUMIN 2.2 g/dL (3.5-5.0); ALBUMIN/GLOBULIN RATIO 0.3 (0.8-2.0); ANION GAP 18.3 mmol/L (8-16); CALCIUM 9.5 mg/dL (8.4-10.2); CREATININE, SERUM 0.54 mg/dL (0.72-1.25); POTASSIUM 5.3 mmol/L (3.5-5.1)
[2021-09-03] MEDS: SENNA-S TABLET PO SCH (09:44)
[2021-09-03] MEDS: ENOXAPARIN INJ 80 MG/0.8 ML SYR SC SCH ×2 (09:44→20:43)
[2021-09-03] MEDS: EYE LUBRICANT OPTH OINT 3.5GM TUBE OP SCH ×2 (09:44→17:41)
[2021-09-03] MEDS: BALSAM PERU/CASTOR OIL 60 GM OINT...G. TP SCH (09:44)
[2021-09-03] MEDS ORDERED: FUROSEMIDE INJ 10 MG/ML 2 ML VIAL IV ONE (11:00)
[2021-09-03] MEDS ORDERED: PROPOFOL IV EMULSION 10MG/ML 100 ML IV SCH (14:15)
[2021-09-03 18:02] LABS: ANION GAP 15.7 mmol/L (8-16); CALCIUM 9.2 mg/dL (8.4-10.2); CREATININE, SERUM 0.5 mg/dL (0.72-1.25); POTASSIUM 4.7 mmol/L (3.5-5.1)
[2021-09-04] VITALS (28 sets, daily range): BP systolic 97–199; BP diastolic 49–84
[2021-09-04] MEDS: FENTANYL 2000MCG/NS 250 250 ML IV SCH ×3 (00:48→17:34)
[2021-09-04] MEDS: LORAZEPAM INJ 2 MG/ML VIAL IV PRN ×4 (01:17→21:36)
[2021-09-04] MEDS: PROPOFOL IV EMULSION 10MG/ML 100 ML IV SCH ×6 (02:01→21:35)
[2021-09-04 05:14] LABS: BASOPHILS # (AUTO) 0.1 (0.0-0.1); BASOPHILS % 1.1 % (0.0-1.0); EOSINOPHILS # (AUTO) 0.5 (0.0-0.4); EOSINOPHILS % 8.5 % (0.0-6.0); HEMATOCRIT 26.3 % (38.2-49.6); LYMPHOCYTES # (AUTO) 0.7 (1.0-3.2); LYMPHOCYTES % 12.6 % (18.0-39.1); MEAN CORPUSCULAR HEMOGLOBIN 29.3 pg (28-32); MEAN CORPUSCULAR HGB CONC 30.4 g/dL (31-35); MEAN CORPUSCULAR VOLUME 96.3 fL (81-99); MONOCYTES # (AUTO) 0.5 (0.2-0.8); MONOCYTES % 9.6 % (4.4-11.3); NEUTROPHILS # (AUTO) 3.6 (2.1-6.9); NEUTROPHILS % 65.3 % (38.7-80.0); PLATELET COUNT 339 x10e3/uL (140-360); RED BLOOD COUNT 2.73 x10e6/uL (4.3-5.7); RED CELL DISTRIBUTION WIDTH 16.6 % (11.7-14.4)
[2021-09-04] MEDS: INSULIN LISPRO 100 UNIT/1 ML 3ML VIAL SQ SCH ×4 (05:40→23:47)
[2021-09-04 06:08] LABS: ALBUMIN 2.2 g/dL (3.5-5.0); ALBUMIN/GLOBULIN RATIO 0.4 (0.8-2.0); ANION GAP 14.4 mmol/L (8-16); CALCIUM 9.4 mg/dL (8.4-10.2); POTASSIUM 5.4 mmol/L (3.5-5.1)
[2021-09-04 06:37] LABS: CREATININE, SERUM 0.51 mg/dL (0.72-1.25)
[2021-09-04 08:01] LABS: ABG PH 7.41 (7.35-7.45)
[2021-09-04 08:02] LABS: ABG HCO3 51 mmol/L (22-26); ABG PCO2 79 mmHg (35-45); ABG PO2 88 mmHg (80-105)
[2021-09-04 08:03] LABS: ABG TCO2 50
[2021-09-04] MEDS: EYE LUBRICANT OPTH OINT 3.5GM TUBE OP SCH ×2 (08:03→17:20)
[2021-09-04] MEDS: SENNA-S TABLET PO SCH (08:03)
[2021-09-04] MEDS: BALSAM PERU/CASTOR OIL 60 GM OINT...G. TP SCH (08:03)
[2021-09-04] MEDS: ENOXAPARIN INJ 80 MG/0.8 ML SYR SC SCH ×2 (08:03→20:09)
[2021-09-04] MEDS ORDERED: SODIUM CHLORIDE 0.45% 500 ML IV ONE (10:00)
[2021-09-04] MEDS ORDERED: LORAZEPAM INJ 2 MG/ML VIAL IV PRN (10:00)
[2021-09-04] MEDS ORDERED: SOD POLYSTYRENE SULFONATE SUSP 15 GM/60 ML BTL PO ONE (10:30)
[2021-09-05] VITALS (37 sets, daily range): BP systolic 83–187; BP diastolic 42–76
[2021-09-05] MEDS: PROPOFOL IV EMULSION 10MG/ML 100 ML IV SCH ×6 (00:30→20:22)
[2021-09-05] MEDS: INSULIN LISPRO 100 UNIT/1 ML 3ML VIAL SQ SCH ×4 (05:19→23:52)
[2021-09-05 05:29] LABS: BASOPHILS % 0.9 % (0.0-1.0); EOSINOPHILS # (AUTO) 0.2 (0.0-0.4); EOSINOPHILS % 5.2 % (0.0-6.0); HEMATOCRIT 25.3 % (38.2-49.6); LYMPHOCYTES # (AUTO) 0.4 (1.0-3.2); LYMPHOCYTES % 10.2 % (18.0-39.1); MEAN CORPUSCULAR HEMOGLOBIN 29.9 pg (28-32); MEAN CORPUSCULAR HGB CONC 31.6 g/dL (31-35); MEAN CORPUSCULAR VOLUME 94.4 fL (81-99); MONOCYTES # (AUTO) 0.2 (0.2-0.8); MONOCYTES % 3.6 % (4.4-11.3); NEUTROPHILS # (AUTO) 3.3 (2.1-6.9); NEUTROPHILS % 77.5 % (38.7-80.0); PLATELET COUNT 276 x10e3/uL (140-360); RED BLOOD COUNT 2.68 x10e6/uL (4.3-5.7); RED CELL DISTRIBUTION WIDTH 16.6 % (11.7-14.4)
[2021-09-05] MEDS: LORAZEPAM INJ 2 MG/ML VIAL IV PRN ×4 (05:57→18:29)
[2021-09-05 06:02] LABS: ALBUMIN 2.1 g/dL (3.5-5.0); ALBUMIN/GLOBULIN RATIO 0.4 (0.8-2.0); ANION GAP 12.3 mmol/L (8-16); CALCIUM 8.9 mg/dL (8.4-10.2); CREATININE, SERUM 0.5 mg/dL (0.72-1.25); POTASSIUM 4.3 mmol/L (3.5-5.1)
[2021-09-05] MEDS: SENNA-S TABLET PO SCH (08:17)
[2021-09-05] MEDS: EYE LUBRICANT OPTH OINT 3.5GM TUBE OP SCH ×2 (08:17→16:56)
[2021-09-05] MEDS: BALSAM PERU/CASTOR OIL 60 GM OINT...G. TP SCH (08:17)
[2021-09-05] MEDS: ENOXAPARIN INJ 80 MG/0.8 ML SYR SC SCH ×2 (08:17→20:22)
[2021-09-05 09:29] LABS: BAND NEUTROPHILS % (MANUAL) 24 %; EOSINOPHILS % (MANUAL) 4 % (0-7); LYMPHOCYTES % (MANUAL) 11 % (19-48); METAMYELOCYTES % (MANUAL) 3 % (0-0); MONOCYTES % (MANUAL) 3 % (3.4-9.0); MYELOCYTES % (MANUAL) 1 % (0-0); NEUTROPHILS % (MANUAL) 54 % (40-74); NUCLEATED RED BLOOD CELLS 2
[2021-09-05 09:30] LABS: PLATELET ESTIMATE ADEQUATE; PLATELET MORPHOLOGY COMMENT NORMAL; RBC MORPHOLOGY COMMENT NORMAL
[2021-09-05] MEDS ORDERED: ACETAMINOPHEN 1000 MG/100 ML IV ONE (13:45)
[2021-09-05] MEDS: SODIUM CHLORIDE 0.9% 1000ML 1,000 ML IV SCH ×2 (14:51→18:45)
[2021-09-05] MEDS: NOREPINEPHRINE 8 MG/D5W 250 ML 250 ML IV SCH ×4 (14:59→18:35)
[2021-09-05] MEDS: FENTANYL 2000MCG/NS 250 250 ML IV SCH (15:32)
[2021-09-06] VITALS (61 sets, daily range): BP systolic 81–197; BP diastolic 42–76
[2021-09-06] MEDS: PROPOFOL IV EMULSION 10MG/ML 100 ML IV SCH ×4 (00:22→21:00)
[2021-09-06] MEDS: NOREPINEPHRINE 8 MG/D5W 250 ML 250 ML IV SCH ×2 (01:25→11:26)
[2021-09-06] MEDS: LORAZEPAM INJ 2 MG/ML VIAL IV PRN ×2 (04:00→11:21)
[2021-09-06] MEDS: INSULIN LISPRO 100 UNIT/1 ML 3ML VIAL SQ SCH ×3 (05:42→17:37)
[2021-09-06 06:09] LABS: BASOPHILS # (AUTO) 0.1 (0.0-0.1); BASOPHILS % 0.6 % (0.0-1.0); EOSINOPHILS # (AUTO) 0.1 (0.0-0.4); HEMATOCRIT 24.2 % (38.2-49.6); HEMOGLOBIN 7.5 g/dL (14.0-18.0); LYMPHOCYTES # (AUTO) 0.6 (1.0-3.2); LYMPHOCYTES % 6.5 % (18.0-39.1); MEAN CORPUSCULAR HEMOGLOBIN 29.8 pg (28-32); MONOCYTES # (AUTO) 0.6 (0.2-0.8); NEUTROPHILS # (AUTO) 8.2 (2.1-6.9); NEUTROPHILS % 84.9 % (38.7-80.0); PLATELET COUNT 266 x10e3/uL (140-360); RED BLOOD COUNT 2.52 x10e6/uL (4.3-5.7); RED CELL DISTRIBUTION WIDTH 16.7 % (11.7-14.4)
[2021-09-06 07:00] LABS: ALBUMIN 2.1 g/dL (3.5-5.0); ALBUMIN/GLOBULIN RATIO 0.4 (0.8-2.0); ANION GAP 10.1 mmol/L (8-16); CALCIUM 9.3 mg/dL (8.4-10.2); CREATININE, SERUM 0.53 mg/dL (0.72-1.25); POTASSIUM 4.1 mmol/L (3.5-5.1)
[2021-09-06] MEDS: ENOXAPARIN INJ 80 MG/0.8 ML SYR SC SCH ×2 (08:17→21:10)
[2021-09-06] MEDS: EYE LUBRICANT OPTH OINT 3.5GM TUBE OP SCH ×2 (08:17→15:59)
[2021-09-06] MEDS: BALSAM PERU/CASTOR OIL 60 GM OINT...G. TP SCH (08:17)
[2021-09-06] MEDS: SENNA-S TABLET PO SCH (08:17)
[2021-09-06 09:10] LABS: BAND NEUTROPHILS % (MANUAL) 22 %; EOSINOPHILS % (MANUAL) 3 % (0-7); LYMPHOCYTES % (MANUAL) 5 % (19-48); METAMYELOCYTES % (MANUAL) 1 % (0-0); MONOCYTES % (MANUAL) 4 % (3.4-9.0); MYELOCYTES % (MANUAL) 1 % (0-0); NEUTROPHILS % (MANUAL) 64 % (40-74)
[2021-09-06 09:11] LABS: PLATELET ESTIMATE ADEQUATE; PLATELET MORPHOLOGY COMMENT NORMAL; RBC MORPHOLOGY COMMENT NORMAL
[2021-09-06 11:31] LABS: ABG PH 7.37 (7.35-7.45)
[2021-09-06 11:32] LABS: ABG HCO3 47 mmol/L (22-26); ABG PCO2 81 mmHg (35-45); ABG PO2 80 mmHg (80-105); ABG TCO2 50
[2021-09-06] MEDS: FENTANYL 2000MCG/NS 250 250 ML IV SCH (12:01)
[2021-09-06] MEDS: ACETAMINOPHEN 325 MG/10 ML UDC NG PRN (13:19)
[2021-09-07] VITALS (26 sets, daily range): BP systolic 98–183; BP diastolic 47–78
[2021-09-07] MEDS: INSULIN LISPRO 100 UNIT/1 ML 3ML VIAL SQ SCH ×4 (00:14→17:57)
[2021-09-07] MEDS: PROPOFOL IV EMULSION 10MG/ML 100 ML IV SCH ×6 (00:28→21:07)
[2021-09-07 05:34] LABS: BASOPHILS # (AUTO) 0.1 (0.0-0.1); BASOPHILS % 0.6 % (0.0-1.0); EOSINOPHILS # (AUTO) 0.2 (0.0-0.4); EOSINOPHILS % 2.2 % (0.0-6.0); HEMOGLOBIN 7.4 g/dL (14.0-18.0); LYMPHOCYTES # (AUTO) 1.3 (1.0-3.2); LYMPHOCYTES % 15.1 % (18.0-39.1); MEAN CORPUSCULAR HEMOGLOBIN 29.8 pg (28-32); MEAN CORPUSCULAR HGB CONC 30.8 g/dL (31-35); MEAN CORPUSCULAR VOLUME 96.8 fL (81-99); MONOCYTES # (AUTO) 0.6 (0.2-0.8); MONOCYTES % 7.1 % (4.4-11.3); NEUTROPHILS # (AUTO) 6.5 (2.1-6.9); PLATELET COUNT 270 x10e3/uL (140-360); RED BLOOD COUNT 2.48 x10e6/uL (4.3-5.7); RED CELL DISTRIBUTION WIDTH 16.8 % (11.7-14.4)
[2021-09-07 06:04] LABS: ALBUMIN 1.9 g/dL (3.5-5.0); ALBUMIN/GLOBULIN RATIO 0.3 (0.8-2.0); CALCIUM 9.1 mg/dL (8.4-10.2); CREATININE, SERUM 0.53 mg/dL (0.72-1.25)
[2021-09-07] MEDS: SENNA-S TABLET PO SCH (08:07)
[2021-09-07] MEDS: ENOXAPARIN INJ 80 MG/0.8 ML SYR SC SCH ×2 (08:07→21:06)
[2021-09-07] MEDS: BALSAM PERU/CASTOR OIL 60 GM OINT...G. TP SCH (08:07)
[2021-09-07] MEDS: FENTANYL 2000MCG/NS 250 250 ML IV SCH ×2 (08:42→18:48)
[2021-09-07 13:11] LABS: ABG HCO3 49 mmol/L (22-26); ABG PCO2 87 mmHg (35-45); ABG PH 7.36 (7.35-7.45); ABG PO2 73 mmHg (80-105); ABG TCO2 > 50
[2021-09-07] MEDS: NOREPINEPHRINE 8 MG/D5W 250 ML 250 ML IV SCH (15:00)
[2021-09-08] VITALS (34 sets, daily range): BP systolic 78–188; BP diastolic 47–99
[2021-09-08] MEDS: INSULIN LISPRO 100 UNIT/1 ML 3ML VIAL SQ SCH ×4 (00:01→18:42)
[2021-09-08] MEDS: PROPOFOL IV EMULSION 10MG/ML 100 ML IV SCH ×6 (01:54→23:08)
[2021-09-08 06:16] LABS: BASOPHILS % 0.5 % (0.0-1.0); EOSINOPHILS # (AUTO) 0.2 (0.0-0.4); EOSINOPHILS % 1.8 % (0.0-6.0); LYMPHOCYTES # (AUTO) 0.9 (1.0-3.2); LYMPHOCYTES % 10.2 % (18.0-39.1); MEAN CORPUSCULAR HEMOGLOBIN 29.4 pg (28-32); MEAN CORPUSCULAR HGB CONC 30.7 g/dL (31-35); MONOCYTES # (AUTO) 0.4 (0.2-0.8); MONOCYTES % 5.2 % (4.4-11.3); NEUTROPHILS # (AUTO) 6.8 (2.1-6.9); NEUTROPHILS % 80.9 % (38.7-80.0); PLATELET COUNT 273 x10e3/uL (140-360); RED BLOOD COUNT 2.48 x10e6/uL (4.3-5.7); RED CELL DISTRIBUTION WIDTH 16.6 % (11.7-14.4)
[2021-09-08 06:20] LABS: HEMATOCRIT 23.7 % (38.2-49.6); HEMOGLOBIN 7.4 g/dL (14.0-18.0)
[2021-09-08] MEDS: FENTANYL 2000MCG/NS 250 250 ML IV SCH ×2 (06:31→18:42)
[2021-09-08 06:40] LABS: ALBUMIN 1.8 g/dL (3.5-5.0); ALBUMIN/GLOBULIN RATIO 0.3 (0.8-2.0); ANION GAP 16.2 mmol/L (8-16); CALCIUM 9.2 mg/dL (8.4-10.2); CREATININE, SERUM 0.57 mg/dL (0.72-1.25); POTASSIUM 5.2 mmol/L (3.5-5.1)
[2021-09-08] MEDS: BALSAM PERU/CASTOR OIL 60 GM OINT...G. TP SCH (08:27)
[2021-09-08] MEDS: SENNA-S TABLET PO SCH (08:27)
[2021-09-08] MEDS: ENOXAPARIN INJ 80 MG/0.8 ML SYR SC SCH ×2 (08:27→21:00)
[2021-09-08 09:23] LABS: ABG PH 7.32 (7.35-7.45)
[2021-09-08 09:24] LABS: ABG HCO3 48 mmol/L (22-26); ABG PCO2 95 mmHg (35-45); ABG PO2 101 mmHg (80-105); ABG TCO2 > 50
[2021-09-08] MEDS: ACETAMINOPHEN 325 MG/10 ML UDC NG PRN (11:11)
[2021-09-08 11:43] LABS: BAND NEUTROPHILS % (MANUAL) 11 %; LYMPHOCYTES % (MANUAL) 8 % (19-48); MONOCYTES % (MANUAL) 4 % (3.4-9.0); NEUTROPHILS % (MANUAL) 77 % (40-74); NUCLEATED RED BLOOD CELLS 1; PLATELET ESTIMATE ADEQUATE; PLATELET MORPHOLOGY COMMENT NORMAL; RBC MORPHOLOGY COMMENT NORMAL
[2021-09-08] MEDS: FLUCONAZOLE 200 MG/100 ML 100 ML IV SCH (13:38)
[2021-09-08] MEDS: NOREPINEPHRINE 8 MG/D5W 250 ML 250 ML IV SCH (13:46)
[2021-09-08] MEDS: MEROPENEM 500 MG in SODIUM CHLORIDE 0.9% 50ML 50 ML IV SCH ×2 (15:05→22:30)
[2021-09-08 15:28] LABS: ABG HCO3 51 mmol/L (22-26); ABG PCO2 113 mmHg (35-45); ABG PH 7.26 (7.35-7.45); ABG PO2 165 mmHg (80-105); ABG TCO2 > 50
[2021-09-09] VITALS (39 sets, daily range): BP systolic 89–186; BP diastolic 49–73
[2021-09-09] MEDS: INSULIN LISPRO 100 UNIT/1 ML 3ML VIAL SQ SCH ×4 (01:03→17:53)
[2021-09-09] MEDS: PROPOFOL IV EMULSION 10MG/ML 100 ML IV SCH ×5 (03:35→21:00)
[2021-09-09] MEDS: MEROPENEM 500 MG in SODIUM CHLORIDE 0.9% 50ML 50 ML IV SCH ×3 (05:50→20:58)
[2021-09-09 06:30] LABS: BASOPHILS % 0.4 % (0.0-1.0); EOSINOPHILS # (AUTO) 0.1 (0.0-0.4); HEMATOCRIT 22.1 % (38.2-49.6); HEMOGLOBIN 7.6 g/dL (14.0-18.0); LYMPHOCYTES # (AUTO) 1.3 (1.0-3.2); LYMPHOCYTES % 13.6 % (18.0-39.1); MEAN CORPUSCULAR HEMOGLOBIN 32.5 pg (28-32); MEAN CORPUSCULAR HGB CONC 34.4 g/dL (31-35); MEAN CORPUSCULAR VOLUME 94.4 fL (81-99); MONOCYTES # (AUTO) 0.9 (0.2-0.8); MONOCYTES % 9.6 % (4.4-11.3); NEUTROPHILS % 73.2 % (38.7-80.0); PLATELET COUNT 258 x10e3/uL (140-360); RED BLOOD COUNT 2.34 x10e6/uL (4.3-5.7); RED CELL DISTRIBUTION WIDTH 16.7 % (11.7-14.4)
[2021-09-09 06:40] LABS: ALBUMIN 1.8 g/dL (3.5-5.0); ALBUMIN/GLOBULIN RATIO 0.3 (0.8-2.0); ANION GAP 15.4 mmol/L (8-16); CALCIUM 9.9 mg/dL (8.4-10.2); CREATININE, SERUM 0.65 mg/dL (0.72-1.25); POTASSIUM 5.4 mmol/L (3.5-5.1)
[2021-09-09 08:24] LABS: BAND NEUTROPHILS % (MANUAL) 6 %; LYMPHOCYTES % (MANUAL) 7 % (19-48); MONOCYTES % (MANUAL) 1 % (3.4-9.0); NEUTROPHILS % (MANUAL) 85 % (40-74); NUCLEATED RED BLOOD CELLS 2
[2021-09-09 08:26] LABS: PLATELET ESTIMATE ADEQUATE; PLATELET MORPHOLOGY COMMENT NORMAL
[2021-09-09 08:27] LABS: RBC MORPHOLOGY COMMENT NORMAL
[2021-09-09] MEDS: BALSAM PERU/CASTOR OIL 60 GM OINT...G. TP SCH (08:55)
[2021-09-09] MEDS: FLUCONAZOLE 200 MG/100 ML 100 ML IV SCH (08:55)
[2021-09-09] MEDS: ENOXAPARIN INJ 80 MG/0.8 ML SYR SC SCH ×2 (08:55→20:22)
[2021-09-09] MEDS: SENNA-S TABLET PO SCH (08:55)
[2021-09-09] MEDS: FENTANYL 2000MCG/NS 250 250 ML IV SCH ×2 (09:05→23:04)
[2021-09-09 09:14] LABS: ABG HCO3 52 mmol/L (22-26); ABG PCO2 47 mmHg (35-45); ABG PH 7.65 (7.35-7.45); ABG PO2 146 mmHg (80-105); ABG TCO2 > 50
[2021-09-09] MEDS ORDERED: FUROSEMIDE INJ 10 MG/ML 4 ML VIAL IV ONE (10:45)
[2021-09-09] MEDS: NOREPINEPHRINE 8 MG/D5W 250 ML 250 ML IV SCH (15:00)
[2021-09-09 15:47] LABS: ABG PCO2 112 mmHg (35-45)
[2021-09-09 15:48] LABS: ABG HCO3 55 mmol/L (22-26); ABG PO2 80 mmHg (80-105); ABG TCO2 > 50
[2021-09-09] MEDS: ACETAMINOPHEN 325 MG/10 ML UDC NG PRN (21:18)
[2021-09-10] VITALS (29 sets, daily range): BP systolic 110–197; BP diastolic 61–87
[2021-09-10] MEDS: INSULIN LISPRO 100 UNIT/1 ML 3ML VIAL SQ SCH ×4 (00:15→17:23)
[2021-09-10] MEDS: PROPOFOL IV EMULSION 10MG/ML 100 ML IV SCH ×6 (00:57→21:30)
[2021-09-10] MEDS: HYDRALAZINE HCL 20 MG/ML VIAL IV PRN ×2 (04:45→16:08)
[2021-09-10] MEDS: MEROPENEM 500 MG in SODIUM CHLORIDE 0.9% 50ML 50 ML IV SCH ×3 (05:03→21:36)
[2021-09-10] MEDS: LORAZEPAM INJ 2 MG/ML VIAL IV PRN ×3 (05:20→23:43)
[2021-09-10 05:35] LABS: BASOPHILS # (AUTO) 0.1 (0.0-0.1); BASOPHILS % 0.5 % (0.0-1.0); EOSINOPHILS # (AUTO) 0.2 (0.0-0.4); EOSINOPHILS % 1.4 % (0.0-6.0); HEMATOCRIT 23.4 % (38.2-49.6); HEMOGLOBIN 8.6 g/dL (14.0-18.0); LYMPHOCYTES # (AUTO) 1.3 (1.0-3.2); LYMPHOCYTES % 11.6 % (18.0-39.1); MEAN CORPUSCULAR HEMOGLOBIN 35.5 pg (28-32); MEAN CORPUSCULAR HGB CONC 36.8 g/dL (31-35); MEAN CORPUSCULAR VOLUME 96.7 fL (81-99); MONOCYTES # (AUTO) 0.8 (0.2-0.8); MONOCYTES % 7.6 % (4.4-11.3); NEUTROPHILS # (AUTO) 8.3 (2.1-6.9); NEUTROPHILS % 75.9 % (38.7-80.0); PLATELET COUNT 348 x10e3/uL (140-360); RED BLOOD COUNT 2.42 x10e6/uL (4.3-5.7); RED CELL DISTRIBUTION WIDTH 17.2 % (11.7-14.4)
[2021-09-10 06:12] LABS: ALBUMIN 1.9 g/dL (3.5-5.0); ALBUMIN/GLOBULIN RATIO 0.2 (0.8-2.0); ANION GAP 15.9 mmol/L (8-16); CALCIUM 9.8 mg/dL (8.4-10.2); CREATININE, SERUM 0.65 mg/dL (0.72-1.25); POTASSIUM 4.9 mmol/L (3.5-5.1)
[2021-09-10] MEDS: SENNA-S TABLET PO SCH (07:53)
[2021-09-10] MEDS: FLUCONAZOLE 200 MG/100 ML 100 ML IV SCH (07:53)
[2021-09-10] MEDS: BALSAM PERU/CASTOR OIL 60 GM OINT...G. TP SCH (07:53)
[2021-09-10] MEDS: ENOXAPARIN INJ 80 MG/0.8 ML SYR SC SCH ×2 (07:53→21:36)
[2021-09-10] MEDS: FENTANYL 2000MCG/NS 250 250 ML IV SCH (08:10)
[2021-09-10 10:31] LABS: BAND NEUTROPHILS % (MANUAL) 5 %; EOSINOPHILS % (MANUAL) 2 % (0-7); LYMPHOCYTES % (MANUAL) 13 % (19-48); METAMYELOCYTES % (MANUAL) 2 % (0-0); MONOCYTES % (MANUAL) 4 % (3.4-9.0); MYELOCYTES % (MANUAL) 1 % (0-0); NEUTROPHILS % (MANUAL) 72 % (40-74); POLYCHROMASIA FEW; RBC MORPHOLOGY COMMENT NORMAL
[2021-09-10 10:32] LABS: PLATELET ESTIMATE ADEQUATE; PLATELET MORPHOLOGY COMMENT FEW GIANT
[2021-09-10 12:26] LABS: ABG PH 7.35 (7.35-7.45)
[2021-09-10 12:27] LABS: ABG HCO3 57 mmol/L (22-26); ABG PCO2 103 mmHg (35-45); ABG PO2 88 mmHg (80-105); ABG TCO2 50
[2021-09-10] MEDS ORDERED: PROPOFOL IV EMULSION 10MG/ML 100 ML IV PRN (16:30)
[2021-09-11] VITALS (28 sets, daily range): BP systolic 128–212; BP diastolic 65–91
[2021-09-11] MEDS: PROPOFOL IV EMULSION 10MG/ML 100 ML IV SCH ×7 (00:45→22:00)
[2021-09-11] MEDS: INSULIN LISPRO 100 UNIT/1 ML 3ML VIAL SQ SCH ×4 (01:00→17:07)
[2021-09-11] MEDS: FENTANYL 2000MCG/NS 250 250 ML IV SCH ×2 (01:16→17:28)
[2021-09-11 06:13] LABS: BASOPHILS # (AUTO) 0.1 (0.0-0.1); BASOPHILS % 0.7 % (0.0-1.0); EOSINOPHILS # (AUTO) 0.1 (0.0-0.4); EOSINOPHILS % 0.6 % (0.0-6.0); HEMATOCRIT 22.6 % (38.2-49.6); HEMOGLOBIN 8.4 g/dL (14.0-18.0); LYMPHOCYTES # (AUTO) 1.3 (1.0-3.2); LYMPHOCYTES % 14.8 % (18.0-39.1); MEAN CORPUSCULAR HEMOGLOBIN 35.9 pg (28-32); MEAN CORPUSCULAR HGB CONC 37.2 g/dL (31-35); MEAN CORPUSCULAR VOLUME 96.6 fL (81-99); MONOCYTES # (AUTO) 0.6 (0.2-0.8); MONOCYTES % 7.3 % (4.4-11.3); NEUTROPHILS # (AUTO) 6.2 (2.1-6.9); NEUTROPHILS % 72.6 % (38.7-80.0); PLATELET COUNT 389 x10e3/uL (140-360); RED BLOOD COUNT 2.34 x10e6/uL (4.3-5.7); RED CELL DISTRIBUTION WIDTH 17.2 % (11.7-14.4)
[2021-09-11] MEDS: MEROPENEM 500 MG in SODIUM CHLORIDE 0.9% 50ML 50 ML IV SCH ×3 (06:15→20:32)
[2021-09-11 06:43] LABS: ALBUMIN 1.8 g/dL (3.5-5.0); ALBUMIN/GLOBULIN RATIO 0.2 (0.8-2.0); ANION GAP 17.4 mmol/L (8-16); CREATININE, SERUM 0.6 mg/dL (0.72-1.25); POTASSIUM 5.4 mmol/L (3.5-5.1)
[2021-09-11] MEDS: FLUCONAZOLE 200 MG/100 ML 100 ML IV SCH (08:19)
[2021-09-11] MEDS: SENNA-S TABLET PO SCH (08:19)
[2021-09-11] MEDS: ENOXAPARIN INJ 80 MG/0.8 ML SYR SC SCH ×2 (08:19→20:32)
[2021-09-11] MEDS: BALSAM PERU/CASTOR OIL 60 GM OINT...G. TP SCH (08:22)
[2021-09-11] MEDS ORDERED: SODIUM CHLORIDE 0.45% 1,000 ML IV ONE (10:00)
[2021-09-11] MEDS: ACYCLOVIR SODIUM INJ 500 MG in SODIUM CHLORIDE 0.9% 100 ML 100 ML IV SCH ×2 (13:19→21:06)
[2021-09-11] MEDS ORDERED: SODIUM CHLORIDE 0.45% 1,000 ML ONE (13:34)
[2021-09-11 13:44] LABS: ABG HCO3 58 mmol/L (22-26); ABG PCO2 94 mmHg (35-45); ABG PO2 98 mmHg (80-105); ABG TCO2 > 50
[2021-09-11] MEDS: LORAZEPAM INJ 2 MG/ML VIAL IV PRN (13:45)
[2021-09-11] MEDS: HYDRALAZINE HCL 20 MG/ML VIAL IV PRN ×2 (15:37→16:42)
[2021-09-11] MEDS: ACETAMINOPHEN 325 MG/10 ML UDC NG PRN (19:49)
[2021-09-11] MEDS ORDERED: INSULIN GLARGINE 100 UNITS/ML VIAL SQ SCH (21:00)
[2021-09-12] VITALS (36 sets, daily range): BP systolic 84–207; BP diastolic 45–94
[2021-09-12] MEDS: INSULIN LISPRO 100 UNIT/1 ML 3ML VIAL SQ SCH ×2 (00:15→06:02)
[2021-09-12] MEDS: PROPOFOL IV EMULSION 10MG/ML 100 ML IV SCH ×6 (01:00→23:59)
[2021-09-12] MEDS: BALSAM PERU/CASTOR OIL 60 GM OINT...G. TP SCH (04:00)
[2021-09-12 05:10] LABS: BASOPHILS # (AUTO) 0.1 (0.0-0.1); BASOPHILS % 0.5 % (0.0-1.0); EOSINOPHILS # (AUTO) 0.2 (0.0-0.4); EOSINOPHILS % 1.7 % (0.0-6.0); HEMATOCRIT 21.2 % (38.2-49.6); HEMOGLOBIN 8.7 g/dL (14.0-18.0); LYMPHOCYTES # (AUTO) 1.2 (1.0-3.2); MEAN CORPUSCULAR HEMOGLOBIN 38.5 pg (28-32); MEAN CORPUSCULAR VOLUME 93.8 fL (81-99); MONOCYTES # (AUTO) 0.4 (0.2-0.8); MONOCYTES % 4.3 % (4.4-11.3); NEUTROPHILS # (AUTO) 7.6 (2.1-6.9); NEUTROPHILS % 77.3 % (38.7-80.0); PLATELET COUNT 377 x10e3/uL (140-360); RED BLOOD COUNT 2.26 x10e6/uL (4.3-5.7); RED CELL DISTRIBUTION WIDTH 17.9 % (11.7-14.4)
[2021-09-12 05:49] LABS: ALBUMIN 1.8 g/dL (3.5-5.0); ALBUMIN/GLOBULIN RATIO 0.2 (0.8-2.0); ANION GAP 19.7 mmol/L (8-16); CREATININE, SERUM 0.52 mg/dL (0.72-1.25); POTASSIUM 4.7 mmol/L (3.5-5.1)
[2021-09-12] MEDS: MEROPENEM 500 MG in SODIUM CHLORIDE 0.9% 50ML 50 ML IV SCH (05:54)
[2021-09-12] MEDS: ACYCLOVIR SODIUM INJ 500 MG in SODIUM CHLORIDE 0.9% 100 ML 100 ML IV SCH ×3 (06:01→22:44)
[2021-09-12] MEDS: ACETAMINOPHEN 325 MG/10 ML UDC NG PRN (07:50)
[2021-09-12] MEDS ORDERED: LORAZEPAM INJ 2 MG/ML VIAL IV ONE (08:00)
[2021-09-12 08:02] LABS: BAND NEUTROPHILS % (MANUAL) 22 %; EOSINOPHILS % (MANUAL) 2 % (0-7); LYMPHOCYTES % (MANUAL) 12 % (19-48); METAMYELOCYTES % (MANUAL) 2 % (0-0); MONOCYTES % (MANUAL) 3 % (3.4-9.0); MYELOCYTES % (MANUAL) 2 % (0-0); NEUTROPHILS % (MANUAL) 56 % (40-74); NUCLEATED RED BLOOD CELLS 1
[2021-09-12 08:03] LABS: PLATELET ESTIMATE ADEQUATE; PLATELET MORPHOLOGY COMMENT NORMAL; RBC MORPHOLOGY COMMENT NORMAL
[2021-09-12] MEDS: FLUCONAZOLE 200 MG/100 ML 100 ML IV SCH (08:15)
[2021-09-12] MEDS: ENOXAPARIN INJ 80 MG/0.8 ML SYR SC SCH ×2 (08:16→21:00)
[2021-09-12] MEDS: SENNA-S TABLET PO SCH (08:17)
[2021-09-12] MEDS ORDERED: ACETAMINOPHEN 1000 MG/100 ML IV PRN (08:45)
[2021-09-12] MEDS ORDERED: SODIUM CHLORIDE 0.9% 1000ML 1,000 ML IV ONE (09:00)
[2021-09-12] MEDS ORDERED: ACETAMINOPHEN 1000 MG/100 ML IV ONE (09:00)
[2021-09-12] MEDS ORDERED: DEXTROSE 50% SYRINGE 50 ML IV PRN ×3 (15:30→21:00)
[2021-09-12] MEDS: CEFEPIME 2 GM in SODIUM CHLORIDE 0.9% 100 ML IV SCH ×2 (16:10→22:44)
[2021-09-12] MEDS ORDERED: INSULIN LISPRO 100 UNIT/1 ML 3ML VIAL SQ SCH ×2 (16:30→21:00)
[2021-09-12] MEDS: FENTANYL 2000MCG/NS 250 250 ML IV SCH (18:35)
[2021-09-12] MEDS: INSULIN GLARGINE 100 UNITS/ML VIAL SQ SCH (21:00)
[2021-09-13] VITALS (15 sets, daily range): BP systolic 98–181; BP diastolic 62–81
[2021-09-13] MEDS ORDERED: INSULIN LISPRO 100 UNIT/1 ML 3ML VIAL SQ SCH
[2021-09-13] MEDS: INSULIN LISPRO 100 UNIT/1 ML 3ML VIAL SQ SCH ×5 (00:25→23:53)
[2021-09-13] MEDS: ACYCLOVIR SODIUM INJ 500 MG in SODIUM CHLORIDE 0.9% 100 ML 100 ML IV SCH ×3 (05:41→21:09)
[2021-09-13 05:53] LABS: BASOPHILS # (AUTO) 0.1 (0.0-0.1); BASOPHILS % 0.7 % (0.0-1.0); EOSINOPHILS # (AUTO) 0.2 (0.0-0.4); EOSINOPHILS % 2.2 % (0.0-6.0); HEMOGLOBIN 7.2 g/dL (14.0-18.0); LYMPHOCYTES # (AUTO) 2.2 (1.0-3.2); MEAN CORPUSCULAR HEMOGLOBIN 33.5 pg (28-32); MEAN CORPUSCULAR HGB CONC 35.5 g/dL (31-35); MEAN CORPUSCULAR VOLUME 94.4 fL (81-99); MONOCYTES # (AUTO) 0.6 (0.2-0.8); MONOCYTES % 5.7 % (4.4-11.3); NEUTROPHILS # (AUTO) 6.8 (2.1-6.9); NEUTROPHILS % 67.2 % (38.7-80.0); PLATELET COUNT 312 x10e3/uL (140-360); RED BLOOD COUNT 2.15 x10e6/uL (4.3-5.7); RED CELL DISTRIBUTION WIDTH 18.3 % (11.7-14.4)
[2021-09-13 06:10] LABS: HEMATOCRIT 20.3 % (38.2-49.6)
[2021-09-13 06:20] LABS: ALBUMIN 1.6 g/dL (3.5-5.0); ALBUMIN/GLOBULIN RATIO 0.2 (0.8-2.0); ANION GAP 15.2 mmol/L (8-16); CALCIUM 9.2 mg/dL (8.4-10.2); CREATININE, SERUM 0.58 mg/dL (0.72-1.25); POTASSIUM 4.2 mmol/L (3.5-5.1)
[2021-09-13] MEDS: CEFEPIME 2 GM in SODIUM CHLORIDE 0.9% 100 ML IV SCH ×3 (06:37→22:40)
[2021-09-13 06:41] LABS: CHOLESTEROL 321 MD/DL (0-199); PHOSPHORUS 2.5 MG/DL (2.3-4.7)
[2021-09-13 07:20] LABS: HDL CHOLESTEROL < 5 MG/DL (40-60); TRIGLYCERIDES 1698 MG/DL (0-149)
[2021-09-13] MEDS: ENOXAPARIN INJ 80 MG/0.8 ML SYR SC SCH ×2 (08:47→21:09)
[2021-09-13] MEDS: SENNA-S TABLET PO SCH (08:47)
[2021-09-13] MEDS: PROPOFOL IV EMULSION 10MG/ML 100 ML IV SCH (08:52)
[2021-09-13] MEDS: FENTANYL 2000MCG/NS 250 250 ML IV SCH ×2 (08:54→20:00)
[2021-09-13 10:50] LABS: BAND NEUTROPHILS % (MANUAL) 4 %; EOSINOPHILS % (MANUAL) 3 % (0-7); LYMPHOCYTES % (MANUAL) 23 % (19-48); METAMYELOCYTES % (MANUAL) 1 % (0-0); MONOCYTES % (MANUAL) 3 % (3.4-9.0); NEUTROPHILS % (MANUAL) 66 % (40-74); PLATELET ESTIMATE ADEQUATE; RBC MORPHOLOGY COMMENT NORMAL
[2021-09-13 10:51] LABS: PLATELET MORPHOLOGY COMMENT FEW LARGE
[2021-09-13 11:38] LABS: ABG PH 7.42 (7.35-7.45)
[2021-09-13 11:39] LABS: ABG HCO3 48 mmol/L (22-26); ABG PCO2 74 mmHg (35-45); ABG PO2 130 mmHg (80-105)
[2021-09-13 11:40] LABS: ABG TCO2 50
[2021-09-13] MEDS: LORAZEPAM INJ 2 MG/ML VIAL IV PRN (12:04)
[2021-09-13] MEDS: Vancomycin IV 1 GM in SODIUM CHLORIDE 0.9% 250ML 250 ML IV SCH (15:12)
[2021-09-13] MEDS: INSULIN GLARGINE 100 UNITS/ML VIAL SQ SCH (21:21)
[2021-09-14] VITALS (24 sets, daily range): BP systolic 101–164; BP diastolic 54–73
[2021-09-14] MEDS: Vancomycin IV 1 GM in SODIUM CHLORIDE 0.9% 250ML 250 ML IV SCH ×2 (00:58→12:34)
[2021-09-14] MEDS: ACYCLOVIR SODIUM INJ 500 MG in SODIUM CHLORIDE 0.9% 100 ML 100 ML IV SCH ×3 (05:03→21:19)
[2021-09-14 05:12] LABS: BASOPHILS # (AUTO) 0.1 (0.0-0.1); BASOPHILS % 0.9 % (0.0-1.0); EOSINOPHILS # (AUTO) 0.3 (0.0-0.4); EOSINOPHILS % 2.8 % (0.0-6.0); HEMATOCRIT 23.5 % (38.2-49.6); HEMOGLOBIN 7.1 g/dL (14.0-18.0); LYMPHOCYTES # (AUTO) 2.2 (1.0-3.2); LYMPHOCYTES % 24.6 % (18.0-39.1); MEAN CORPUSCULAR HEMOGLOBIN 29.7 pg (28-32); MEAN CORPUSCULAR HGB CONC 30.2 g/dL (31-35); MEAN CORPUSCULAR VOLUME 98.3 fL (81-99); MONOCYTES # (AUTO) 0.7 (0.2-0.8); MONOCYTES % 7.5 % (4.4-11.3); NEUTROPHILS # (AUTO) 5.4 (2.1-6.9); NEUTROPHILS % 60.3 % (38.7-80.0); PLATELET COUNT 326 x10e3/uL (140-360); RED BLOOD COUNT 2.39 x10e6/uL (4.3-5.7)
[2021-09-14 05:26] LABS: ALBUMIN 1.7 g/dL (3.5-5.0); ALBUMIN/GLOBULIN RATIO 0.3 (0.8-2.0); ANION GAP 15.9 mmol/L (8-16); CALCIUM 9.2 mg/dL (8.4-10.2); CREATININE, SERUM 0.56 mg/dL (0.72-1.25); POTASSIUM 4.9 mmol/L (3.5-5.1)
[2021-09-14] MEDS: INSULIN LISPRO 100 UNIT/1 ML 3ML VIAL SQ SCH ×3 (05:48→17:05)
[2021-09-14] MEDS: CEFEPIME 2 GM in SODIUM CHLORIDE 0.9% 100 ML IV SCH (06:30)
[2021-09-14] MEDS: ENOXAPARIN INJ 80 MG/0.8 ML SYR SC SCH ×2 (08:10→20:45)
[2021-09-14] MEDS: SENNA-S TABLET PO SCH (08:10)
[2021-09-14 09:47] LABS: BAND NEUTROPHILS % (MANUAL) 5 %; EOSINOPHILS % (MANUAL) 3 % (0-7); LYMPHOCYTES % (MANUAL) 13 % (19-48); METAMYELOCYTES % (MANUAL) 3 % (0-0); MONOCYTES % (MANUAL) 2 % (3.4-9.0); MYELOCYTES % (MANUAL) 1 % (0-0); NEUTROPHILS % (MANUAL) 71 % (40-74); NUCLEATED RED BLOOD CELLS 7; RBC MORPHOLOGY COMMENT ABNORMAL
[2021-09-14 09:48] LABS: MICROCYTOSIS SLIGHT; PLATELET ESTIMATE ADEQUATE; PLATELET MORPHOLOGY COMMENT FEW LARGE; POLYCHROMASIA FEW
[2021-09-14] MEDS: PIPERACILLIN/TAZOBACTAM 4.5 GM in SODIUM CHLORIDE 0.9% 100 ML IV SCH ×2 (11:36→18:20)
[2021-09-14] MEDS: FENTANYL 2000MCG/NS 250 250 ML IV SCH (11:50)
[2021-09-14] MEDS ORDERED: ACETAMINOPHEN 325 MG TAB PO STA (12:12)
[2021-09-14] MEDS ORDERED: SODIUM CHLORIDE 0.9% 250ML 250 ML IV ONE (13:00)
[2021-09-14] MEDS: LORAZEPAM INJ 2 MG/ML VIAL IV PRN (13:17)
[2021-09-14] MEDS ORDERED: CEFEPIME 2 GM in SODIUM CHLORIDE 0.9% 100 ML IV SCH (14:00)
[2021-09-14] MEDS ORDERED: SODIUM CHLORIDE 0.9% 250ML 250 ML ONE (19:39)
[2021-09-14] MEDS: INSULIN GLARGINE 100 UNITS/ML VIAL SQ SCH (20:56)
[2021-09-14] MEDS: DEXMEDETOMIDINE 400MCG/NS100ML 100 ML IV PRN (21:05)
[2021-09-15] VITALS (24 sets, daily range): BP systolic 116–189; BP diastolic 58–80
[2021-09-15] MEDS: INSULIN LISPRO 100 UNIT/1 ML 3ML VIAL SQ SCH ×4 (01:00→18:03)
[2021-09-15] MEDS: FENTANYL 2000MCG/NS 250 250 ML IV SCH ×2 (01:01→10:34)
[2021-09-15 01:43] LABS: ANION GAP 12.3 mmol/L (8-16); CALCIUM 8.8 mg/dL (8.4-10.2); CREATININE, SERUM 0.54 mg/dL (0.72-1.25); POTASSIUM 4.3 mmol/L (3.5-5.1)
[2021-09-15] MEDS: Vancomycin IV 1 GM in SODIUM CHLORIDE 0.9% 250ML 250 ML IV SCH (01:46)
[2021-09-15] MEDS: PIPERACILLIN/TAZOBACTAM 4.5 GM in SODIUM CHLORIDE 0.9% 100 ML IV SCH ×3 (03:37→20:02)
[2021-09-15] MEDS: ACYCLOVIR SODIUM INJ 500 MG in SODIUM CHLORIDE 0.9% 100 ML 100 ML IV SCH (05:44)
[2021-09-15 05:50] LABS: BASOPHILS # (AUTO) 0.1 (0.0-0.1); BASOPHILS % 0.8 % (0.0-1.0); EOSINOPHILS # (AUTO) 0.2 (0.0-0.4); EOSINOPHILS % 2.8 % (0.0-6.0); HEMATOCRIT 23.5 % (38.2-49.6); HEMOGLOBIN 7.3 g/dL (14.0-18.0); LYMPHOCYTES # (AUTO) 1.3 (1.0-3.2); LYMPHOCYTES % 15.5 % (18.0-39.1); MEAN CORPUSCULAR HEMOGLOBIN 29.4 pg (28-32); MEAN CORPUSCULAR HGB CONC 31.1 g/dL (31-35); MEAN CORPUSCULAR VOLUME 94.8 fL (81-99); MONOCYTES # (AUTO) 0.4 (0.2-0.8); NEUTROPHILS # (AUTO) 6.1 (2.1-6.9); NEUTROPHILS % 74.4 % (38.7-80.0); PLATELET COUNT 287 x10e3/uL (140-360); RED BLOOD COUNT 2.48 x10e6/uL (4.3-5.7); RED CELL DISTRIBUTION WIDTH 17.2 % (11.7-14.4)
[2021-09-15 07:08] LABS: ALBUMIN 1.6 g/dL (3.5-5.0); ALBUMIN/GLOBULIN RATIO 0.3 (0.8-2.0); ANION GAP 10.5 mmol/L (8-16); CALCIUM 8.4 mg/dL (8.4-10.2); CREATININE, SERUM 0.52 mg/dL (0.72-1.25); POTASSIUM 4.5 mmol/L (3.5-5.1)
[2021-09-15] MEDS: SENNA-S TABLET PO SCH (08:19)
[2021-09-15] MEDS: ENOXAPARIN INJ 80 MG/0.8 ML SYR SC SCH ×2 (08:19→21:09)
[2021-09-15] MEDS: DEXMEDETOMIDINE 400MCG/NS100ML 100 ML IV PRN ×3 (11:13→22:05)
[2021-09-15] MEDS: LORAZEPAM INJ 2 MG/ML VIAL IV PRN ×2 (12:08→21:45)
[2021-09-15] MEDS: HYDRALAZINE HCL 20 MG/ML VIAL IV PRN (12:08)
[2021-09-15] MEDS: INSULIN GLARGINE 100 UNITS/ML VIAL SQ SCH (21:10)
[2021-09-16] VITALS (25 sets, daily range): BP systolic 119–195; BP diastolic 60–81
[2021-09-16] MEDS: INSULIN LISPRO 100 UNIT/1 ML 3ML VIAL SQ SCH ×4 (00:48→17:29)
[2021-09-16] MEDS: PIPERACILLIN/TAZOBACTAM 4.5 GM in SODIUM CHLORIDE 0.9% 100 ML IV SCH ×3 (03:30→19:59)
[2021-09-16] MEDS: LORAZEPAM INJ 2 MG/ML VIAL IV PRN ×3 (06:24→16:55)
[2021-09-16] MEDS: DEXMEDETOMIDINE 400MCG/NS100ML 100 ML IV PRN ×3 (06:24→23:14)
[2021-09-16] MEDS: FENTANYL 2000MCG/NS 250 250 ML IV SCH (07:15)
[2021-09-16] MEDS: ENOXAPARIN INJ 80 MG/0.8 ML SYR SC SCH (08:14)
[2021-09-16] MEDS: SENNA-S TABLET PO SCH (08:14)
[2021-09-16] MEDS: ENOXAPARIN SOD INJ 40 MG/0.4 ML SYR SC SCH ×2 (08:33→21:26)
[2021-09-16] MEDS ORDERED: Vancomycin IV 1 GM in SODIUM CHLORIDE 0.9% 250ML 250 ML IV SCH (09:00)
[2021-09-16] MEDS: HYDRALAZINE HCL 20 MG/ML VIAL IV PRN (11:12)
[2021-09-16 12:54] LABS: HEMATOCRIT 23.9 % (38.2-49.6); HEMOGLOBIN 7.3 g/dL (14.0-18.0)
[2021-09-16 16:34] LABS: ABG HCO3 46 mmol/L (22-26); ABG PCO2 54 mmHg (35-45); ABG PH 7.54 (7.35-7.45); ABG PO2 140 mmHg (80-105); ABG TCO2 48
[2021-09-16] MEDS: INSULIN GLARGINE 100 UNITS/ML VIAL SQ SCH (21:27)
[2021-09-17] VITALS (16 sets, daily range): BP systolic 128–187; BP diastolic 65–87
[2021-09-17] MEDS: PIPERACILLIN/TAZOBACTAM 4.5 GM in SODIUM CHLORIDE 0.9% 100 ML IV SCH ×3 (03:44→18:30)
[2021-09-17 05:32] LABS: BASOPHILS # (AUTO) 0.1 (0.0-0.1); BASOPHILS % 0.8 % (0.0-1.0); EOSINOPHILS # (AUTO) 0.3 (0.0-0.4); EOSINOPHILS % 4.5 % (0.0-6.0); HEMATOCRIT 23.5 % (38.2-49.6); HEMOGLOBIN 7.2 g/dL (14.0-18.0); LYMPHOCYTES # (AUTO) 1.3 (1.0-3.2); MEAN CORPUSCULAR HEMOGLOBIN 28.7 pg (28-32); MEAN CORPUSCULAR HGB CONC 30.6 g/dL (31-35); MEAN CORPUSCULAR VOLUME 93.6 fL (81-99); MONOCYTES # (AUTO) 0.6 (0.2-0.8); MONOCYTES % 8.3 % (4.4-11.3); NEUTROPHILS # (AUTO) 4.8 (2.1-6.9); NEUTROPHILS % 67.3 % (38.7-80.0); PLATELET COUNT 338 x10e3/uL (140-360); RED BLOOD COUNT 2.51 x10e6/uL (4.3-5.7); RED CELL DISTRIBUTION WIDTH 18.7 % (11.7-14.4)
[2021-09-17 05:49] LABS: ANION GAP 10.6 mmol/L (8-16); CALCIUM 8.5 mg/dL (8.4-10.2); CREATININE, SERUM 0.5 mg/dL (0.72-1.25); POTASSIUM 4.6 mmol/L (3.5-5.1)
[2021-09-17] MEDS: INSULIN LISPRO 100 UNIT/1 ML 3ML VIAL SQ SCH ×5 (05:57→18:24)
[2021-09-17] MEDS: SENNA-S TABLET PO SCH (09:41)
[2021-09-17] MEDS: ENOXAPARIN SOD INJ 40 MG/0.4 ML SYR SC SCH ×2 (09:41→21:17)
[2021-09-17] MEDS: LORAZEPAM INJ 2 MG/ML VIAL IV PRN (09:49)
[2021-09-17] MEDS: DEXMEDETOMIDINE 400MCG/NS100ML 100 ML IV PRN ×3 (09:50→19:59)
[2021-09-17] MEDS: FENTANYL 2000MCG/NS 250 250 ML IV SCH (11:54)
[2021-09-17] MEDS ORDERED: SODIUM CHLORIDE 0.9% 250ML 250 ML IV ONE (14:00)
[2021-09-17 14:25] LABS: ABG HCO3 39 mmol/L (22-26); ABG PCO2 54 mmHg (35-45); ABG PH 7.47 (7.35-7.45); ABG PO2 81 mmHg (80-105); ABG TCO2 40
[2021-09-17] MEDS: FUROSEMIDE INJ 10 MG/ML 4 ML VIAL IV SCH ×2 (14:39→21:17)
[2021-09-17] MEDS: INSULIN GLARGINE 100 UNITS/ML VIAL SQ SCH (21:18)
[2021-09-18] VITALS (16 sets, daily range): BP systolic 97–165; BP diastolic 56–94
[2021-09-18] MEDS: DEXMEDETOMIDINE 400MCG/NS100ML 100 ML IV PRN ×2 (00:13→22:35)
[2021-09-18] MEDS: INSULIN LISPRO 100 UNIT/1 ML 3ML VIAL SQ SCH ×4 (00:42→18:00)
[2021-09-18] MEDS: LORAZEPAM INJ 2 MG/ML VIAL IV PRN ×3 (02:03→16:28)
[2021-09-18] MEDS: PIPERACILLIN/TAZOBACTAM 4.5 GM in SODIUM CHLORIDE 0.9% 100 ML IV SCH ×2 (02:51→11:11)
[2021-09-18 06:05] LABS: BASOPHILS # (AUTO) 0.1 (0.0-0.1); BASOPHILS % 1.1 % (0.0-1.0); EOSINOPHILS # (AUTO) 0.4 (0.0-0.4); EOSINOPHILS % 6.1 % (0.0-6.0); HEMATOCRIT 29.3 % (38.2-49.6); HEMOGLOBIN 9.2 g/dL (14.0-18.0); LYMPHOCYTES # (AUTO) 1.3 (1.0-3.2); LYMPHOCYTES % 17.8 % (18.0-39.1); MEAN CORPUSCULAR HEMOGLOBIN 28.8 pg (28-32); MEAN CORPUSCULAR HGB CONC 31.4 g/dL (31-35); MEAN CORPUSCULAR VOLUME 91.8 fL (81-99); MONOCYTES # (AUTO) 0.8 (0.2-0.8); MONOCYTES % 10.8 % (4.4-11.3); NEUTROPHILS # (AUTO) 4.6 (2.1-6.9); NEUTROPHILS % 63.8 % (38.7-80.0); PLATELET COUNT 362 x10e3/uL (140-360); RED BLOOD COUNT 3.19 x10e6/uL (4.3-5.7); RED CELL DISTRIBUTION WIDTH 19.1 % (11.7-14.4)
[2021-09-18 06:25] LABS: ALBUMIN 2.1 g/dL (3.5-5.0); ALBUMIN/GLOBULIN RATIO 0.4 (0.8-2.0); ANION GAP 13.3 mmol/L (8-16); CALCIUM 8.2 mg/dL (8.4-10.2); CREATININE, SERUM 0.55 mg/dL (0.72-1.25); POTASSIUM 4.3 mmol/L (3.5-5.1)
[2021-09-18] MEDS: FENTANYL 2000MCG/NS 250 250 ML IV SCH (07:32)
[2021-09-18] MEDS: ENOXAPARIN SOD INJ 40 MG/0.4 ML SYR SC SCH ×2 (09:53→21:48)
[2021-09-18] MEDS ORDERED: LORAZEPAM INJ 2 MG/ML VIAL IV ONE (11:00)
[2021-09-18] MEDS: INSULIN GLARGINE 100 UNITS/ML VIAL SQ SCH (21:49)
[2021-09-19] VITALS (25 sets, daily range): BP systolic 100–198; BP diastolic 60–95
[2021-09-19] MEDS: LORAZEPAM INJ 2 MG/ML VIAL IV PRN ×6 (00:23→23:37)
[2021-09-19] MEDS: INSULIN LISPRO 100 UNIT/1 ML 3ML VIAL SQ SCH ×4 (00:25→17:47)
[2021-09-19] MEDS: DEXMEDETOMIDINE 400MCG/NS100ML 100 ML IV PRN ×3 (02:45→11:52)
[2021-09-19] MEDS: FENTANYL 2000MCG/NS 250 250 ML IV PRN ×2 (03:19→22:58)
[2021-09-19] MEDS: ENOXAPARIN SOD INJ 40 MG/0.4 ML SYR SC SCH ×2 (08:14→21:16)
[2021-09-19] MEDS: INSULIN GLARGINE 100 UNITS/ML VIAL SQ SCH (21:17)
[2021-09-20] VITALS (25 sets, daily range): BP systolic 83–218; BP diastolic 47–95
[2021-09-20] MEDS: INSULIN LISPRO 100 UNIT/1 ML 3ML VIAL SQ SCH ×5 (00:50→23:50)
[2021-09-20] MEDS: DEXMEDETOMIDINE 100 ML IV PRN ×3 (01:00→18:07)
[2021-09-20] MEDS: LORAZEPAM INJ 2 MG/ML VIAL IV PRN ×3 (05:10→22:55)
[2021-09-20 06:05] LABS: BASOPHILS # (AUTO) 0.1 (0.0-0.1); BASOPHILS % 0.7 % (0.0-1.0); EOSINOPHILS # (AUTO) 0.6 (0.0-0.4); EOSINOPHILS % 6.4 % (0.0-6.0); HEMATOCRIT 31.5 % (38.2-49.6); HEMOGLOBIN 9.7 g/dL (14.0-18.0); LYMPHOCYTES # (AUTO) 2.8 (1.0-3.2); LYMPHOCYTES % 32.2 % (18.0-39.1); MEAN CORPUSCULAR HEMOGLOBIN 28.5 pg (28-32); MEAN CORPUSCULAR HGB CONC 30.8 g/dL (31-35); MEAN CORPUSCULAR VOLUME 92.6 fL (81-99); MONOCYTES # (AUTO) 0.9 (0.2-0.8); MONOCYTES % 10.7 % (4.4-11.3); NEUTROPHILS # (AUTO) 4.3 (2.1-6.9); NEUTROPHILS % 49.8 % (38.7-80.0); PLATELET COUNT 438 x10e3/uL (140-360); RED CELL DISTRIBUTION WIDTH 18.8 % (11.7-14.4)
[2021-09-20 06:22] LABS: ALBUMIN 2.3 g/dL (3.5-5.0); ALBUMIN/GLOBULIN RATIO 0.4 (0.8-2.0); ANION GAP 13.2 mmol/L (8-16); CALCIUM 9.2 mg/dL (8.4-10.2); CREATININE, SERUM 0.48 mg/dL (0.72-1.25); POTASSIUM 4.2 mmol/L (3.5-5.1)
[2021-09-20] MEDS: ENOXAPARIN SOD INJ 40 MG/0.4 ML SYR SC SCH ×2 (07:53→20:57)
[2021-09-20] MEDS: HYDRALAZINE HCL 20 MG/ML VIAL IV PRN (08:48)
[2021-09-20] MEDS ORDERED: PROPOFOL IV EMULSION 10MG/ML 100 ML ONE (09:55)
[2021-09-20 12:36] LABS: ABG PCO2 52 mmHg (35-45); ABG PH 7.41 (7.35-7.45)
[2021-09-20 12:37] LABS: ABG HCO3 33 mmol/L (22-26); ABG PO2 88 mmHg (80-105); ABG TCO2 34
[2021-09-20] MEDS: CIPROFLOXACIN 400 MG/D5W 200ML 200 ML IV SCH ×2 (12:58→23:50)
[2021-09-20] MEDS: PROPOFOL IV EMULSION 10MG/ML 100 ML IV PRN (14:12)
[2021-09-20] MEDS: FENTANYL 2000MCG/NS 250 250 ML IV PRN (14:13)
[2021-09-20] MEDS: INSULIN GLARGINE 100 UNITS/ML VIAL SQ SCH (20:57)
[2021-09-21] VITALS (41 sets, daily range): BP systolic 66–158; BP diastolic 39–82
[2021-09-21] MEDS: PROPOFOL IV EMULSION 10MG/ML 100 ML IV PRN ×3 (01:55→20:49)
[2021-09-21 05:26] LABS: BASOPHILS % 0.7 % (0.0-1.0); EOSINOPHILS # (AUTO) 0.6 (0.0-0.4); EOSINOPHILS % 9.2 % (0.0-6.0); HEMOGLOBIN 9.6 g/dL (14.0-18.0); LYMPHOCYTES # (AUTO) 1.7 (1.0-3.2); LYMPHOCYTES % 28.5 % (18.0-39.1); MEAN CORPUSCULAR HEMOGLOBIN 28.6 pg (28-32); MEAN CORPUSCULAR VOLUME 92.3 fL (81-99); MONOCYTES # (AUTO) 0.6 (0.2-0.8); MONOCYTES % 10.3 % (4.4-11.3); NEUTROPHILS # (AUTO) 3.1 (2.1-6.9); NEUTROPHILS % 51.1 % (38.7-80.0); PLATELET COUNT 467 x10e3/uL (140-360); RED BLOOD COUNT 3.36 x10e6/uL (4.3-5.7); RED CELL DISTRIBUTION WIDTH 18.7 % (11.7-14.4)
[2021-09-21] MEDS: LORAZEPAM INJ 2 MG/ML VIAL IV PRN ×3 (05:27→23:56)
[2021-09-21 05:52] LABS: ALBUMIN 2.3 g/dL (3.5-5.0); ALBUMIN/GLOBULIN RATIO 0.4 (0.8-2.0); ANION GAP 12.1 mmol/L (8-16); CALCIUM 9.5 mg/dL (8.4-10.2); CREATININE, SERUM 0.53 mg/dL (0.72-1.25); POTASSIUM 4.1 mmol/L (3.5-5.1)
[2021-09-21] MEDS: INSULIN LISPRO 100 UNIT/1 ML 3ML VIAL SQ SCH ×4 (06:37→23:56)
[2021-09-21] MEDS: DEXMEDETOMIDINE 100 ML IV PRN ×3 (07:37→22:03)
[2021-09-21] MEDS: ENOXAPARIN SOD INJ 40 MG/0.4 ML SYR SC SCH (08:43)
[2021-09-21] MEDS: CIPROFLOXACIN 400 MG/D5W 200ML 200 ML IV SCH ×2 (12:14→23:56)
[2021-09-21] MEDS: FENTANYL 2000MCG/NS 250 250 ML IV PRN (13:50)
[2021-09-21] MEDS: INSULIN GLARGINE 100 UNITS/ML VIAL SQ SCH (20:49)
[2021-09-22] VITALS (42 sets, daily range): BP systolic 78–187; BP diastolic 41–99
[2021-09-22] MEDS: PROPOFOL IV EMULSION 10MG/ML 100 ML IV PRN ×4 (03:34→23:57)
[2021-09-22] MEDS: DEXMEDETOMIDINE 100 ML IV PRN ×2 (06:08→14:34)
[2021-09-22 06:27] LABS: BASOPHILS # (AUTO) 0.1 (0.0-0.1); BASOPHILS % 1.1 % (0.0-1.0); EOSINOPHILS # (AUTO) 0.5 (0.0-0.4); EOSINOPHILS % 10.3 % (0.0-6.0); HEMOGLOBIN 8.8 g/dL (14.0-18.0); LYMPHOCYTES # (AUTO) 1.3 (1.0-3.2); LYMPHOCYTES % 24.7 % (18.0-39.1); MEAN CORPUSCULAR HEMOGLOBIN 28.3 pg (28-32); MEAN CORPUSCULAR HGB CONC 30.3 g/dL (31-35); MEAN CORPUSCULAR VOLUME 93.2 fL (81-99); MONOCYTES # (AUTO) 0.5 (0.2-0.8); MONOCYTES % 10.1 % (4.4-11.3); NEUTROPHILS # (AUTO) 2.8 (2.1-6.9); NEUTROPHILS % 53.6 % (38.7-80.0); PLATELET COUNT 390 x10e3/uL (140-360); RED BLOOD COUNT 3.11 x10e6/uL (4.3-5.7); RED CELL DISTRIBUTION WIDTH 18.5 % (11.7-14.4)
[2021-09-22] MEDS: INSULIN LISPRO 100 UNIT/1 ML 3ML VIAL SQ SCH ×3 (06:43→17:06)
[2021-09-22 06:50] LABS: ALBUMIN 2.2 g/dL (3.5-5.0); ALBUMIN/GLOBULIN RATIO 0.4 (0.8-2.0); ANION GAP 12.4 mmol/L (8-16); CALCIUM 9.4 mg/dL (8.4-10.2); CREATININE, SERUM 0.53 mg/dL (0.72-1.25); POTASSIUM 4.4 mmol/L (3.5-5.1)
[2021-09-22] MEDS: LORAZEPAM INJ 2 MG/ML VIAL IV PRN ×2 (08:26→23:57)
[2021-09-22] MEDS: BALSAM PERU/CASTOR OIL 60 GM OINT...G. TP SCH (08:40)
[2021-09-22] MEDS ORDERED: FENTANYL CITRATE/PF 100MCG/2 ML INJ IV ONE (10:00)
[2021-09-22] MEDS ORDERED: FENTANYL CITRATE/PF 100MCG/2 ML INJ ONE (10:04)
[2021-09-22] MEDS: VASOPRESSIN 60 UNIT in DEXTROSE 5% 50ML 57 ML IV PRN (12:00)
[2021-09-22] MEDS: CIPROFLOXACIN 400 MG/D5W 200ML 200 ML IV SCH (12:48)
[2021-09-22] MEDS: ENOXAPARIN SOD INJ 40 MG/0.4 ML SYR SC SCH (16:05)
[2021-09-22] MEDS: FENTANYL 2000MCG/NS 250 250 ML IV PRN (17:44)
[2021-09-22] MEDS: INSULIN GLARGINE 100 UNITS/ML VIAL SQ SCH (21:08)
[2021-09-23] VITALS (70 sets, daily range): BP systolic 94–180; BP diastolic 50–108
[2021-09-23] MEDS: CIPROFLOXACIN 400 MG/D5W 200ML 200 ML IV SCH ×3 (00:33→23:52)
[2021-09-23] MEDS: INSULIN LISPRO 100 UNIT/1 ML 3ML VIAL SQ SCH ×5 (00:34→23:58)
[2021-09-23 05:30] LABS: BASOPHILS % 0.6 % (0.0-1.0); EOSINOPHILS # (AUTO) 0.4 (0.0-0.4); EOSINOPHILS % 6.4 % (0.0-6.0); HEMATOCRIT 26.1 % (38.2-49.6); HEMOGLOBIN 8.4 g/dL (14.0-18.0); LYMPHOCYTES % 15.3 % (18.0-39.1); MEAN CORPUSCULAR HEMOGLOBIN 29.4 pg (28-32); MEAN CORPUSCULAR HGB CONC 32.2 g/dL (31-35); MEAN CORPUSCULAR VOLUME 91.3 fL (81-99); MONOCYTES # (AUTO) 0.6 (0.2-0.8); MONOCYTES % 9.4 % (4.4-11.3); NEUTROPHILS # (AUTO) 4.3 (2.1-6.9); NEUTROPHILS % 67.8 % (38.7-80.0); PLATELET COUNT 247 x10e3/uL (140-360); RED BLOOD COUNT 2.86 x10e6/uL (4.3-5.7); RED CELL DISTRIBUTION WIDTH 17.9 % (11.7-14.4)
[2021-09-23 06:05] LABS: ALBUMIN 2.3 g/dL (3.5-5.0); ALBUMIN/GLOBULIN RATIO 0.4 (0.8-2.0); CALCIUM 9.1 mg/dL (8.4-10.2); CREATININE, SERUM 0.49 mg/dL (0.72-1.25)
[2021-09-23] MEDS: PROPOFOL IV EMULSION 10MG/ML 100 ML IV PRN ×3 (06:33→18:27)
[2021-09-23] MEDS: VASOPRESSIN 60 UNIT in DEXTROSE 5% 50ML 57 ML IV PRN ×2 (07:41→15:27)
[2021-09-23] MEDS: LORAZEPAM INJ 2 MG/ML VIAL IV PRN ×2 (11:25→23:26)
[2021-09-23] MEDS: BALSAM PERU/CASTOR OIL 60 GM OINT...G. TP SCH (12:27)
[2021-09-23 13:35] LABS: ABG HCO3 40 mmol/L (22-26); ABG PCO2 78 mmHg (35-45); ABG PH 7.32 (7.35-7.45); ABG PO2 148 mmHg (80-105); ABG TCO2 42
[2021-09-23] MEDS: FENTANYL 2000MCG/NS 250 250 ML IV PRN ×2 (15:54→18:29)
[2021-09-23] MEDS: DEXMEDETOMIDINE 100 ML IV PRN (16:07)
[2021-09-23] MEDS: ENOXAPARIN SOD INJ 40 MG/0.4 ML SYR SC SCH (16:53)
[2021-09-23] MEDS: INSULIN GLARGINE 100 UNITS/ML VIAL SQ SCH (20:46)
[2021-09-23] MEDS: HYDRALAZINE HCL 20 MG/ML VIAL IV PRN (23:10)
[2021-09-23] MEDS: ACETAMINOPHEN 325 MG/10 ML UDC NG PRN (23:26)
[2021-09-24] VITALS (51 sets, daily range): BP systolic 93–205; BP diastolic 53–105
[2021-09-24] MEDS: PROPOFOL IV EMULSION 10MG/ML 100 ML IV PRN ×4 (00:01→21:28)
[2021-09-24] MEDS: INSULIN LISPRO 100 UNIT/1 ML 3ML VIAL SQ SCH ×4 (05:35→23:59)
[2021-09-24 05:54] LABS: BASOPHILS # (AUTO) 0.1 (0.0-0.1); EOSINOPHILS # (AUTO) 0.5 (0.0-0.4); HEMATOCRIT 28.8 % (38.2-49.6); HEMOGLOBIN 8.9 g/dL (14.0-18.0); LYMPHOCYTES # (AUTO) 1.2 (1.0-3.2); LYMPHOCYTES % 20.6 % (18.0-39.1); MEAN CORPUSCULAR HEMOGLOBIN 28.5 pg (28-32); MEAN CORPUSCULAR HGB CONC 30.9 g/dL (31-35); MEAN CORPUSCULAR VOLUME 92.3 fL (81-99); MONOCYTES # (AUTO) 0.8 (0.2-0.8); NEUTROPHILS # (AUTO) 3.4 (2.1-6.9); NEUTROPHILS % 57.1 % (38.7-80.0); PLATELET COUNT 439 x10e3/uL (140-360); RED BLOOD COUNT 3.12 x10e6/uL (4.3-5.7); RED CELL DISTRIBUTION WIDTH 17.8 % (11.7-14.4)
[2021-09-24 06:18] LABS: ALBUMIN 2.3 g/dL (3.5-5.0); ALBUMIN/GLOBULIN RATIO 0.4 (0.8-2.0); ANION GAP 12.3 mmol/L (8-16); CALCIUM 9.5 mg/dL (8.4-10.2); CREATININE, SERUM 0.56 mg/dL (0.72-1.25); POTASSIUM 4.3 mmol/L (3.5-5.1)
[2021-09-24] MEDS: LORAZEPAM INJ 2 MG/ML VIAL IV PRN ×3 (07:28→22:21)
[2021-09-24] MEDS: BALSAM PERU/CASTOR OIL 60 GM OINT...G. TP SCH (09:34)
[2021-09-24] MEDS: FENTANYL 2000MCG/NS 250 250 ML IV PRN (11:57)
[2021-09-24] MEDS: ENOXAPARIN SOD INJ 40 MG/0.4 ML SYR SC SCH (16:36)
[2021-09-24] MEDS: DEXMEDETOMIDINE 100 ML IV PRN (20:31)
[2021-09-24] MEDS: ACETAMINOPHEN 325 MG/10 ML UDC NG PRN (20:46)
[2021-09-24] MEDS: HYDRALAZINE HCL 20 MG/ML VIAL IV PRN (20:46)
[2021-09-24] MEDS: INSULIN GLARGINE 100 UNITS/ML VIAL SQ SCH (20:47)
[2021-09-25] VITALS (36 sets, daily range): BP systolic 61–178; BP diastolic 37–86
[2021-09-25] MEDS: PROPOFOL IV EMULSION 10MG/ML 100 ML IV PRN ×4 (02:50→20:12)
[2021-09-25 05:07] LABS: BASOPHILS # (AUTO) 0.1 (0.0-0.1); BASOPHILS % 0.7 % (0.0-1.0); EOSINOPHILS # (AUTO) 0.4 (0.0-0.4); EOSINOPHILS % 4.5 % (0.0-6.0); HEMATOCRIT 30.9 % (38.2-49.6); HEMOGLOBIN 9.5 g/dL (14.0-18.0); LYMPHOCYTES # (AUTO) 1.5 (1.0-3.2); LYMPHOCYTES % 14.9 % (18.0-39.1); MEAN CORPUSCULAR HEMOGLOBIN 28.1 pg (28-32); MEAN CORPUSCULAR HGB CONC 30.7 g/dL (31-35); MEAN CORPUSCULAR VOLUME 91.4 fL (81-99); MONOCYTES # (AUTO) 0.7 (0.2-0.8); MONOCYTES % 7.6 % (4.4-11.3); PLATELET COUNT 458 x10e3/uL (140-360); RED BLOOD COUNT 3.38 x10e6/uL (4.3-5.7); RED CELL DISTRIBUTION WIDTH 18.1 % (11.7-14.4)
[2021-09-25 05:34] LABS: ALBUMIN 2.6 g/dL (3.5-5.0); ALBUMIN/GLOBULIN RATIO 0.4 (0.8-2.0); ANION GAP 13.6 mmol/L (8-16); CALCIUM 10.1 mg/dL (8.4-10.2); CREATININE, SERUM 0.55 mg/dL (0.72-1.25); POTASSIUM 4.6 mmol/L (3.5-5.1)
[2021-09-25] MEDS: INSULIN LISPRO 100 UNIT/1 ML 3ML VIAL SQ SCH ×3 (06:24→18:21)
[2021-09-25] MEDS: LORAZEPAM INJ 2 MG/ML VIAL IV PRN ×2 (08:35→12:11)
[2021-09-25] MEDS ORDERED: NOREPINEPHRINE 8 MG/D5W 250 ML 0 ML ONE (09:04)
[2021-09-25] MEDS: BALSAM PERU/CASTOR OIL 60 GM OINT...G. TP SCH (10:20)
[2021-09-25] MEDS: FENTANYL 2000MCG/NS 250 250 ML IV PRN (13:00)
[2021-09-25] MEDS: DEXMEDETOMIDINE 100 ML IV PRN (13:00)
[2021-09-25] MEDS: ENOXAPARIN SOD INJ 40 MG/0.4 ML SYR SC SCH (18:21)
[2021-09-25] MEDS: ACETAMINOPHEN 325 MG/10 ML UDC NG PRN (20:13)
[2021-09-25] MEDS: INSULIN GLARGINE 100 UNITS/ML VIAL SQ SCH (20:28)
[2021-09-25] MEDS ORDERED: VASOPRESSIN 60 UNIT in DEXTROSE 5% 50ML 57 ML IV PRN (22:00)
[2021-09-25] MEDS ORDERED: DEXTROSE 5% 50ML 100 ML IV ONE (22:06)
[2021-09-25] MEDS ORDERED: VASOPRESSIN INJ 20 UNIT/ML VIAL ONE (22:07)
[2021-09-25] MEDS ORDERED: SODIUM CHLORIDE 0.9% 500ML 500 ML IV ONE (22:15)
[2021-09-25] MEDS ORDERED: SODIUM CHLORIDE 0.9% 500ML 500 ML ONE (22:30)
[2021-09-25 22:42] LABS: BASOPHILS # (AUTO) 0.1 (0.0-0.1); BASOPHILS % 0.7 % (0.0-1.0); EOSINOPHILS # (AUTO) 0.7 (0.0-0.4); EOSINOPHILS % 6.7 % (0.0-6.0); HEMATOCRIT 29.7 % (38.2-49.6); LYMPHOCYTES # (AUTO) 2.4 (1.0-3.2); LYMPHOCYTES % 22.7 % (18.0-39.1); MEAN CORPUSCULAR HEMOGLOBIN 28.3 pg (28-32); MEAN CORPUSCULAR HGB CONC 30.3 g/dL (31-35); MEAN CORPUSCULAR VOLUME 93.4 fL (81-99); MONOCYTES % 9.7 % (4.4-11.3); NEUTROPHILS # (AUTO) 6.2 (2.1-6.9); PLATELET COUNT 444 x10e3/uL (140-360); RED BLOOD COUNT 3.18 x10e6/uL (4.3-5.7)
[2021-09-26] VITALS (48 sets, daily range): BP systolic 74–225; BP diastolic 32–106
[2021-09-26] MEDS: INSULIN LISPRO 100 UNIT/1 ML 3ML VIAL SQ SCH ×5 (00:28→23:54)
[2021-09-26] MEDS: LORAZEPAM INJ 2 MG/ML VIAL IV PRN ×3 (05:38→21:10)
[2021-09-26] MEDS: PROPOFOL IV EMULSION 10MG/ML 100 ML IV PRN ×7 (07:18→19:00)
[2021-09-26] MEDS: DEXMEDETOMIDINE 100 ML IV PRN ×2 (07:36→19:46)
[2021-09-26] MEDS: FENTANYL 2000MCG/NS 250 250 ML IV PRN ×4 (07:53→19:00)
[2021-09-26 08:17] LABS: BASOPHILS # (AUTO) 0.1 (0.0-0.1); BASOPHILS % 0.8 % (0.0-1.0); EOSINOPHILS # (AUTO) 0.5 (0.0-0.4); EOSINOPHILS % 4.8 % (0.0-6.0); HEMATOCRIT 28.6 % (38.2-49.6); HEMOGLOBIN 8.6 g/dL (14.0-18.0); LYMPHOCYTES # (AUTO) 1.3 (1.0-3.2); LYMPHOCYTES % 11.8 % (18.0-39.1); MEAN CORPUSCULAR HEMOGLOBIN 27.9 pg (28-32); MEAN CORPUSCULAR HGB CONC 30.1 g/dL (31-35); MEAN CORPUSCULAR VOLUME 92.9 fL (81-99); MONOCYTES # (AUTO) 0.7 (0.2-0.8); MONOCYTES % 6.9 % (4.4-11.3); NEUTROPHILS % 75.5 % (38.7-80.0); PLATELET COUNT 416 x10e3/uL (140-360); RED BLOOD COUNT 3.08 x10e6/uL (4.3-5.7)
[2021-09-26 08:35] LABS: ALBUMIN 2.3 g/dL (3.5-5.0); ALBUMIN/GLOBULIN RATIO 0.4 (0.8-2.0); ANION GAP 12.1 mmol/L (8-16); CALCIUM 9.8 mg/dL (8.4-10.2); CREATININE, SERUM 0.55 mg/dL (0.72-1.25); POTASSIUM 4.1 mmol/L (3.5-5.1)
[2021-09-26] MEDS: SODIUM CHLORIDE 0.9% 1000ML 1,000 ML IV SCH ×2 (08:51→15:55)
[2021-09-26] MEDS: BALSAM PERU/CASTOR OIL 60 GM OINT...G. TP SCH (09:00)
[2021-09-26] MEDS ORDERED: Vancomycin IV 1 GM in SODIUM CHLORIDE 0.9% 250ML 250 ML IV ONE (09:00)
[2021-09-26 09:19] LABS: ABG PH 7.39 (7.35-7.45)
[2021-09-26 09:20] LABS: ABG HCO3 44 mmol/L (22-26); ABG PCO2 73 mmHg (35-45); ABG PO2 67 mmHg (80-105); ABG TCO2 47
[2021-09-26] MEDS: MEROPENEM 1 GM in SODIUM CHLORIDE 0.9% 100 ML IV SCH ×2 (12:00→20:14)
[2021-09-26 12:23] LABS: CLARITY,URINE CLEAR (CLEAR); COLOR,URINE YELLOW (YELLOW); KETONES,URINE NEGATIVE (NEGATIVE); LEUKOCYTE ESTERASE ,URINE NEGATIVE (NEGATIVE); NITRITE,URINE NEGATIVE (NEGATIVE); PROTEIN,URINE DIPSTICK 1+ (NEGATIVE); URINE UROBILINOGEN 0.2 mg/dL (0.2 - 1)
[2021-09-26 12:30] LABS: RBC,URINE 0-5 /HPF (0-5); WBC,URINE (MAN) 0-5 /HPF (0-5)
[2021-09-26] MEDS: ENOXAPARIN SOD INJ 40 MG/0.4 ML SYR SC SCH (17:00)
[2021-09-26] MEDS: INSULIN GLARGINE 100 UNITS/ML VIAL SQ SCH (20:22)
[2021-09-26] MEDS: HYDRALAZINE HCL 20 MG/ML VIAL IV PRN (21:10)
[2021-09-27] VITALS (33 sets, daily range): BP systolic 75–177; BP diastolic 46–91
[2021-09-27] MEDS: PROPOFOL IV EMULSION 10MG/ML 100 ML IV PRN ×3 (02:00→09:12)
[2021-09-27] MEDS: MEROPENEM 1 GM in SODIUM CHLORIDE 0.9% 100 ML IV SCH ×3 (04:11→20:44)
[2021-09-27 05:09] LABS: BASOPHILS # (AUTO) 0.1 (0.0-0.1); BASOPHILS % 1.1 % (0.0-1.0); EOSINOPHILS # (AUTO) 0.7 (0.0-0.4); EOSINOPHILS % 11.7 % (0.0-6.0); HEMATOCRIT 26.7 % (38.2-49.6); HEMOGLOBIN 7.9 g/dL (14.0-18.0); LYMPHOCYTES # (AUTO) 1.7 (1.0-3.2); LYMPHOCYTES % 29.9 % (18.0-39.1); MEAN CORPUSCULAR HEMOGLOBIN 27.9 pg (28-32); MEAN CORPUSCULAR HGB CONC 29.6 g/dL (31-35); MEAN CORPUSCULAR VOLUME 94.3 fL (81-99); MONOCYTES # (AUTO) 0.6 (0.2-0.8); MONOCYTES % 10.1 % (4.4-11.3); NEUTROPHILS # (AUTO) 2.6 (2.1-6.9); NEUTROPHILS % 46.8 % (38.7-80.0); PLATELET COUNT 341 x10e3/uL (140-360); RED BLOOD COUNT 2.83 x10e6/uL (4.3-5.7); RED CELL DISTRIBUTION WIDTH 17.7 % (11.7-14.4)
[2021-09-27 05:30] LABS: ALBUMIN 2.1 g/dL (3.5-5.0); ALBUMIN/GLOBULIN RATIO 0.4 (0.8-2.0); CALCIUM 9.5 mg/dL (8.4-10.2); CREATININE, SERUM 0.56 mg/dL (0.72-1.25)
[2021-09-27] MEDS: INSULIN LISPRO 100 UNIT/1 ML 3ML VIAL SQ SCH ×3 (05:47→18:00)
[2021-09-27] MEDS: DEXMEDETOMIDINE 100 ML IV PRN (05:55)
[2021-09-27] MEDS: FENTANYL 2000MCG/NS 250 250 ML IV PRN ×2 (05:57→11:54)
[2021-09-27] MEDS: BALSAM PERU/CASTOR OIL 60 GM OINT...G. TP SCH (09:12)
[2021-09-27] MEDS: LORAZEPAM INJ 2 MG/ML VIAL IV PRN (09:20)
[2021-09-27] MEDS: PROPOFOL IV EMULSION 10MG/ML 100 ML IV SCH ×3 (14:39→23:35)
[2021-09-27] MEDS ORDERED: PROPOFOL IV EMULSION 10MG/ML 100 ML ONE (14:43)
[2021-09-27] MEDS: ENOXAPARIN SOD INJ 40 MG/0.4 ML SYR SC SCH (18:05)
[2021-09-27] MEDS: INSULIN GLARGINE 100 UNITS/ML VIAL SQ SCH (20:57)
[2021-09-28] VITALS (16 sets, daily range): BP systolic 95–153; BP diastolic 49–78
[2021-09-28] MEDS: FENTANYL 2000MCG/NS 250 250 ML IV PRN ×2 (00:06→18:23)
[2021-09-28] MEDS: INSULIN LISPRO 100 UNIT/1 ML 3ML VIAL SQ SCH ×4 (00:12→17:06)
[2021-09-28 06:09] LABS: BASOPHILS # (AUTO) 0.1 (0.0-0.1); BASOPHILS % 1.1 % (0.0-1.0); EOSINOPHILS # (AUTO) 0.9 (0.0-0.4); EOSINOPHILS % 15.7 % (0.0-6.0); HEMATOCRIT 27.7 % (38.2-49.6); HEMOGLOBIN 9.1 g/dL (14.0-18.0); LYMPHOCYTES # (AUTO) 1.7 (1.0-3.2); LYMPHOCYTES % 30.3 % (18.0-39.1); MEAN CORPUSCULAR HEMOGLOBIN 31.1 pg (28-32); MEAN CORPUSCULAR HGB CONC 32.9 g/dL (31-35); MEAN CORPUSCULAR VOLUME 94.5 fL (81-99); MONOCYTES # (AUTO) 0.5 (0.2-0.8); MONOCYTES % 9.4 % (4.4-11.3); NEUTROPHILS # (AUTO) 2.4 (2.1-6.9); NEUTROPHILS % 43.1 % (38.7-80.0); PLATELET COUNT 226 x10e3/uL (140-360); RED BLOOD COUNT 2.93 x10e6/uL (4.3-5.7); RED CELL DISTRIBUTION WIDTH 17.7 % (11.7-14.4)
[2021-09-28 06:32] LABS: ALBUMIN 2.3 g/dL (3.5-5.0); ALBUMIN/GLOBULIN RATIO 0.4 (0.8-2.0); ALKALINE PHOSPHATASE 85 IU/L (40-150); ANION GAP 10.4 mmol/L (8-16); BLOOD UREA NITROGEN 17 mg/dL (7-26); BUN/CREATININE RATIO 35 (6-25); CALCIUM 9.3 mg/dL (8.4-10.2); CARBON DIOXIDE 35 mmol/L (22-29); CHLORIDE 92 mmol/L (98-107); CREATININE, SERUM 0.49 mg/dL (0.72-1.25); EST GLOMERULAR FILTRATION RATE 172 ML/MIN (60-); GLUCOSE 143 mg/dL (74-118); POTASSIUM 4.4 mmol/L (3.5-5.1); SODIUM 133 mmol/L (136-145)
[2021-09-28 06:34] LABS: ALANINE AMINOTRANSFERASE < 6 IU/L (0-55)
[2021-09-28] MEDS: MEROPENEM 1 GM in SODIUM CHLORIDE 0.9% 100 ML IV SCH ×3 (06:42→20:11)
[2021-09-28] MEDS: BALSAM PERU/CASTOR OIL 60 GM OINT...G. TP SCH (08:44)
[2021-09-28] MEDS: PROPOFOL IV EMULSION 10MG/ML 100 ML IV SCH ×4 (08:45→19:45)
[2021-09-28] MEDS: DEXMEDETOMIDINE 100 ML IV PRN (08:45)
[2021-09-28] MEDS ORDERED: VASOPRESSIN 60 UNIT in DEXTROSE 5% 50ML 57 ML IV PRN (10:00)
[2021-09-28 10:59] LABS: ABG PCO2 102 mmHg (35-45); ABG PH 7.25 (7.35-7.45)
[2021-09-28 11:00] LABS: ABG HCO3 45 mmol/L (22-26); ABG PO2 102 mmHg (80-105); ABG TCO2 18
[2021-09-28] MEDS: LORAZEPAM INJ 2 MG/ML VIAL IV PRN (11:58)
[2021-09-28 14:38] LABS: ABG HCO3 44 mmol/L (22-26); ABG PCO2 98 mmHg (35-45); ABG PH 7.26 (7.35-7.45); ABG PO2 105 mmHg (80-105); ABG TCO2 47
[2021-09-28] MEDS: ENOXAPARIN SOD INJ 40 MG/0.4 ML SYR SC SCH (16:56)
[2021-09-28] MEDS: INSULIN GLARGINE 100 UNITS/ML VIAL SQ SCH (21:18)
[2021-09-29] VITALS (26 sets, daily range): BP systolic 99–206; BP diastolic 56–86
[2021-09-29] MEDS: DEXMEDETOMIDINE 100 ML IV PRN
[2021-09-29] MEDS: PROPOFOL IV EMULSION 10MG/ML 100 ML IV SCH ×6 (00:35→21:34)
[2021-09-29] MEDS: MEROPENEM 1 GM in SODIUM CHLORIDE 0.9% 100 ML IV SCH ×3 (04:36→20:30)
[2021-09-29] MEDS: INSULIN LISPRO 100 UNIT/1 ML 3ML VIAL SQ SCH ×4 (06:00→17:30)
[2021-09-29 07:28] LABS: BASOPHILS # (AUTO) 0.1 (0.0-0.1); BASOPHILS % 1.5 % (0.0-1.0); EOSINOPHILS # (AUTO) 0.8 (0.0-0.4); EOSINOPHILS % 11.3 % (0.0-6.0); HEMATOCRIT 28.9 % (38.2-49.6); HEMOGLOBIN 8.8 g/dL (14.0-18.0); LYMPHOCYTES # (AUTO) 1.7 (1.0-3.2); LYMPHOCYTES % 25.2 % (18.0-39.1); MEAN CORPUSCULAR HEMOGLOBIN 27.8 pg (28-32); MEAN CORPUSCULAR HGB CONC 30.4 g/dL (31-35); MEAN CORPUSCULAR VOLUME 91.2 fL (81-99); MONOCYTES # (AUTO) 0.5 (0.2-0.8); MONOCYTES % 7.7 % (4.4-11.3); NEUTROPHILS # (AUTO) 3.6 (2.1-6.9); PLATELET COUNT 323 x10e3/uL (140-360); RED BLOOD COUNT 3.17 x10e6/uL (4.3-5.7); RED CELL DISTRIBUTION WIDTH 17.3 % (11.7-14.4)
[2021-09-29 07:52] LABS: ALBUMIN 2.4 g/dL (3.5-5.0); ALBUMIN/GLOBULIN RATIO 0.4 (0.8-2.0); ALKALINE PHOSPHATASE 86 IU/L (40-150); ANION GAP 10.6 mmol/L (8-16); BLOOD UREA NITROGEN 16 mg/dL (7-26); BUN/CREATININE RATIO 33 (6-25); CALCIUM 9.9 mg/dL (8.4-10.2); CARBON DIOXIDE 39 mmol/L (22-29); CHLORIDE 92 mmol/L (98-107); CREATININE, SERUM 0.48 mg/dL (0.72-1.25); EST GLOMERULAR FILTRATION RATE 177 ML/MIN (60-); GLUCOSE 98 mg/dL (74-118); POTASSIUM 4.6 mmol/L (3.5-5.1); SODIUM 137 mmol/L (136-145)
[2021-09-29 07:53] LABS: ALANINE AMINOTRANSFERASE < 6 IU/L (0-55)
[2021-09-29] MEDS: LORAZEPAM INJ 2 MG/ML VIAL IV PRN ×2 (08:57→21:58)
[2021-09-29] MEDS: BALSAM PERU/CASTOR OIL 60 GM OINT...G. TP SCH (08:57)
[2021-09-29 10:19] LABS: ABG HCO3 47 mmol/L (22-26); ABG PCO2 75 mmHg (35-45); ABG PO2 96 mmHg (80-105); ABG TCO2 49
[2021-09-29] MEDS: FENTANYL 2000MCG/NS 250 250 ML IV PRN (15:20)
[2021-09-29] MEDS: ENOXAPARIN SOD INJ 40 MG/0.4 ML SYR SC SCH (17:02)
[2021-09-29] MEDS: INSULIN GLARGINE 100 UNITS/ML VIAL SQ SCH (21:00)
[2021-09-29] MEDS: HYDRALAZINE HCL 20 MG/ML VIAL IV PRN (21:58)
[2021-09-29] MEDS: ACETAMINOPHEN 325 MG/10 ML UDC NG PRN (23:18)
[2021-09-30] VITALS (38 sets, daily range): BP systolic 66–191; BP diastolic 46–88
[2021-09-30] MEDS: LORAZEPAM INJ 2 MG/ML VIAL IV PRN ×3 (01:06→12:31)
[2021-09-30] MEDS: MEROPENEM 1 GM in SODIUM CHLORIDE 0.9% 100 ML IV SCH ×3 (03:32→21:13)
[2021-09-30 04:54] LABS: BASOPHILS # (AUTO) 0.1 (0.0-0.1); BASOPHILS % 1.1 % (0.0-1.0); EOSINOPHILS # (AUTO) 0.5 (0.0-0.4); EOSINOPHILS % 4.5 % (0.0-6.0); HEMATOCRIT 31.3 % (38.2-49.6); HEMOGLOBIN 9.6 g/dL (14.0-18.0); LYMPHOCYTES # (AUTO) 1.6 (1.0-3.2); LYMPHOCYTES % 15.4 % (18.0-39.1); MEAN CORPUSCULAR HEMOGLOBIN 27.6 pg (28-32); MEAN CORPUSCULAR HGB CONC 30.7 g/dL (31-35); MEAN CORPUSCULAR VOLUME 89.9 fL (81-99); MONOCYTES # (AUTO) 0.6 (0.2-0.8); MONOCYTES % 5.6 % (4.4-11.3); NEUTROPHILS # (AUTO) 7.7 (2.1-6.9); NEUTROPHILS % 73.1 % (38.7-80.0); PLATELET COUNT 259 x10e3/uL (140-360); RED BLOOD COUNT 3.48 x10e6/uL (4.3-5.7); RED CELL DISTRIBUTION WIDTH 17.4 % (11.7-14.4)
[2021-09-30 05:25] LABS: ALBUMIN 2.6 g/dL (3.5-5.0); ALBUMIN/GLOBULIN RATIO 0.4 (0.8-2.0); ANION GAP 13.4 mmol/L (8-16); CALCIUM 9.9 mg/dL (8.4-10.2); CREATININE, SERUM 0.6 mg/dL (0.72-1.25); POTASSIUM 4.4 mmol/L (3.5-5.1)
[2021-09-30] MEDS: PROPOFOL IV EMULSION 10MG/ML 100 ML IV SCH ×3 (06:09→22:30)
[2021-09-30] MEDS: INSULIN LISPRO 100 UNIT/1 ML 3ML VIAL SQ SCH ×4 (06:30→17:26)
[2021-09-30] MEDS: FENTANYL 2000MCG/NS 250 250 ML IV PRN (10:44)
[2021-09-30] MEDS: BALSAM PERU/CASTOR OIL 60 GM OINT...G. TP SCH (16:15)
[2021-09-30] MEDS: ENOXAPARIN SOD INJ 40 MG/0.4 ML SYR SC SCH (16:16)
[2021-09-30] MEDS: INSULIN GLARGINE 100 UNITS/ML VIAL SQ SCH (21:00)
[2021-10-01] VITALS (21 sets, daily range): BP systolic 80–209; BP diastolic 50–106
[2021-10-01] MEDS: INSULIN LISPRO 100 UNIT/1 ML 3ML VIAL SQ SCH ×4 (00:21→17:38)
[2021-10-01] MEDS: PROPOFOL IV EMULSION 10MG/ML 100 ML IV SCH ×5 (02:30→23:35)
[2021-10-01] MEDS: MEROPENEM 1 GM in SODIUM CHLORIDE 0.9% 100 ML IV SCH (04:19)
[2021-10-01] MEDS: FENTANYL 2000MCG/NS 250 250 ML IV PRN (05:12)
[2021-10-01 06:04] LABS: BASOPHILS # (AUTO) 0.1 (0.0-0.1); BASOPHILS % 1.5 % (0.0-1.0); EOSINOPHILS # (AUTO) 1.3 (0.0-0.4); EOSINOPHILS % 20.9 % (0.0-6.0); HEMATOCRIT 28.7 % (38.2-49.6); HEMOGLOBIN 8.8 g/dL (14.0-18.0); LYMPHOCYTES # (AUTO) 1.7 (1.0-3.2); LYMPHOCYTES % 27.7 % (18.0-39.1); MEAN CORPUSCULAR HEMOGLOBIN 27.8 pg (28-32); MEAN CORPUSCULAR HGB CONC 30.7 g/dL (31-35); MEAN CORPUSCULAR VOLUME 90.8 fL (81-99); MONOCYTES # (AUTO) 0.5 (0.2-0.8); MONOCYTES % 8.3 % (4.4-11.3); NEUTROPHILS # (AUTO) 2.5 (2.1-6.9); NEUTROPHILS % 41.3 % (38.7-80.0); PLATELET COUNT 304 x10e3/uL (140-360); RED BLOOD COUNT 3.16 x10e6/uL (4.3-5.7); RED CELL DISTRIBUTION WIDTH 17.4 % (11.7-14.4)
[2021-10-01 06:37] LABS: ANION GAP 9.5 mmol/L (8-16); CALCIUM 9.4 mg/dL (8.4-10.2); CREATININE, SERUM 0.55 mg/dL (0.72-1.25); POTASSIUM 4.5 mmol/L (3.5-5.1)
[2021-10-01 07:59] LABS: ANISOCYTOSIS SLIGHT; EOSINOPHILS % (MANUAL) 25 % (0-7); HYPOCHROMASIA SLIGHT; LYMPHOCYTES % (MANUAL) 22 % (19-48); MONOCYTES % (MANUAL) 4 % (3.4-9.0); NEUTROPHILS % (MANUAL) 46 % (40-74); PLATELET ESTIMATE ADEQUATE; PLATELET MORPHOLOGY COMMENT NORMAL; RBC MORPHOLOGY COMMENT NORMAL
[2021-10-01] MEDS: BALSAM PERU/CASTOR OIL 60 GM OINT...G. TP SCH (08:09)
[2021-10-01 10:01] LABS: ABG PH 7.39 (7.35-7.45)
[2021-10-01 10:02] LABS: ABG HCO3 47 mmol/L (22-26); ABG PCO2 79 mmHg (35-45); ABG PO2 88 mmHg (80-105); ABG TCO2 49
[2021-10-01] MEDS: LORAZEPAM INJ 2 MG/ML VIAL IV PRN (10:47)
[2021-10-01] MEDS: ENOXAPARIN SOD INJ 40 MG/0.4 ML SYR SC SCH (17:15)
[2021-10-01] MEDS: DEXMEDETOMIDINE 100 ML IV PRN (22:25)
[2021-10-01] MEDS ORDERED: LORAZEPAM INJ 2 MG/ML VIAL IV PRN (23:30)
[2021-10-02] VITALS (20 sets, daily range): BP systolic 91–163; BP diastolic 55–89
[2021-10-02] MEDS: FENTANYL 2000MCG/NS 250 250 ML IV PRN ×2 (01:04→16:35)
[2021-10-02] MEDS: INSULIN LISPRO 100 UNIT/1 ML 3ML VIAL SQ SCH ×4 (01:14→17:51)
[2021-10-02] MEDS: PROPOFOL IV EMULSION 10MG/ML 100 ML IV SCH ×4 (04:07→17:17)
[2021-10-02 06:05] LABS: BASOPHILS # (AUTO) 0.1 (0.0-0.1); BASOPHILS % 1.3 % (0.0-1.0); EOSINOPHILS # (AUTO) 1.2 (0.0-0.4); EOSINOPHILS % 15.7 % (0.0-6.0); HEMATOCRIT 28.8 % (38.2-49.6); HEMOGLOBIN 9.2 g/dL (14.0-18.0); LYMPHOCYTES # (AUTO) 1.8 (1.0-3.2); LYMPHOCYTES % 22.6 % (18.0-39.1); MEAN CORPUSCULAR HEMOGLOBIN 29.3 pg (28-32); MEAN CORPUSCULAR HGB CONC 31.9 g/dL (31-35); MEAN CORPUSCULAR VOLUME 91.7 fL (81-99); MONOCYTES # (AUTO) 0.7 (0.2-0.8); MONOCYTES % 8.4 % (4.4-11.3); NEUTROPHILS % 51.6 % (38.7-80.0); PLATELET COUNT 211 x10e3/uL (140-360); RED BLOOD COUNT 3.14 x10e6/uL (4.3-5.7); RED CELL DISTRIBUTION WIDTH 17.5 % (11.7-14.4)
[2021-10-02 06:27] LABS: ALBUMIN 2.5 g/dL (3.5-5.0); ALBUMIN/GLOBULIN RATIO 0.4 (0.8-2.0); ALKALINE PHOSPHATASE 90 IU/L (40-150); ANION GAP 11.4 mmol/L (8-16); BLOOD UREA NITROGEN 14 mg/dL (7-26); BUN/CREATININE RATIO 29 (6-25); CALCIUM 9.5 mg/dL (8.4-10.2); CARBON DIOXIDE 38 mmol/L (22-29); CHLORIDE 89 mmol/L (98-107); CREATININE, SERUM 0.49 mg/dL (0.72-1.25); EST GLOMERULAR FILTRATION RATE 172 ML/MIN (60-); GLUCOSE 106 mg/dL (74-118); POTASSIUM 4.4 mmol/L (3.5-5.1); SODIUM 134 mmol/L (136-145)
[2021-10-02 07:15] LABS: ALANINE AMINOTRANSFERASE < 6 IU/L (0-55)
[2021-10-02] MEDS: BALSAM PERU/CASTOR OIL 60 GM OINT...G. TP SCH (08:30)
[2021-10-02] MEDS ORDERED: LORAZEPAM INJ 2 MG/ML VIAL IV PRN ×2 (10:00)
[2021-10-02] MEDS: ENOXAPARIN SOD INJ 40 MG/0.4 ML SYR SC SCH (16:32)
== END 2021-10-02 19:47 | DRG 4 ==
LOC: ER 12:30 → ERHOLD 13:19 → ICU 15:46 → COVIDICU 08-22 12:13 → ICU 09-05 13:25
PROVIDERS: ADMIT Internal Medicine; ATTEND Internal Medicine
PROC: XW033E5 Introduction of Remdesivir Anti-infective into Peripheral Vein, Percutaneous Approach, New Technology Group 5 (ICD-10-PCS; 2021-07-13)
PROC: 5A0935A Assistance with Respiratory Ventilation, Less than 24 Consecutive Hours, High Flow/Velocity Cannula (ICD-10-PCS; 2021-07-13)
PROC: 02HV33Z Insertion of Infusion Device into Superior Vena Cava, Percutaneous Approach (ICD-10-PCS; 2021-07-15)
PROC: 5A0935A Assistance with Respiratory Ventilation, Less than 24 Consecutive Hours, High Flow/Velocity Cannula (ICD-10-PCS; 2021-07-15)
PROC: XW0DXM6 Introduction of Baricitinib into Mouth and Pharynx, External Approach, New Technology Group 6 (ICD-10-PCS; 2021-07-15)
PROC: 5A0935A Assistance with Respiratory Ventilation, Less than 24 Consecutive Hours, High Flow/Velocity Cannula (ICD-10-PCS; 2021-07-16)
PROC: 5A1955Z Respiratory Ventilation, Greater than 96 Consecutive Hours (ICD-10-PCS; principal; 2021-07-17)
PROC: 0BH18EZ Insertion of Endotracheal Airway into Trachea, Via Natural or Artificial Opening Endoscopic (ICD-10-PCS; 2021-07-17)
PROC: 5A09357 Assistance with Respiratory Ventilation, Less than 24 Consecutive Hours, Continuous Positive Airway Pressure (ICD-10-PCS; 2021-07-17)
PROC: 03HB33Z Insertion of Infusion Device into Right Radial Artery, Percutaneous Approach (ICD-10-PCS; 2021-07-18)
PROC: 0DH68UZ Insertion of Feeding Device into Stomach, Via Natural or Artificial Opening Endoscopic (ICD-10-PCS; 2021-07-23)
PROC: 0B113F4 Bypass Trachea to Cutaneous with Tracheostomy Device, Percutaneous Approach (ICD-10-PCS; 2021-07-23 10:22)
PROC: 02HV33Z Insertion of Infusion Device into Superior Vena Cava, Percutaneous Approach (ICD-10-PCS; 2021-07-26)
PROC: 3E0433Z Introduction of Anti-inflammatory into Central Vein, Percutaneous Approach (ICD-10-PCS; 2021-07-28)
PROC: 03HC33Z Insertion of Infusion Device into Left Radial Artery, Percutaneous Approach (ICD-10-PCS; 2021-08-16)
PROC: 02HV33Z Insertion of Infusion Device into Superior Vena Cava, Percutaneous Approach (ICD-10-PCS; 2021-08-29)
PROC: 02HV33Z Insertion of Infusion Device into Superior Vena Cava, Percutaneous Approach (ICD-10-PCS; 2021-09-12)
PROC: 30243N1 Transfusion of Nonautologous Red Blood Cells into Central Vein, Percutaneous Approach (ICD-10-PCS; 2021-09-17)
PROC: 02HV33Z Insertion of Infusion Device into Superior Vena Cava, Percutaneous Approach (ICD-10-PCS; 2021-09-18)
PROC: 3E043XZ Introduction of Vasopressor into Central Vein, Percutaneous Approach (ICD-10-PCS; 2021-09-22)
DX: U07.1 COVID-19 (principal); J80 Acute respiratory distress syndrome; J12.82 Pneumonia due to coronavirus disease 2019; J15.6 Pneumonia due to other Gram-negative bacteria; G93.41 Metabolic encephalopathy; R65.21 Severe sepsis with septic shock; K85.90 Acute pancreatitis without necrosis or infection, unspecified; A41.59 Other Gram-negative sepsis; E87.1 Hypo-osmolality and hyponatremia; E87.4 Mixed disorder of acid-base balance; Z16.12 Extended spectrum beta lactamase (ESBL) resistance; E87.0 Hyperosmolality and hypernatremia; I47.1 Supraventricular tachycardia; N17.9 Acute kidney failure, unspecified; G72.81 Critical illness myopathy; T82.7XXA Infection and inflammatory reaction due to other cardiac and vascular devices, implants and grafts, initial encounter; E83.51 Hypocalcemia; E88.09 Other disorders of plasma-protein metabolism, not elsewhere classified; E11.65 Type 2 diabetes mellitus with hyperglycemia; E87.5 Hyperkalemia; R00.1 Bradycardia, unspecified; T44.4X5A Adverse effect of predominantly alpha-adrenoreceptor agonists, initial encounter; Y92.230 Patient room in hospital as the place of occurrence of the external cause; R13.10 Dysphagia, unspecified; D63.8 Anemia in other chronic diseases classified elsewhere; Z86.718 Personal history of other venous thrombosis and embolism; K74.60 Unspecified cirrhosis of liver; E83.42 Hypomagnesemia; E87.6 Hypokalemia; B02.9 Zoster without complications; E78.1 Pure hyperglyceridemia; T41.295A Adverse effect of other general anesthetics, initial encounter; E11.649 Type 2 diabetes mellitus with hypoglycemia without coma; D72.10 Eosinophilia, unspecified; B96.20 Unspecified Escherichia coli [E. coli] as the cause of diseases classified elsewhere; B96.1 Klebsiella pneumoniae [K. pneumoniae] as the cause of diseases classified elsewhere; B96.89 Other specified bacterial agents as the cause of diseases classified elsewhere; B96.5 Pseudomonas (aeruginosa) (mallei) (pseudomallei) as the cause of diseases classified elsewhere
CPT/HCPCS: 36415; 36569; 36600; 70450; 70551; 71045; 71250; 74018; 74176; 80048; 80053; 80061; 80202; 81001; 82728; 82805; 82948; 83036; 83605; 83615; 83735; 84100; 84132; 84295; 84443; 85014; 85018; 85025; 85379; 85610; 85730; 86141; 86850; 86900; 86920; 87040; 87070; 87071; 87086; 87186; 87205; 93005; 93306; 93971; 94002; 94003; 94640; 94799; 96361; 96366; 96372; 97139; 99251; 99285; J0248; J0330; J0360; J0692; J0696; J1100; J1450; J1650; J1720; J1815; J1817; J1940; J2001; J2060; J2185; J2250; J2543; J2765; J2920; J2930; J2997; J3010; J3370; J7030; J7040; J7050; J7121; J7799; P9016; P9047; U0002